=== PATIENT | female | born 1935 | race Caucasian/White ===

== ENCOUNTER 2016-07-17 18:00 | Inpatient (IN) | payer MEDICARE ==
[~2016-07-17] VITALS: Ht 149.9 cm; Wt 59.5 kg
[~2016-07-17 18:00] MED LIST: ASPI-611 PO; ATOR20TA18 PO; CEPH500C2 PO; DEXT37.56 PO; ESCI10TA PO; GLIM2TAB3 PO; HALO0.5T PO; LISI-625 PO; METF500T4 PO; TIMO5DRO7 RIGHT EYE
--- OUTSIDE RECORDS SUMMARY | 2016-07-17 18:03 | XMS REPORT | Referral Summary ---
Author Author [facility], Family Medicine Organization [facility] Address Unknown Phone Unavailable Care Team Providers Care Care Management Associate Name Role Phone Carlos Vasquez Primary Care Physician [phone] Encounter VC Date(s): 04/03/16 - 04/03/16 [facility], [address] [place] [id number] Discharge Diagnosis: Leg edema Discharge Diagnosis: Benign hypertension Discharge Diagnosis: E-coli UTI Discharge Diagnosis: Diabetes type 2, controlled Discharge Diagnosis: Confusion Discharge Disposition: 01-Home or Self Care Attending Physician: Shanna Umana APRN Admitting Physician: Shanna Umana APRN Vital Signs Most recent to 1 oldest [Reference Range]: Temperature Tympanic 36.0 degC [36.6-38.1 degC] *LOW* (04/03/16 3:52 PM) Peripheral Pulse 116 bpm Rate [60-100 bpm] *HI* (04/03/16 3:52 PM) Blood Pressure 156/64 mmHg [90-140/60-90 mmHg] *HI* (04/03/16 3:52 PM) SpO2 97 % (04/03/16 3:52 PM) Problem List Condition Effective Dates Status Health Status Informant Anemia(Confirmed) Active Benign Active hypertension(Confirm ed) OAB (overactive Active bladder)(Confirmed) Chicken < 01/20/14 Resolved pox(Confirmed) Female bladder Active prolapse(Confirmed) Iron deficiency Active anemia (disorder)(Confirmed ) Iron deficiency Active anemia(Confirmed) Mixed hyperlipidemia Active (disorder)(Confirmed ) Mixed Active hyperlipidemia(Confi rmed) Nonproliferative Active diabetic retinopathy (disorder)(Confirmed ) Osteoarthritis(Confi Active rmed) Osteopenia(Confirmed Active ) Diabetes type 2, Active controlled(Confirmed ) Vitamin B12 Active deficiency(Confirmed ) Allergies, Adverse Reactions, Alerts Substance Reaction Severity Status aloe vera Active ciprofloxacin nausea Active naproxen Active sulfamethoxazole n/v Active trimethoprim n/v Active Medications aspirin 81 mg oral tablet 1 tabs, Oral, Daily, 0 Refill(s) Start Date: 01/20/14 Status: Ordered atorvastatin 20 mg oral tablet See Instructions, TAKE ONE-HALF TABLET BY MOUTH ONCE DAILY, # 45 tabs, 3 Refill( s), eRx: [id number], TAKE ONE-HALF TABLET BY MOUTH ONCE DAILY Start Date: 12/14/15 Status: Ordered Detrol 1 mg oral tablet 1 mg 1 tabs, Oral, Bedtime (once a day), 2 tabs, # 60 tabs, 0 Refill(s), Pharmacy: [place] [id number], 1 tabs Oral Bedtime (once a day) Start Date: 09/02/14 Status: Ordered Diltiazem Hydrochloride CD 240 mg/24 hours oral capsule, extended release 240 mg 1 caps, Oral, Daily, # 90 caps, 1 Refill(s), Pharmacy: [place] [id number], 1 caps Oral Daily Start Date: 07/07/15 Status: Ordered furosemide 20 mg oral tablet 20 mg 1 tabs, Oral, Daily, # 30 tabs, 0 Refill(s), Pharmacy: [place] [id number], 1 tabs Oral Daily Start Date: 04/03/16 Status: Ordered glimepiride 2 mg oral tablet See Instructions, TAKE ONE half TABLET BY MOUTH ONCE DAILY, # 90 tabs, 1 Refill (s), eRx: [id number], TAKE ONE TABLET BY MOUTH ONCE DAILY Start Date: 12/01/15 Status: Ordered Lexapro 10 mg oral tablet 10 mg 1 tabs, Oral, Daily, # 30 tabs, 0 Refill(s) Start Date: 04/03/16 Status: Ordered lisinopril 40 mg oral tablet See Instructions, TAKE ONE half TABLET BY MOUTH ONCE DAILY, # 30 tabs, 5 Refill( s), eRx: [id number], TAKE ONE TABLET BY MOUTH ONCE DAILY Start Date: 12/01/15 Status: Ordered metFORMIN 500 mg oral tablet See Instructions, TAKE TWO TABLETS BY MOUTH TWICE DAILY, # 360 tabs, 1 Refill(s) , eRx: [facility]28, TAKE TWO TABLETS BY MOUTH TWICE DAILY Start Date: 04/03/16 Status: Ordered Miscellaneous DME DME Item SEPTEMBER SUBSTITUE: SYRINGE TO INJECT VITAMIN B12 1ML, See Instructions, # 50 Each, 11 Refill(s), Pharmacy: [id number] SUBSTITUE: SYRINGE TO INJECT VITAMIN B12 1ML, Supply Start Date: 10/30/14 Status: Ordered potassium chloride 10 mEq oral tablet, extended release 10 mEq 1 tabs, Oral, Daily, # 30 tabs, 0 Refill(s), Pharmacy: [facility], 1 tabs Oral Daily Start Date: 04/03/16 Status: Ordered timolol maleate 0.5% ophthalmic solution 1 drops, Eye-Right, Daily, 0 Refill(s) Start Date: 08/04/15 Status: Ordered Results No data available for this section Immunizations Vaccine Date Refusal Reason tetanus/diphth/pertuss (Tdap) adult/adol 01/09/12 influenza virus vaccine, inactivated 01/26/16 influenza virus vaccine, live 02/11/13 influenza virus vaccine, live 02/16/12 pneumococcal 13-valent conjugate vaccine 07/24/14 pneumococcal 23-polyvalent vaccine 12/05/04 zoster vaccine live 01/09/12 Procedures Procedure Date Related Diagnosis Body Site Diabetic foot examination 01/26/16 Arthroscopy of knee 12/30/08 Chondroplasty 12/30/08 Carpal tunnel release Hysterectomy Pars plana vitrectomy Tonsillectomy Social History Social History Type Response Smoking Status Never smoker Assessment and Plan Extracted from: Title: Office Visit Note-UTI/other Author: Shanna Umana COLLECTIONS TECHNICIAN Date: 04/03/16 issues Assessment/Plan 1.E-coli UTI Sx improving. Cont Keflex. Encourage patient to push fluids. 2.Diabetes type 2, controlled Diabetes was under good control when on medications. I suspect as we discussed with him going on for the last few weeks at home that she has not been taking her medications correctly. I anticipate her blood sugars normalizing over the next few days. Plan to recheck onThursday. 3.Benign hypertension Blood pressure under acceptable control. Mildly tachycardic. Suspected tachycardia related to being off verapamil 4.Confusion Multifactorialfactorial. Could be related to infection, mild hyperglycemia 5.Leg edema Suspect related to tachycardia and fluid bolus in the ER. Furosemide 20 mg daily pluspotassium 10 mEq daily. Discussion with patient and son regarding medications. He is going to set these up for patient. I think for now to reasonable to continue the Lexapro. If confusion persists we may want to change that. Plan follow-up on or soonerif things change.
--- OUTSIDE RECORDS SUMMARY | 2016-07-17 18:04 | XMS REPORT | Referral Summary ---
Author Author [facility], [facility] Medicine Organization [facility] Address Unknown Phone Unavailable Care Team Providers Care Senior Ios Developer Name Role Phone Carlos Vasquez Primary Care Physician [phone] Encounter VC Date(s): 04/10/16 - 04/10/16 [facility], [address] [place] [address] Discharge Diagnosis: E-coli UTI Discharge Diagnosis: Mild depression Discharge Diagnosis: Hyponatremia Discharge Diagnosis: Benign hypertension Discharge Disposition: 01-Home or Self Care Attending Physician: Shanna Umana APRN Admitting Physician: Shanna Umana APRN Vital Signs Most recent to 1 oldest [Reference Range]: Temperature Tympanic 36.3 degC [36.6-38.1 degC] *LOW* (04/10/16 10:12 AM) Peripheral Pulse 88 bpm Rate [60-100 bpm] (04/10/16 10:12 AM) Blood Pressure 122/66 mmHg [90-140/60-90 mmHg] (04/10/16 10:12 AM) Problem List Condition Effective Dates Status Health Status Informant Anemia(Confirmed) Active Benign Active hypertension(Confirm ed) OAB (overactive Active bladder)(Confirmed) Chicken < 01/20/14 Resolved pox(Confirmed) Female bladder Active prolapse(Confirmed) E-coli Active UTI(Confirmed) Iron deficiency Active anemia (disorder)(Confirmed ) Iron [...] # 45 tabs, 3 Refill( s), eRx: [id number], TAKE ONE-HALF TABLET BY MOUTH ONCE DAILY Start Date: 12/14/15 Status: Ordered Detrol 1 mg oral tablet 1 mg 1 tabs, Oral, Bedtime (once a day), 2 tabs, # 60 tabs, 0 Refill(s), Pharmacy: [place] [id number], 1 tabs Oral Bedtime (once a day) Start Date: 09/02/14 Status: Ordered Diltiazem Hydrochloride CD 240 mg/24 hours oral capsule, extended release 240 mg 1 caps, Oral, Daily, # 90 caps, 1 Refill(s), Pharmacy: [place] [id number], 1 caps Oral Daily Start Date: 07/07/15 Status: Ordered furosemide 20 mg oral tablet 20 mg 1 tabs, Oral, Daily, # 30 tabs, 0 Refill(s), Pharmacy: [place] [id number], 1 tabs Oral Daily Start Date: 04/03/16 Status: Ordered glimepiride 2 mg oral tablet See Instructions, TAKE ONE half TABLET BY MOUTH ONCE DAILY, # 90 tabs, 1 Refill (s), eRx: [facility] 2428, TAKE ONE TABLET BY MOUTH ONCE DAILY Start Date: 12/01/15 Status: Ordered Lexapro 10 mg oral tablet 10 mg 1 tabs, Oral, Daily, # 30 tabs, 0 Refill(s) Start Date: 04/03/16 Status: Ordered lisinopril 40 mg oral tablet See Instructions, TAKE ONE half TABLET BY MOUTH ONCE DAILY, # 30 tabs, 5 Refill( s), eRx: [facility]28, TAKE ONE TABLET BY MOUTH ONCE DAILY Start Date: 12/01/15 Status: Ordered metFORMIN 500 mg oral tablet See Instructions, TAKE TWO TABLETS BY MOUTH TWICE DAILY, # 360 tabs, 1 Refill(s) , eRx: [facility] 2428, TAKE TWO TABLETS BY MOUTH TWICE DAILY Start Date: 04/03/16 Status: Ordered Miscellaneous DME DME Item MAY SUBSTITUE: SYRINGE TO INJECT VITAMIN B12 1ML, See Instructions, # 50 Each, 11 Refill(s), Pharmacy: [facility] [id number] SUBSTITUE: SYRINGE TO INJECT VITAMIN B12 1ML, Supply Start Date: 10/30/14 Status: Ordered potassium chloride 10 mEq oral tablet, extended release 10 mEq 1 tabs, Oral, Daily, # 30 tabs, 0 Refill(s), Pharmacy: [id number], 1 tabs Oral Daily Start Date: 04/03/16 Status: Ordered timolol maleate 0.5% ophthalmic solution 1 drops, Eye-Right, Daily, 0 Refill(s) Start Date: 08/04/15 Status: Ordered Results Hematology Most recent to 1 oldest [Reference Range]: WBC [4.8-10.8 10.6 10*3/uL 10*3/uL] (04/10/16 11:02 AM) RBC [4.00-5.20] 4.06 (04/10/16 11:02 AM) Hgb [12.0-16.0 11.0 gm/dL gm/dL] *LOW* (04/10/16 11:02 AM) Hct [37.0-47.0 %] 34.1 % *LOW* (04/10/16 11:02 AM) MCV [82.0-99.0 fL] 84.0 fL (04/10/16 11:02 AM) MCH [27.0-32.0 pg] 27.1 pg (04/10/16 11:02 AM) MCHC [32.0-36.0 32.3 gm/dL gm/dL] (04/10/16 11:02 AM) RDW [11.5-14.5 %] 14.1 % (04/10/16 11:02 AM) Platelet [150-400 265 10*3/uL 10*3/uL] (04/10/16 11:02 AM) MPV [8.8-14.8 fL] 11.0 fL (04/10/16 11:02 AM) Immature 0.3 % Granulocytes (04/10/16 11:02 AM) [0.0-1.0 %] Neutrophils [51-75 65 % %] (04/10/16 11:02 AM) Lymphocytes [20-46 26 % %] (04/10/16 11:02 AM) Monocytes [4-11 %] 7 % (04/10/16 11:02 AM) Eosinophils [0-4 %] 2 % (04/10/16 11:02 AM) Basophils [0-2 %] 0 % (04/10/16 11:02 AM) Neutro Absolute 6.89 10*3 [1.90-7.00 10*3] (04/10/16 11:02 AM) Lymph Absolute 2.75 10*3 [0.80-3.30 10*3] (04/10/16 11:02 AM) [place] Absolute 0.76 10*3 [0.30-1.00 10*3] (04/10/16 11:02 AM) Eos Absolute 0.18 10*3 [0.00-0.50 10*3] (04/10/16 11:02 AM) Baso Absolute 0.04 10*3 [0.00-0.20 10*3] (04/10/16 11:02 AM) Chemistry Most recent to 1 oldest [Reference Range]: BNP [0-99 pg/mL] 29 pg/mL (04/10/16 11:02 AM) Sodium Venous 137 mmol/L [136-144 mmol/L] (04/10/16:02 AM) Potassium Venous 3.9 mmol/L 1 [3.6-5.1 mmol/L] (04/10/16 11:02 AM) Calcium Ionized 1.17 mmol/L Venous [1.19-1.41 *LOW* mmol/L] (04/10/16: AM) Total CO2 Venous 25 mmol/L [25-29 mmol/L] (04/10/16 11:02 AM) Glucose Venous 110 mg/dL [70-100 mg/dL] *HI* (04/10/16 11:02 AM) BUN Venous [4-20] 28 *HI* (04/10/16 11:02 AM) Creatinine Venous 1.1 mg/dL [0.4-1.0 mg/dL] *HI* (04/10/16 11:02 AM) Venous CL [99-109 95 mmol/L mmol/L] *LOW* (04/10/16 11:02 AM) TSH with Reflex Free 2.09 T4 [0.35-4.94] (04/10/16 11:02 AM) Hgb A1c [4.1-5.6 %] 7.1 % *HI* (04/10/16 11:02 AM) eAvg Glucose 157.1 mg/dL (04/10/16 11:02 AM) 1Result Comment: This test was performed on a whole blood specimen. The presence or absence of hemolysis cannot be assessed. Hemolysis can falsely elevate potassium levels. Normals are for venous specimens only. Immunizations Vaccine Date Refusal Reason tetanus/diphth/pertuss (Tdap) [...] and Plan Extracted from: Title: Office Visit Note-confusion Author: Shanna Umana CUSHION PADDER Date: 04/10/16 recheck Assessment/Plan 1.Mental confusion Improvingover the last week. Suspect her confusion was multifactorial. Sunday continue providing full-time care. Encouraged him to work towarda long-term solutionto that she has optionsavailable to her. She has completed DO NOT RESUSCITATE paperwork. 2.Diabetes type 2, controlled Improving control now that she is back on medications and eating appropriately. Continue to monitor. No medication changes. Plan follow-up in one week. Ordered: Hemoglobin A1c 3.Leg edema Improving. Continue furosemide. Chemistry today shows normalrenal function. Electrolytes acceptable. 4.Hyponatremia History of hyponatremia. I think this isimportant to keep in mind if she developsincreasing confusion. 5.Benign hypertension Well controlled. Continue same. 6.E-coli UTI Clinically improving. Complete course of Keflex. 7.Mild depression Recently started on Lexapro. Mood seems to be better today. Anemia Mild. Near baseline. Plan follow-up in one week or sooner if needs arise. Overall she is significantly better than she was a week ago.
--- OUTSIDE RECORDS SUMMARY | 2016-07-17 18:05 | XMS REPORT | Continuity of Care Document ---
Author Author [facility] Organization [facility] Address Unknown Phone Unavailable Support Name Relationship Address Phone PHYLLISELIEL PARIKH HALLEY Caregiver [address] [place] [address] Unavailable DANNY KNOX MD Caregiver [address] [place] [id number] Unavailable DANNY KONX MD Caregiver [address] [place] [phone] Unavailable LIVSHAYLEE SHARPIE Next Of Kin [address] [place], [place] [id number] Insurance Providers Guarantor Sherice Robles Address [address] [place] [address] Email DENIED/NO TO PORTAL Payer Medicare Policy Number [id number] Subscriber's Name Sherice Robles Relationship 18 Self Effective Date 00 Payer [facility] Policy Number [id number] Subscriber's Name Sherice Robles Relationship 18 Self Group Number [id number] Advance Directives Directive Response Recorded Date/Time Dr Lozano Resuscitation Status Do Not Resuscitate 06/16/16 4:00pm Resuscitation Documents on File No 06/16/16 8:03pm DPOA for Healthcare Only Yes 06/17/16 11:11am Living Will No 06/16/16 8:03pm Problems Active Problems Medical Problem Onset Date Status Acute encephalopathy Unknown Acute Delirium due to general medical condition Unknown Acute Depression Unknown Chronic Dyslipidemia Unknown Chronic Generalized muscle weakness Unknown Acute Hypertension Unknown Chronic Hypertension Unknown Chronic Mild dementia Unknown Chronic Neurocognitive disorder Unknown Chronic Type II diabetes mellitus Unknown Chronic UTI (urinary tract infection) Unknown Resolved Past Problems Medical Problem Onset Date Dehydration Unknown Dementia Unknown Depression Unknown UTI (urinary tract infection) Unknown UTI (urinary tract infection) Unknown Urinary tract infection Unknown Medications Current Home Medications Medication Dose Units Route Directions Days Qty Instructions Start Date Aspirin 81 Mg Tablet 81 Mg Oral Daily 12/29/08 Atorvastatin Calcium (Lipitor) 20 Mg Tablet 10 Mg Oral Qd Cephalexin 500 Mg Capsule 500 Mg Oral Q8h @ 0100/0900/1700 5 Days 15 Capsule 02/21/17 Dextrose (Glutose 15) 37.5 Gm Gel..gram. 37.5 G Oral As Needed as needed for Hypoglycemia 1 Application 06/16/16 Escitalopram Oxalate (Lexapro) 10 Mg Tablet 1 Tab Oral Daily 30 Tablet 03/31/16 Glimepiride 2 Mg Tablet 2 Mg Oral Qd 06/13/16 Haloperidol 0.5 Mg Tablet 0.5 Mg Oral Every 4 Hours as needed for Agitation / Restlessness 30 Tablet 06/16/16 Haloperidol 0.5 Mg Tablet 0.5 Mg Oral Twice A Day 60 Tablet Lisinopril 5 Mg Tablet 5 Mg Oral Daily for Hypertension 06/16/16 Metformin Hcl 500 Mg Tablet 500 Mg Oral Twice Daily With Meals Take one tablet, by mouth, 2 times a day with Meals. 06/13/16 Timolol Maleate 5 Ml Drops 1 Drop Right Eye Only Twice A Day 5 Milliliter 06/13/16 Past Home Medications Medication Directions Ordered Status Cephalexin 500 Mg Capsule, 500 Mg Oral Q8h @ 0100/0900/1700 06/16/16 Discontinued Dextrose 50 % In Water (Dextrose 50%-Water Abboject) 50 Ml Syringe, 25 Ml Intraven As Needed as needed for Hypoglycemia 06/16/16 Discontinued Furosemide 20 Mg Tablet, 10 Mg Oral Qd 06/13/16 Discontinued Haloperidol 0.5 Mg Tablet, 0.5 Mg Oral Twice A Day 06/16/16 Discontinued Insulin Regular, Human (Humulin R) 1 Ml Inj, 0 Sub-Q Sliding Scale as needed for Prn Orders 06/16/16 Discontinued Lisinopril 10 Mg Tablet, 10 Mg Oral Daily 06/16/16 Discontinued Lisinopril 5 Mg Tablet, 5 Mg Oral Daily for Hypertension 06/13/16 Discontinued Social History Social History Problem Response Recorded Date/Time Onset Date Status Reason for Hospitalization UTI, Generalized weakness, Disuse myopathy, encephalopathy 06/27/2016 1:41pm Not Applicable Not Applicable Hx Substance Use No 06/13/2016 5:30pm Not Applicable Not Applicable Hx Alcohol Use No 06/13/2016 5:30pm Not Applicable Not Applicable Has the pt used tobacco in the last 12 months No 06/16/2016 8:06pm Not Applicable Not Applicable Query Response Start Date Stop Date Smoking Status Never smoker Hospital Discharge Instructions Instructions: Care Instructions: Reason for Hospitalization: UTI, Generalized weakness, Disuse myopathy, encephalopathy I was in the hospital because (patient own words): "I had some bad infections that weren't getting well." Discharge Diet: ada Discharge Activity: with assistive device. Follow Up Appointments: Dr. Hay Vasquez on 07/13/16 at 1:30 pm for Hosp. follow-up. [address] [place] [address]. . Pending Lab / Results: No Pending Lab Patient Instructions: Cont with physical therapy. Remember to use your walker. Wound/Incision Care: na Durable Medical Equipment: Walker Pain Scale Utilized to Educate Patient: 0-10 Pain Scale Pain Management/Treatment: Tylenol Expected Signs/Symptoms: Weakness, Fatigue Notify Physician If: Fever, Fall During Business Hours:: Please call the physician's office at [phone] After Business Hours:: Please call [phone] and have the long wall shear operator page the physician. Condition at time of discharge: Fair Plan of Care Discharge Date 06/27/16 3:48pm Disposition 01 DISCHARGED HOME, SELF-CARE Prescriptions See Medication Section Additional Instructions/Education Need to follow up with urology, to check on urine culture and chronic UTI. Care Plan and Goals See Discharge Instructions Section Functional Status Query Response Date Recorded Mobility Status Ambulatory w/assist June 27, 2016 1:41pm Assistive Devices Front Wheeled Walker June 27, 2016 1:41pm Activity Limitations Weakness June 27, 2016 1:41pm Feeding Ability Independent June 27, 2016 1:41pm Toileting Ability Assist June 27, 2016 1:41pm Grooming Ability Assist June 27, 2016 1:41pm Dressing Ability Assist June 27, 2016 1:41pm Driving Ability Dependent June 27, 2016 1:41pm Housework Ability Assist June 27, 2016 1:41pm Meal Preparation Ability Assist June 27, 2016 1:41pm Stair Climbing Ability Assist June 27, 2016 1:41pm Ability to complete ADL's impeded by Impaired Mobility June 27, 2016 1:41pm Cognitive/Perceptual Impairments Acute confusion June 27, 2016 1:41pm Preferred Method of Learning Demonstration Listening Hands on June 25, 2016 4:03pm Allergies, Adverse Reactions, Alerts Allergen Type Severity Reaction Status Last Updated aloe Allergy Intermediate HANDS SWELL Active 06/13/16 Naproxen Adverse Reaction Mild NAUSEA Active 06/13/16 IODINE DYE Allergy Intermediate "BAD" "COULD NOT WAKE UP" Active 09/06/07 Immunizations Immunization Event Date Type Not Given Reason Dose Number 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 02/09/09 Query Response on File Recorded Date/Time Hx Influenza Vaccination Y March 2016 (per pt. and family) 06/16/16 8:06pm Hx Pneumococcal Vaccination Y 06/15/16 06/16/16 8:06pm Hx Influenza Vaccination Y March 2016 (per pt. and family) 06/16/16 8:06pm Influenza Vaccine Hx March 2016 (per pt. and family) 06/16/16 8:09pm Vital Signs Acute Vital Signs Vital Response Date/Time Temperature (Fahrenheit) 98.2 deg F (96.8 - 99.1) 06/27/2016 7:34am Temperature (Calculated Celsius) 36.05744 degrees C (36.0 - 37.3) 06/27/2016 7:34am Pulse Rate (adult) 70 bpm (60 - 100) 06/27/2016 8:00am Respiratory Rate 20 breaths/min (10 - 20) 06/27/2016 8:00am O2 Sat by Pulse Oximetry 96 % (90 - 100) 06/27/2016 7:34am Oxygen Delivery Method Room Air 06/27/2016 7:34am Blood Pressure 139/64 mm Hg 06/27/2016 7:34am Blood Pressure Source Automatic Cuff 06/27/2016 7:34am Height (Feet) 4 feet 06/27/2016 10:05am Height (Inches) 11.00 inches 06/27/2016 10:05am Weight (Kilograms) 69.000 kg 06/17/2016 5:14am Body Mass Index (BMI) 27.7 06/16/2016 3:25pm Results Laboratory Results Test Name Result Units Flags Reference Collection Date/Time Result Date/ Time Comments Troponin I < 0.012 ng/ml 0-0.12 03/30/2016 7:14pm 03/30/2016 7:40pm Troponin values with a difference of 55% increase from orginal troponin value represent a true biological DELTA value. (%increase Calc=Orginal Troponin value, divided by subsequent Troponin value, multiplied by 100) Plasma Lactate 1.3 MMOL/L 0.6-2.2 03/30/2016 8:18pm 03/30/2016 8:47pm Procalcitonin < 0.05 NG/ML 03/30/2016 8:18pm 03/30/2016 9:06pm PCT < /=0.5 ng/mL - sepsis not likely; PCT >0.5 and </=2 ng/mL - sepsis possible; PCT >2 ng/mL - sepsis likely; PCT >/=10 ng/mL - systemic inflammatory response - sepsis or septic shock highly indicated. Urine WBC Clumps FEW 03/30/2016 7:31pm 03/30/2016 7:49pm Total Bilirubin 0.50 MG/DL 0.20-1.30 06/13/2016 5:33pm 06/13/2016 5: 48pm Alkaline Phosphatase 62 U/L 38-126 06/13/2016 5:33pm 06/13/2016 5:48pm Total Protein 7.6 G/DL 6.3-8.2 06/13/2016 5:33pm 06/13/2016 5:48pm Albumin 4.3 G/DL 3.5-5.0 06/13/2016 5:33pm 06/13/2016 5:48pm Globulin 3.3 G/DL 2.4-3.6 06/13/2016 5:33pm 06/13/2016 5:48pm Albumin/Globulin Ratio 1.3 RATIO 1.1-2.2 06/13/2016 5:33pm 06/13/2016 5 :48pm Aspartate Amino Transf (AST/SGOT) 18 U/L 14-36 06/13/2016 5:33pm 2016 5:48pm Alanine Aminotransferase (ALT/SGPT) 36 U/L 9-52 06/13/2016 5:33pm 06/13 5:48pm Vitamin B12 Level > 1000 PG/ML H 239-931 06/14/2016 8:13pm 06/16/2016 2: 35am Folate 13.6 NG/ML 2.76-20 06/14/2016 8:13pm 06/16/2016 2:35am NORMAL ADULT RANGE: 2.76->20 ng/mL Thyroid Stimulating Hormone (TSH) 2.65 MIU/L 0.47-4.68 06/13/2016 5: 33pm 06/13/2016 6:18pm White Blood Count 9.6 T/MM3 4.5-11.0 06/17/2016 4:50am 06/17/2016 5: 42am Red Blood Count 3.99 M/MM3 L 4.00-5.20 06/17/2016 4:50am 06/17/2016 5: 42am Hemoglobin 11.0 GM/DL L 12-16 06/17/2016 4:50am 06/17/2016 5:42am Hematocrit 34.3 % L 36-46 06/17/2016 4:50am 06/17/2016 5:42am Mean Corpuscular Volume 86.0 UM3 80-100 06/17/2016 4:50am 06/17/2016 5: 42am Mean Corpuscular Hemoglobin 27.6 UUG 26-34 06/17/2016 4:50am 2016 5:42am Mean Corpuscular Hemoglobin Concent 32.1 GM/DL 31-37 06/17/2016 4:50am 06/17/2016 5:42am RDW Standard Deviation 49.0 FL 36.9-50.2 06/17/2016 4:50am 06/17/2016 5 :42am Platelet Count 264 T/MM3 130-400 06/17/2016 4:50am 06/17/2016 5:42am Mean Platelet Volume 10.2 UM3 9.4-12.4 06/17/2016 4:50am 06/17/2016 5: 42am Neutrophils (%) (Auto) 51.3 % 33-66 06/17/2016 4:50am 06/17/2016 5: 42am Lymphocytes (%) (Auto) 36.5 % 23-45 06/17/2016 4:50am 06/17/2016 5: 42am Monocytes (%) (Auto) 8.3 % 0-9.0 06/17/2016 4:50am 06/17/2016 5:42am Eosinophils (%) (Auto) 3.5 % 0-4 06/17/2016 4:50am 06/17/2016 5:42am Basophils (%) (Auto) 0.3 % 0-2 06/17/2016 4:50am 06/17/2016 5:42am Immature Granulocyte % (Auto) 0.1 % 0.0-0.5 06/17/2016 4:50am 2016 5:42am Absolute Neutrophils (auto) 4.9 T/MM3 1.8-7.7 06/17/2016 4:50am 2016 5:42am Absolute Lymphocytes (auto) 3.5 T/MM3 1-4.8 06/17/2016 4:50am 2016 5:42am Absolute Monocytes (auto) 0.8 T/MM3 0-0.8 06/17/2016 4:50am 06/17/2016 5:42am Absolute Eosinophils (auto) 0.3 T/MM3 0-0.5 06/17/2016 4:50am 2016 5:42am Absolute Basophils (auto) 0.0 T/MM3 0-0.2 06/17/2016 4:50am 06/17/2016 5:42am Absolute Immature Granulocyte (auto 0.01 T/MM3 0.00-0.03 06/17/2016 4: 50am 06/17/2016 5:42am Icterus Index < 2 0-7 06/17/2016 4:50am 06/17/2016 5:52am Chemistry Specimen Hemolysis < 15 0-25 06/17/2016 4:50am 06/17/2016 5 :52am 0-25: Specimen Exhibited No Hemolysis. Turbidity < 20 0-20 06/17/2016 4:50am 06/17/2016 5:52am Sodium Level 134 MEQ/L 134-144 06/17/2016 4:50am 06/17/2016 5:52am Potassium Level 4.1 MEQ/L 3.6-5 06/17/2016 4:50am 06/17/2016 5:52am Chloride Level 98 MEQ/L 98-107 06/17/2016 4:50am 06/17/2016 5:52am Carbon Dioxide Level 27 MEQ/L 22-30 06/17/2016 4:50am 06/17/2016 5: 52am Anion Gap 9 MEQ/L 5-15 06/17/2016 4:50am 06/17/2016 5:52am Blood Urea Nitrogen 15.0 MG/DL D 7-17 06/17/2016 4:50am 06/17/2016 6: 21am Creatinine 0.8 MG/DL 0.7-1.2 06/17/2016 4:50am 06/17/2016 5:52am BUN/Creatinine Ratio 19 RATIO 6-26 06/17/2016 4:50am 06/17/2016 5:52am Glomerular Filtration Rate Calc 69 06/17/2016 4:50am 06/17/2016 5: 52am Glucose Level 158 MG/DL H 65-110 06/17/2016 4:50am 06/17/2016 5:52am Calculated Osmolality 262 MOSM/KG 261-280 06/17/2016 4:50am 06/17/2016 5:52am Calcium Level 9.4 MG/DL 8.4-10.2 06/17/2016 4:50am 06/17/2016 5:52am Urine Collection Type VOIDED-NOT CC-MIDSTR 06/26/2016 10:33am 06/26 10:41am Urine Color YELLOW YELLOW 06/26/2016 10:33am 06/26/2016 10:41am Urine Turbidity SL CLOUDY CLEAR 06/26/2016 10:33am 06/26/2016 10: 41am Urine Specific [place] 1.010 L 1.015-1.025 06/26/2016 10:33am 2016 10:41am Urine pH 7.5 5.0-8.0 06/26/2016 10:33am 06/26/2016 10:41am Urine Leukocyte Esterase 3+ A NEGATIVE 06/26/2016 10:33am 06/26/2016 10:41am Urine Nitrite NEGATIVE NEGATIVE 06/26/2016 10:33am 06/26/2016 10: 41am Urine Protein NEGATIVE NEGATIVE 06/26/2016 10:33am 06/26/2016 10: 41am Urine Glucose (UA) TRACE A NEGATIVE 06/26/2016 10:33am 06/26/2016 10: 41am Urine Ketones NEGATIVE NEGATIVE 06/26/2016 10:33am 06/26/2016 10: 41am Urine Urobilinogen 0.2 EU/DL NORMAL 06/26/2016 10:33am 06/26/2016 10: 41am Urine Bilirubin NEGATIVE NEGATIVE 06/26/2016 10:33am 06/26/2016 10: 41am Urine Blood NEGATIVE NEGATIVE 06/26/2016 10:33am 06/26/2016 10:41am Urine WBC 10-20 /HPF H 0-5 06/26/2016 10:33am 06/26/2016 10:50am Urine RBC 0-1 /HPF 0-3 06/26/2016 10:33am 06/26/2016 10:50am Urine Squamous Epithelial Cells 5-10 06/26/2016 10:33am 06/26/2016 10:50am Urine Bacteria 1+ H NEGATIVE 06/26/2016 10:33am 06/26/2016 10:50am Urine Culture Indicated CULT NOT INDICATED 06/26/2016 10:33am 06/26 10:50am Glucometer 122 mg/dL H 65-110 06/27/2016 11:41am 06/27/2016 11:47am Microbiology Results Procedure Source Organism/Result Collection Date/Time Result Date/Time Result Status Urine Culture Urine, Straight Cath GRAM POSITIVE MARY 06/13/2016 5:47pm 04/2017 6:13am Final Urine Culture Not Provided CULTURE INITIATED - RESULTS PENDING 06/27/2016 2 :37pm 06/27/2016 2:47pm Preliminary Name: SHERICE ROBLES Unit #: [id number] : 1935 Sex: F DISCHARGE SUMMARY Admit Date: 06/16/16 Report #: [id number] [facility] General Date Date DATE: 06/27/16 TIME: 12:32 Attending Physician Danny Knox MD Admitting Physician Danny Knox MD Consulting Physician Livia Bermeo MD Admitting Diagnosis metabolic encephalopathy Disuse myopathy Discharge Diagnosis metabolic encephalopathy, Disuse myopathy, DM type II, UTI Laboratory Laboratory Tests Test 06/26/16 05:49 06/26/16 10:33 06/26/16 11:40 06/26/16 17:06 Glucometer 105mg/dL (65-110) 139mg/dL (65-110) 146mg/dL (65-110) Urine Collection Type Voided-not cc-midstr Urine Color Yellow (YELLOW) Urine Turbidity Sl cloudy (CLEAR) Urine pH 7.5 (5.0-8.0) Urine Specific [place] 1.010 (1.015-1.025) Urine Protein Negative (NEGATIVE) Urine Glucose (UA) Trace (NEGATIVE) Urine Ketones Negative (NEGATIVE) Urine Blood Negative (NEGATIVE) Urine Nitrite Negative (NEGATIVE) Urine Bilirubin Negative (NEGATIVE) Urine Urobilinogen 0.2EU/DL (NORMAL) Urine Leukocyte Esterase 3+ (NEGATIVE) Urine RBC 0-1/HPF (0-3) Urine WBC 10-20/HPF (0-5) Urine Squamous Epithelial Cells 5-10 Urine Bacteria 1+ (NEGATIVE) Urine Culture Indicated Cult not indicated Test 06/26/16 21:51 06/27/16 05:41 06/27/16 11:41 Glucometer 90mg/dL (65-110) 130mg/dL (65-110) 122mg/dL (65-110) History of Present Illness 80 year old female admitted to IRU for weakness and instability following UTI and encephalopathy. She had fallen several days prior to admission on 06/14 and presented to ED. Dx with acute UTI and confusion. She has a hx of Type II DM with sugars that have been well controlled during hospital admit. Urine culture still pending, but she improved on rocephin and keflex. Confusion/encephalopathy has shown some improvement as well, but is not resolved and pt is not able to care for herself at this time. Hospital Course 06/19/16 Continue with Keflex through 06/21 for treatment of UTI. Continue to monitor blood sugars. Pressure has been mildly elevated. Will continue to monitor. She is on lisinopril 5 milligrams daily. Continue to encourage work with PT and OT. She continues to get stronger. Rehabilitation as per Dr Knox 06/21/16 Will complete Keflex today for treatment of UTI. Continue to monitor blood sugars, fasting BGM this morning is 89 Blood pressure well controlled on lisinopril 5 milligrams daily. Continue to encourage work with PT and OT. Some concern regarding safety. Will obtain LIYAH exam by OT Rehabilitation as per Dr Knox 06/23/16 Staff report patient has frequent urination. She did complete round of Keflex for recent urinary tract infection. Last dose on 06/21. We will recheck a urinalysis today. Continue to monitor blood sugars, she did have a low sugar last evening, down to 39. Fasting sugar this morning was 101. Will discontinue sliding scale insulin, and continue only on metformin 500 milligrams twice a day. If she does continue to have low sugars may need to decrease this dose. Blood pressure well controlled on lisinopril 5 milligrams daily. Continue to encourage work with PT and OT. Some concern regarding safety. Rehabilitation as per Dr Knox [phone] spoke with patient's daughter as requested. She has concerns about amount of changes in blood sugars and also recent lows. We will discontinue the sliding scale insulin and continue to monitor. She is also concerned that patient's diet is not being managed carefully by dietary 06/26/16 No further episodes of Hypoglycemia since discontinuing sliding scale insulin and Amaryl. Did speak with dietary last Sunday as patients daughter was concerned she was getting too many carbs. Dietary adjustments were made. Will recheck a UA today given symptoms. She did complete Keflex on 06/21 for treatment of UTI Continue to encourage work with PT/OT Problems: (1) Hypertension Status: Chronic Assessment & Plan: Continue with current medical plan, patient on oral diabetic meds. (2) Neurocognitive disorder Status: Chronic Assessment & Plan: Haldol 0.5 mg as needed. (3) Acute encephalopathy Status: Acute Assessment & Plan: Resolving (4) UTI (urinary tract infection) Status: Resolved Assessment & Plan: Patient was treated, UTI appeared to resolve. However she complained of symptoms UA was repeated and showed UTI. She was restarted on Keflex, being discharged to follow-up on culture and chronic UTI with urology. She will set up the appointment through her primary care provider. (5) Generalized muscle weakness Status: Acute Assessment & Plan: Physical therapy and occupational therapy have improved her FIM score significantly. Patient is appropriate for discharge to home. (6) Type II diabetes mellitus Status: Chronic Assessment & Plan: Sugars are stable. Code Status Do Not Resuscitate Home Meds Active Scripts Haloperidol (Haloperidol) 0.5 Mg Tablet, 0.5 MG PO BID, #60 TAB Prov:DANNY KNOX MD 06/27/16 Cephalexin (Cephalexin) 500 Mg Capsule, 500 MG PO Q8HR for 5 Days, #15 CAP Prov:DANNY KNOX MD 06/27/16 Dextrose (Glutose 15) 37.5 Gm Gel..gram., 37.5 G PO PRN Y for HYPOGLYCEMIA, #1 APPLIC Prov:FAM EPPS MD 06/16/16 Haloperidol (Haloperidol) 0.5 Mg Tablet, 0.5 MG PO Q4HR Y for AGITATION / RESTLESSNESS, #30 TAB Prov:FAM EPPS MD 06/16/16 Escitalopram Oxalate (Lexapro) 10 Mg Tablet, 1 TAB PO DAILY, #30 TAB Prov:DANNY KNOX MD 03/31/16 Reported Medications Lisinopril (Lisinopril) 5 Mg Tablet, 5 MG PO DAILY for HYPERTENSION, TAB 06/16/16 Metformin HCl (Metformin HCl) 500 Mg Tablet, 500 MG PO BIDWM, TAB Take one tablet, by mouth, 2 times a day with Meals. 06/13/16 Timolol Maleate (Timolol Maleate) 5 Ml Drops, 1 DROP RIGHT EYE BID, #5 ML 5 Refills 06/13/16 Glimepiride (Glimepiride) 2 Mg Tablet, 2 MG PO QD 06/13/16 Aspirin (Aspirin) 81 Mg Tablet, 81 MG PO DAILY 12/29/08 Atorvastatin Calcium (Lipitor) 20 Mg Tablet, 10 MG PO QD 12/30/08 Discontinued Reported Medications Insulin Regular, Human (Humulin R) 1 Ml Inj, 0 SQ SS Y for PRN ORDERS, VIAL 06/16/16 Discontinued Scripts Dextrose 50 % in Water (Dextrose 50%-Water Abboject) 50 Ml Syringe, 25 ML IV PRN Y for HYPOGLYCEMIA, #1 SYRINGE Prov:FAM EPPS MD 06/16/16 Face to Face Encounter I met with patient on the day of dismissal and discussed follow up appointments , medications, and safety plan. Discharge Disposition Stable. Patient is discharged home. DANNY KNOX MD Jun 27, 2016 12:36 Procedures Procedure Status Date Provider(s) Routine venipuncture Completed 03/30/16 Insert bladder catheter Completed 03/30/[address] head/brain w/o dye Completed 03/30/16 Comprehen metabolic panel Completed 03/30/16 Urinalysis auto w/scope Completed 03/30/16 Assay of lactic acid Completed 03/30/16 Procalcitonin (pct) Completed 03/30/16 Assay of troponin quant Completed 03/30/16 Complete cbc w/auto diff wbc Completed 03/30/16 Culture aerobic identify Completed 03/30/16 Urine culture/colony count Completed 03/30/16 Microbe susceptible jose Completed 03/30/16 Electrocardiogram tracing Completed 03/30/16 Hydrate iv infusion add-on Completed 03/30/16 Ther/proph/diag iv inf init Completed 03/30/16 Emergency dept visit Completed 03/30/16 [id number]"INJECTION, CEFTRIAXONE SODIUM, PER 250 MG" Completed 03/30/16 [id number]"INFUSION, NORMAL SALINE SOLUTION , 1000 CC" Completed 03/30/16 [id number]"INFUSION, NORMAL SALINE SOLUTION , 250 CC" Completed 03/30/16 Reagent strip/blood glucose Completed 03/31/16 Ther/proph/diag inj sc/im Completed 03/31/16 Emergency dept visit Completed 03/31/16 [id number]"INJECTION, CEFTRIAXONE SODIUM, PER 250 MG" Completed 03/31/16 Encounters Encounter Location Arrival/Admit Date Discharge/Depart Date Attending Provider Discharged Inpatient [facility] 06/16/16 3:25pm 06/27/16 3:48pm DANNY KNOX MD Discharged Inpatient [facility] 06/14/16 11:07am 06/16/16 3:24pm LIVIA BERMEO MD Departed Emergency Room [facility] 03/31/16 1:51pm 03/31/16 4: 25pm DANNY KNOX MD Departed Emergency Room [facility] 03/30/16 6:14pm 03/30/16 9: 59pm SPENSER JAIME MD
--- OUTSIDE RECORDS SUMMARY | 2016-07-17 18:05 | XMS REPORT | Referral Summary ---
Author Author [facility], Family Medicine Organization [facility] Address Unknown Phone Unavailable Care Team Providers Care Public Health Nutritionist Name Role Phone Carlos Vasquez Primary Care Physician [phone] Encounter Date(s): 04/17/16 - 04/17/16 [facility], [address] [place] [id number] Discharge Diagnosis: Mild depression Discharge Diagnosis: Diabetes type 2, controlled Discharge Diagnosis: E-coli UTI Discharge Diagnosis: Mental confusion Discharge Diagnosis: Benign hypertension Discharge Diagnosis: Leg edema Discharge Disposition: 01-Home or Self Care Attending Physician: Shanna Umana APRN Admitting Physician: Shanna Umana APRN Vital Signs Most recent to 1 oldest [Reference Range]: Temperature Tympanic 36 degC [36.6-38.1 degC] *LOW* (04/17/16 10:25 AM) Peripheral Pulse 76 bpm Rate [60-100 bpm] (04/17/16 10:25 AM) Blood Pressure 104/62 mmHg [90-140/60-90 mmHg] (04/17/16 10:25 AM) Problem List Condition Effective Dates Status [...] # 45 tabs, 3 Refill( s), eRx: [id number], TAKE ONE-HALF TABLET BY MOUTH ONCE DAILY Start Date: 12/14/15 Status: Ordered Detrol 1 mg oral tablet 1 mg 1 tabs, Oral, Bedtime (once a day), 2 tabs, # 60 tabs, 0 Refill(s), Pharmacy: [facility] 242, 1 tabs Oral Bedtime (once a day) Start Date: 09/02/14 Status: Ordered Diltiazem Hydrochloride CD 240 mg/24 hours oral capsule, extended release 240 mg 1 caps, Oral, Daily, # 90 caps, 1 Refill(s), Pharmacy: [place] [id number], 1 caps Oral Daily Start Date: 07/07/15 Status: Ordered furosemide 20 mg oral tablet 10 mg 0.5 tabs, Oral, Daily, # 15 tabs, 0 Refill(s), other reason (Rx) Start Date: 04/17/16 Status: Ordered glimepiride 2 mg oral tablet See Instructions, TAKE ONE half TABLET BY MOUTH ONCE DAILY, # 90 tabs, 1 Refill (s), eRx: [id number], TAKE ONE TABLET BY MOUTH ONCE DAILY Start Date: 12/01/15 Status: Ordered Lexapro 10 mg oral tablet 10 mg 1 tabs, Oral, Daily, # 30 tabs, 0 Refill(s) Start Date: 04/03/16 Status: Ordered lisinopril 5 mg oral tablet 5 mg 1 tabs, Oral, Daily, # 90 tabs, 3 Refill(s), Pharmacy: [facility] [id number], 1 tabs Oral Daily Start Date: 04/17/16 Status: Ordered metFORMIN 500 mg oral tablet See Instructions, TAKE TWO TABLETS BY MOUTH TWICE DAILY, # 360 tabs, 1 Refill(s) , eRx: [id number], TAKE TWO TABLETS BY MOUTH TWICE DAILY Start Date: 04/03/16 Status: Ordered Miscellaneous DME DME Item MAY SUBSTITUE: SYRINGE TO INJECT VITAMIN B12 1ML, See Instructions, # 50 Each, 11 Refill(s), Pharmacy: [facility] [id number] SUBSTITUE: SYRINGE TO INJECT VITAMIN B12 1ML, Supply Start Date: 10/30/14 Status: Ordered potassium chloride 10 mEq oral tablet, extended release 10 mEq 1 tabs, Oral, Daily, # 30 tabs, 0 Refill(s), Pharmacy: [id number], 1 tabs Oral Daily Start Date: 04/03/16 Status: Ordered timolol maleate 0.5% ophthalmic solution 1 drops, Eye-Right, Daily, 0 Refill(s) Start Date: 08/04/15 Status: Ordered Results No data available for this section Immunizations Given and Recorded Vaccine Date Status Refusal Reason tetanus/diphth/pertuss (Tdap) adult/adol 01/09/12 Recorded influenza virus vaccine, inactivated 01/26/16 Given influenza virus vaccine, live 02/11/13 Given influenza virus vaccine, live 02/16/12 Given pneumococcal 13-valent conjugate vaccine 07/24/14 Given pneumococcal 23-polyvalent vaccine 12/05/04 Recorded zoster vaccine live 01/09/12 Given Procedures Procedure Date Related Diagnosis Body Site Diabetic foot examination 01/26/16 Arthroscopy of knee 12/30/08 Chondroplasty 12/30/08 Carpal tunnel release Hysterectomy Pars plana vitrectomy Tonsillectomy Social History Social History Type Response Smoking Status Never smoker Assessment and Plan Extracted from: Title: Office Visit Note-zelalem Author: Shanna Umana APRN Date: DM/confusion Assessment/Plan 1.Diabetes type 2, controlled Overall improved control now that she is back on her medications and son is helping her with her dietary choices. Continue to monitor blood sugars for now. Plan follow-up in one month. We'll anticipate decreasingneed for Accu -Cheks. Call with any problems. Ordered: Office Visit Level 4 Est 05449 2.E-coli UTI Clinically improved. Plan follow-up urinalysis in one month to verify resolution. Ordered: Office Visit Level 4 Est 02920 Urinalysis with Culture if Indicated 3.Mental confusion Improved. Back to baseline. She does have some mild memory loss issues. Ordered: Office Visit Level 4 Est 64220 4.Mild depression Mood seems to be improved with Lexapro. Continue same. Ordered: Office Visit Level 4 Est 92966 5.Benign hypertension Overcorrected. Decrease lisinopril to 5 mg a day for renal protection in relation to her diabetes. We'll recheck in one month. Monitor blood pressure at home. Goal is less than 140/90. Ordered: Office Visit Level 4 Est 78251 6.Leg edema Improved now that she is back on her medications. Decrease Lasix to 10 mg a day. I think long-term furosemide will also be beneficial for her history of hyponatremia. Plan to recheck chemistry in one month. If she has any increased swelling and they can let us know. Plan BMP in one month prior to next appointment. Ordered: Message for Lab Metabolic Panel i-STAT Office Visit Level 4 Est 23462
--- OUTSIDE RECORDS SUMMARY | 2016-07-17 18:05 | XMS REPORT | Continuity of Care Document ---
Author Author [facility] Organization [facility] Address Unknown Phone Unavailable Allergies Medications Problems Procedures Code Description Performed By Performed On [facility] Hina NEWMAN, Bo Ferrer 09/23/2012 14.9 OTHER POST SEGMENT OPS 09/23/2012 Results Test Result Range HEMOGLOBIN - 09/23/12 12:49 MEAN CELL VOLUME 80.7 fl 80.0-100.0 HEMOGLOBIN 10.3 gm/dL 12.0-16.0 METABOLIC PANEL, BASIC - 09/23/12 12:49 POTASSIUM 4.7 mmol/L 3.5-5.3 EST GFR (MDRD) 39 mL/min > 59 ANION GAP 11 mmol/L 5-15 EST CrCl (CG) 26 mL/min > 59 GLUCOSE 148 mg/dL 70-99 CALCIUM 9.6 mg/dL 8.5-10.1 BLOOD UREA NITROGEN 23 mg/dL 7-20 CREATININE 1.4 mg/dL 0.6-1.0 SODIUM 132 mmol/L 135-148 CHLORIDE 97 mmol/L 98-110 CARBON DIOXIDE 24 mmol/L 21-32 GLUCOSE (POC) - 09/23/12 12:50 GLUCOSE (POC) 159 mg/dL 70-99 GLUCOSE (POC) - 09/23/12 15:23 GLUCOSE (POC) 157 mg/dL 70-99 Encounters ACCT No. Visit Date/Time Discharge Status Pt. Type Provider Facility Loc./Unit Complaint [id number] 09/23/2012 12:15:00 2012 16:07:00 DIS Outpatient Hina NEWMAN, Bo Ferrer [facility] [place]
--- NOTE | 2016-07-17 18:19 | NUR ---
PROVIDER DR KNOX IN ROOM TO SEE PT
--- NOTE | 2016-07-17 18:20 | NUR ---
Note lathamichelle in EDM - 07/17/16 at 2207 by [email or web address] STATUS PT HAS BEHAVIORS. PT WILL YELL AND CUSS AT STAFF OR ANYONE IN THE [place]. PT ALSO HITS STAFF. PT ALSO PUTS HER HANDS IN HER PANTS/BRIEF. PT WILL ALSO STATE "I WANNA GIVE YOU A KISS"
[2016-07-17] MEDS ORDERED: HALO0.5T PO (18:23)
--- OUTSIDE RECORDS SUMMARY | 2016-07-17 18:23 | XMS REPORT | Continuity of Care Document ---
Author Author [facility] Organization [facility] Address Unknown Phone Unavailable Allergies Medications Problems Procedures Code Description Performed By Performed On 14 [facility] NEC Hina NEWMAN, Bo [...] Status Pt. Type Provider Facility Loc./Unit Complaint [id number] 09/23/2012 12:15:00 2012 16:07:00 DIS Outpatient Hina NEWMAN, Bo Ferrer [facility] [place]
[2016-07-17] MEDS ORDERED: ESCI10TA47 PO (18:27)
[2016-07-17] MEDS ORDERED: NORMAL SALINE 1,000 ML IV ONE (18:28)
--- NOTE | 2016-07-17 18:28 | ERPDOC ---
Departure Disposition Decision Date: Jul 17, 2016 Disposition Decision Time: 22:22 Disposition: 65 TO [facility] [place] [place] [facility] Impression Impression Impression: Primary Impression: Unspecified psychosis Severity: Moderate Condition: Stable Seen By: Physician only Referrals: ELIEL FERGUSON APRN (Family) Problems/Meds/Labs Reviewed?: Yes Medications reviewed and manag: Yes Follow up care ordered?: Yes Mental Status: Alert, Confused HPI - Psychosocial General Chief Complaint: Altered Mental Status Stated Complaint: HALLUCINATIONS Time Seen by MD: 18:02 HPI - Psychosocial Initial Comments 80-year-old female, very pleasantly hallucinating. States she has been having conversations with people that are not there all day. She recognizes this, her son brings her in for. She's not had fever or chills, nor dysuria. Has not fallen or had any head injury. She did have a similar episode 2 weeks ago with bladder infection. No these hallucinations are scary or threatening, she is talking to people that are not there, giving them instructions, asking him to do things for her. When her son pointed this out, she stated that she was talking to them and not to him and she smiles. Allergies: Coded Allergies: aloe (Verified Allergy, Intermediate, HANDS SWELL, 06/13/16) naproxen (Verified Adverse Reaction, Mild, NAUSEA, 06/13/16) Uncoded Allergies: IODINE DYE (Allergy, Intermediate, "BAD" "COULD NOT WAKE UP", 09/06/07) Past History Patient Surgical History Total hysterectomy Tonsillectomy Bilateral carpal tunnel Bilateral total knee Past Medical History Metabolic: diabetes, hypercholesterolemia, hypertension Surgical History Joint: carpal tunnel, knee Vaccines Hx Influenza Vaccination: Yes (March 2016 (per pt. and family)) Hx Pneumococcal Vaccination: Yes (06/15/16) Social History Does patient use chewing tobac: No Second Hand Exposure: No Substance Use Type: does not use Alcohol Intake: none Marital Status: Housing: house Current Occupational Status: retired Record Review Pertinent history updated: Yes Review of Systems General: see HPI Psychiatric Psychiatric: see HPI All other Systems All Other Systems: Reviewed and Negative Physical Exam General General Nourishment: well nourished, well developed, appears stated age, no acute distress Distress Description Pleasantly confused Vitals and Pain First Documented Vital Signs Date Time Temp Pulse Resp B/P Pulse Ox O2 Delivery O2 Flow Rate FiO2 07/17/16 18:00 98.5 97 20 148/67 95 Room Air Weight: Kilograms: Height (feet): 4 Height (inches): 11.00 Triage Pain Scale: Normal Exams: Head: Normocephalic w/o trauma Chest/Resp: Clear all east, with good airflow, and symmetry bilaterally CV: Regular rate and rhythm, without murmur or gallop, Pulses 2+ all extremities, capillary refill, <2 seconds all ext., no pedal edema noted Abdomen: Bowel sounds positive, soft, non-tender, non-distended, no hepatosplenomegaly, masses or bruits noted Neurologic (brief) Neurological Brief: FOUND: CN w/o gross def to obs, motor-no gross deficits, sensory-no gross deficits Psychiatric (brief) Psychiatric Brief: NOT FOUND: oriented Differential Diagnoses Considering: Bipolar, Brain Tumor, Delirium, Dementia, Depression, Hallucinations, Hypoglycemia, Alcohol Intoxication, Janet, Acute Psychosis Progress Results/Orders Orders Procedure Category Date Status Time Ammonia LAB 07/17/16 Complete 18:28 Cmp - Comprehensive LAB 07/17/16 Complete Metabolic 18:28 Cbc W/Auto LAB 07/17/16 Complete Diff-Reflex Manual 18:28 Ethanol LAB 07/17/16 Complete 18:28 Tsh - Thyroid Stim LAB 07/17/16 Complete Hormone 18:28 Troponin I W LAB 07/17/16 Complete Hemolysis Index 18:28 Urine Culture SHERON 07/17/16 In Process 18:28 Drug Screen LAB 07/17/16 Complete Urine-Test [place] [facility] [place] 18:28 Bgm (Ed) EDM 07/17/16 Transmitted 18:28 Chest, Pa & Lateral RAD 07/17/16 Taken 18:28 Ct Head W/O Contrast CT 07/17/16 Taken 18:28 Iv Lock (Ed Only) EDM 07/17/16 Transmitted 18:28 Normal Saline (Normal PHA 07/17/16 Complete Saline Iv) 18:28 Oxygen Administration EDM 07/17/16 Transmitted 18:28 Nothing By Mouth (Ed EDM 07/17/16 Transmitted Only) 18:28 Haloperidol (Haldol) PHA 07/17/16 Complete 18:30 UA, LAB 07/17/16 Complete Dip&Micro(Complete) & 20:08 Asenapine Maleate PHA 07/17/16 Transmitted (Saphris) 22:30 Lab Results Laboratory Tests Test 07/17/16 18:59 07/17/16 20:08 07/17/16 20:47 White Blood Count 10.2T/MM3 Red Blood Count 4.53M/MM3 Hemoglobin 12.5GM/DL Hematocrit 38.6% Mean Corpuscular Volume 85.2UM3 Mean Corpuscular Hemoglobin 27.6UUG Mean Corpuscular Hemoglobin Concent 32.4GM/DL RDW Standard Deviation 46.3FL Platelet Count 276T/MM3 Mean Platelet Volume 9.9UM3 Immature Granulocyte % (Auto) 0.2% Neutrophils (%) (Auto) 56.6% Lymphocytes (%) (Auto) 33.9% Monocytes (%) (Auto) 6.3% Eosinophils (%) (Auto) 2.7% Basophils (%) (Auto) 0.3% Absolute Immature Granulocyte (auto 0.02T/MM3 Absolute Neutrophils (auto) 5.8T/MM3 Absolute Lymphocytes (auto) 3.5T/MM3 Absolute Monocytes (auto) 0.6T/MM3 Absolute Eosinophils (auto) 0.3T/MM3 Absolute Basophils (auto) 0.0T/MM3 Turbidity < 20 Sodium Level 139MEQ/L Potassium Level 4.2MEQ/L Chloride Level 99MEQ/L Carbon Dioxide Level 29MEQ/L Anion Gap 11MEQ/L Blood Urea Nitrogen 16.0MG/DL Creatinine 0.8MG/DL Glomerular Filtration Rate Calc 69 BUN/Creatinine Ratio 20RATIO Glucose Level 93MG/DL Calculated Osmolality 269MOSM/KG Calcium Level 9.9MG/DL Total Bilirubin 0.60MG/DL Icterus Index < 2 Aspartate Amino Transf (AST/SGOT) 23U/L Alanine Aminotransferase (ALT/SGPT) 34U/L Alkaline Phosphatase 71U/L Ammonia < 9UMOL/L Troponin I < 0.012ng/ml Total Protein 8.0G/DL Albumin 4.4G/DL Globulin 3.6G/DL Albumin/Globulin Ratio 1.2RATIO Thyroid Stimulating Hormone (TSH) 2.38MIU/L Chemistry Specimen Hemolysis < 15 Alcohol, Quantitative <10MG/DL Urine Collection Type Voided-not cc-midstr Urine Color Yellow Urine Turbidity Sl cloudy Urine pH 6.0 Urine Specific [place] 1.020 Urine Protein Negative Urine Glucose (UA) Negative Urine Ketones Trace Urine Blood Trace-intact Urine Nitrite Negative Urine Bilirubin Negative Urine Urobilinogen 0.2EU/DL Urine Leukocyte Esterase 2+ Urine RBC 0-1/HPF Urine WBC 3-5/HPF Urine Squamous Epithelial Cells >50 Urine Bacteria 1+ Urine Culture Indicated Cult not indicated Urine Opiates Screen NegativeNG/ML Urine Oxycodone Screen NegativeNG/ML Urine Methadone Screen NegativeNG/ML Urine Propoxyphene Screen NegativeNG/ML Urine Barbiturates Screen NegativeNG/ML Urine Tricyclic Antidepressants NegativeNG/ML Urine Phencyclidine Screen NegativeNG/ML Urine Amphetamines Screen NegativeNG/ML Urine Methamphetamines Screen NegativeNG/ML Urine Benzodiazepines Screen NegativeNG/ML Urine Cocaine Screen NegativeNG/ML Urine Cannabinoids Screen NegativeNG/ML Lab Scanned Report REFERENCE [id number] Medications Current ED Medications Sodium Chloride (Normal Saline IV) 1,000 ml @ 500 mls/hr Q2H ONCE IV Last administered on 07/17/16 19:05; Start 07/17/16 at 18:28; Stop 07/17/16 at 20:27 ; Status DC Haloperidol (Haldol) 0.5 mg O ONCE PO Last administered on 07/17/16 19:50; Start 07/17/16 at 18:30; Stop 07/17/16 at 18:33; Status DC Progress Progress Patient has psychosis of unspecified nature. She has failed outpatient therapy, having been on Haldol scheduled as an outpatient. She continues to have hallucinations. During her visit here, she hallucinated about snowplows, cooking tomato basil soup which she served her son in the room, baby's that were being abandoned and left in the room. She saw people walking around the room, didn't recognize people because of their haircuts, and she saw jones growing in the floor of the radiology department. [facility] will be admitted to [facility]. Her son is DPOA and is going to sign paperwork. She received Haldol 0.5 mg and Saphris 5 mg by mouth, and continued to have hallucinations. TEE KNOX MD Jul 17, 2016 18:28
[2016-07-17] MEDS ORDERED: HALOPERIDOL 0.5 MG TABLET PO ONE (18:30)
--- NOTE | 2016-07-17 18:40 | NUR ---
Note nissa in ED - 07/17/16 at 2207 by [email or web address] STATUS PT MOVED TO [facility] SO SHE WILL BE CLOSER TO THE DESK FOR 1:1. PRIOR TO HER MOVE, PT WAS FOUND IN THE CHAIR IN THE ROOM. PT WAS LEFT ON THE CART. STAFF ASSISTED PT BACK TO THE CART. PT WAS ABLE TO AMBULATE. SAFE WITH 2 TO ASSIST. PT BECOMES 1:1 DUE TO HER BEHAVIORS. YELLING AND SCREAMING, AND CUSSING AT STAFF. PT HITS STAFF.
--- NOTE | 2016-07-17 18:59 | NUR ---
Shala azar in [facility] - 07/17/16 at 2207 by [email or web address] LAB LAB STAFF IN ROOM FOR BLOOD DRAW. PT HIT STAFF, BUT HELD STILL TO GET LAB DRAWN. NURSE IN ROOM TO ASSIST WITH HOLDING PT'S ARM
--- NOTE | 2016-07-17 19:00 | NUR ---
STATUS ASSISTED PT TO COMMODE. PT UNABLE TO URINATE. WHILE ON THE COMMODE, PT HALLUCINATES SHE IS SEEING SOMETHING WET ON THE FLOOR AND PROCEDES TO TELL ME "DONT STEP IN THAT" THERE ISNT ANYTHING WET ON THE FLOOR.
[2016-07-17 19:16] LABS: BASOPHILS % (AUTO) 0.3 % (0-2); EOSINOPHILS # (AUTO) 0.3 T/MM3 (0-0.5); EOSINOPHILS % (AUTO) 2.7 % (0-4); HCT - HEMATOCRIT 38.6 % (36-46); HGB - HEMOGLOBIN 12.5 GM/DL (12-16); IMMATURE GRANULOCYTE # (AUTO) 0.02 T/MM3 (0.00-0.03); IMMATURE GRANULOCYTE % (AUTO) 0.2 % (0.0-0.5); LYMPHOCYTES # (AUTO) 3.5 T/MM3 (1-4.8); LYMPHOCYTES % (AUTO) 33.9 % (23-45); MEAN CORPUSCULAR HGB 27.6 UUG (26-34); MEAN CORPUSCULAR HGB CONC(MCHC 32.4 GM/DL (31-37); MEAN CORPUSCULAR VOLUME 85.2 UM3 (80-100); MEAN PLATELET VOLUME 9.9 UM3 (9.4-12.4); MONOCYTES # (AUTO) 0.6 T/MM3 (0-0.8); MONOCYTES % (AUTO) 6.3 % (0-9.0); NEUTROPHILS #(AUTO)-ABSOLUTE 5.8 T/MM3 (1.8-7.7); NEUTROPHILS % (AUTO) 56.6 % (33-66); RED BLOOD COUNT 4.53 M/MM3 (4.00-5.20); WBC - WHITE BLOOD COUNT 10.2 T/MM3 (4.5-11.0)
[2016-07-17 19:26] LABS: AMMONIA < 9 UMOL/L (9-33)
[2016-07-17 19:28] LABS: ALBUMIN 4.4 G/DL (3.5-5.0); ALBUMIN/GLOBULIN RATIO 1.2 RATIO (1.1-2.2); ALKALINE PHOSPHATASE 71 U/L (38-126); ALT (SGPT) 34 U/L (9-52); ANION GAP 11 MEQ/L (5-15); AST (SGOT) 23 U/L (14-36); BUN/CREATININE RATIO 20 RATIO (6-26); CALCIUM 9.9 MG/DL (8.4-10.2); CHLORIDE 99 MEQ/L (98-107); CO2 - CARBON DIOXIDE 29 MEQ/L (22-30); CREATININE 0.8 MG/DL (0.7-1.2); ETHANOL <10 MG/DL (<10); GLOMERULAR FILTRATION RATE 69; GLUCOSE 93 MG/DL (65-110); POTASSIUM 4.2 MEQ/L (3.6-5); SODIUM 139 MEQ/L (134-144)
--- NOTE | 2016-07-17 20:08 | NUR ---
UA/UDS STAFF ASSISTED PT TO THE COMMODE. PT ABLE TO URINATE. UA/UDS COLLECTED BY BUILDING ATTENDANT
[2016-07-17 20:18] LABS: THYROID STIM HORMONE-TSH 2.38 MIU/L (0.47-4.68)
[2016-07-17 20:22] LABS: BLOOD, URINE TRACE-INTACT (NEGATIVE); COLOR,URINE YELLOW (YELLOW); LEUKOCYTE ESTERASE ,URINE 2+ (NEGATIVE); NITRITE,URINE NEGATIVE (NEGATIVE); UROBILINOGEN,URINE 0.2 EU/DL (NORMAL)
[2016-07-17 20:37] LABS: SQUAMOUS EPITHELIAL CELL,UR >50
[2016-07-17 20:38] LABS: BACTERIA,URINE 1+ (NEGATIVE); RBC,URINE 0-1 /HPF (0-3)
[2016-07-17 20:45] LABS: AMPHETAMINE SCREEN,URINE NEGATIVE; BARBITURATE SCREEN,URINE NEGATIVE; BENZODIAZEPINES SCREEN,URINE NEGATIVE; CANNABINOID SCREEN,URINE NEGATIVE; COCAINE SCREEN,URINE NEGATIVE; METHADONE SCREEN, URINE NEGATIVE; METHAMPHETAMINE SCREEN, URINE NEGATIVE; OPIATE SCREEN,URINE NEGATIVE; PHENCYCLIDINE SCREEN,URINE NEGATIVE; TRICYCLIC ANTIDEPRESSANT,URINE NEGATIVE
--- NOTE | 2016-07-17 20:46 | NUR ---
Note nissa in [facility] - 07/17/16 at [email or web address] PT IS TAKEN TO CT FOT CT HEAD. PT IS COOPERATIVE, BUT DOES HIT STAFF. PT COOPERATES BUT INTERMITTANTLY MOVES HER HEAD DURING CT SCAN. CT SCAN IS COMPLETE.
--- NOTE | 2016-07-17 20:54 | NUR ---
Shala azar in [facility] - 07/17/16 at 2208 by [email or web address] RETURN FROM CT
--- NOTE | 2016-07-17 21:00 | NUR ---
Note lathamichelle in ED - 07/17/16 at 2208 by [email or web address] UA/UDS PT IS STRAIGHT CATH FOR UA/UDS. PT IS INSTRUCTED WHAT WE ARE GOING TO DO, SHE IS COOPERATIVE AND REPORTS SHE UNDERSTANDS. ASSISTANT PROGRAM MANAGER IS HERE TO RECIEVE UA/UDS. PT DOES HIT STAFF DURING PROCEDURE, BUT IS EASILY DISTRACTED. AFTER THE PROCEDURE, PT IS QUIET AND COOPERATIVE. WARM BLANKETS GIVEN TO PT. ROOM LIGHT IS DIMMED TO DECREASE STIMULATION.
--- NOTE | 2016-07-17 21:10 | NUR ---
Note lathamichelle in EDM - 07/17/16 at 2208 by [email or web address] STATUS PT IS RESTING, THEN WAKES UP AND YELLING FRANTIC (SCARED). TALKED TO PT TO LET HER KNOW WHERE SHE IS AT. PT CALMED DOWN AND STOPPED YELLING. PT CLOSES EYES AND GOES BACK TO SLEEP.
--- NOTE | 2016-07-17 21:20 | NUR ---
STATUS DR KNOX IN ROOM TO TALK TO SON AND REVIEW WHAT THE PLAN OF CARE WILL BE.
--- NOTE | 2016-07-17 21:20 | NUR ---
Note lathamichelle in EDM - 07/17/16 at 2208 by [email or web address] STATUS PT IS RESTING WITH HER EYES CLOSED. PT HAS WARM BLANKET ON. PT IS NO LONGER ATTEMPTING TO GET OUT OF BED. NO LONGER REQUIRING 1:1. PT REMAINS CLOSE TO THE DESK TO CONTINUE TO OBSERVE
--- NOTE | 2016-07-17 21:30 | NUR ---
STATUS PT IS RESTLES IN BED. SON REPORTS SHE NEEDS TO URINATE. PT AMBULATES WITH HE WALKER TO THE BATHROOM. PT URINATES. PT AMBULATES BACK TO HERE ROOM WHEN SHE STOPS IN HER TRACKS AND STATES "IM NOT GOING ON THE ELEVATOR" ATTEMPTED TO EXPLAIN TO THE PATIENT WE ARE GOING BACK TO HER ED ROOM. IT TOOK SOME TOME, BUT PT DID WALK BACK INTO HER ROOM. PT REFUSES TO SIT ON CART, BUT RATHER SITS ON CHAIR IN ROOM
[2016-07-17] MEDS ORDERED: ASENAPINE 5mg SUBLINGUAL TAB SL ONE (22:30)
--- NOTE | 2016-07-17 22:30 | NUR ---
STATUS OFELIA, [facility]ATIONS HERE TO SCREEN PT FOR GENERATIONS ADMISSION. REPORT IS GIVEN
--- NOTE | 2016-07-17 22:55 | NUR ---
MED PT IS GIVEN SAPHARIS SL FOR HER INCREASED AGGITATION. SON IN ROOM
--- NOTE | 2016-07-17 23:15 | NUR ---
REPORT JAMI GILBERT FROM [facility] IS GIVEN REPORT. HE WILL CALL WHEN THEY ARE READY FOR PT TO TRANSFER BACK TO GENER[facility]
--- NOTE | 2016-07-17 23:15 | NUR ---
STATUS PT IS PICKING AT HER GOWN. PT IS HALLUCINATING THAT SHE IS SEEING THINGS. ATTEMPTING TO GET PT TUCKED IN BED FOR THE NIGHT. LIGHTS DIMMED. PT STATED" I CANT SLEEP WITH ANIMALS" REMOVED THE INVISIBLE ANIMALS. PT FEELS BETTER AFTER THEY ARE REMOVED
--- NOTE | 2016-07-17 23:30 | NUR ---
STATUS PT IS SLEEPING ON CART AFTER MEDS.
[2016-07-18] VITALS (7 sets, daily range): BP systolic 122–161; BP diastolic 60–86; PULSE 75–112; RESP 12–24; TEMP 97–97.9; O2SAT 96–99; Ht 149.9 cm; Wt 59.5 kg
--- NOTE | 2016-07-18 00:24 | NUR ---
STATUS PT REMAINS SLEEPING ON HER CART. EYES CLOSED. RESP EVEN AND NONLABORED
--- NOTE | 2016-07-18 00:52 | NUR ---
STATUS PT IS AWAKE. CHECKING ON HER, SHE NEEDS TO USE THE BATHROOM. PT USES HER WALKER, BUT SHE HAS TROUBLES MANUEVERING HER WALKER. PT URINATES. BRIEF IS CHANGED. PT AMBULATES BACK TO THE CART. PT IS CONFUSED AND HAS TROUBLES UNDERSTANDING THAT SHE IS STAYING HERE, AND SLEEPING ON CART TIL SHE GETS TRANSFERRED TO GENERATIONS. PT IS STILL SEEING THINGS.
--- NOTE | 2016-07-18 01:10 | NUR ---
TRANSFER TO GENERATIONS PT IS TRANSFERRED TO [facility] VIA W/C WITH HER BELONGINGS, AND ALEKSANDER
--- OUTSIDE RECORDS SUMMARY | 2016-07-18 01:25 | XMS REPORT | Continuity of Care Document ---
Author Author [facility] Organization [facility] Address Unknown Phone Unavailable Allergies Medications Problems Procedures Code Description Performed By Performed On [facility] VITRECTOMY NEC Hina NEWMAN, Bo Ferrer 09/23/2012 [...] Status Pt. Type Provider Facility Loc./Unit Complaint [id number] 09/23/2012 12:15:00 2012 16:07:00 DIS Outpatient Hina NEWMAN, Bo Ferrer [facility] [place]
[2016-07-18] MEDS ORDERED: HALOPERIDOL 0.5 MG TABLET PO PRN (02:00)
[2016-07-18] MEDS ORDERED: PRN ORDERS MC (02:00)
[2016-07-18] MEDS ORDERED: LORAZEPAM 0.5 MG TABLET PO PRN (02:00)
[2016-07-18] MEDS ORDERED: LORAZEPAM 2 MG/ML INJECTION IM PRN (02:00)
[2016-07-18] MEDS ORDERED: HALOPERIDOL 5 MG/ML INJECTION IM PRN (02:00)
--- NOTE | 2016-07-18 03:30 | NUR ---
PRN Pt received PRN Ativan 0.5mg @ 0230 for restlessness. PRN was minimally effective.
--- NOTE | 2016-07-18 05:01 | NUR ---
ADMISSION Pt is an 80 year old female that admitted to the ED from home. She was brought to the ED by her son/ISAK. Pt was transported to the generations unit [place] [facility] [place]. Pt has her own walker and is a x1 stand by assist. Pt is oriented to person only and is to tired to answer any of my questions. Pt was speaking nonsensical and hallucinating when coming onto the unit. she would speak of women in the room that were not there and animals. Pt was cooperative but needs constant queuing. Pt wears glasses and has them on her person. She did not come in with much inventory because she was told they were going to get a hamburger and ended up at the hospital. When asked her reason for being in the hospital the patient states " I don't know and neither do they". Pts son called 3 times through the night to check on his mother and said that he would be in tomorrow with more clothing and to check on her. Addendum: 07/18/16 at 0510 by OFELIA LUNA RN Pt was admitted at 0110.
--- NOTE | 2016-07-18 06:37 | NUR ---
Summary Pt was cooperative with assessment and cares. Pt is pleasantly confused, happy and willing to cooperate. Pt has had visual and auditory hallucinations throughout the night and has been calling out for people in her room. Pt has stated a few times " fix me a bowl of that" she sees people and animals and appears to talk to them as well. Pt has not had any other PRN medications other than what has been previously charted. Pt is in bed resting with side rails up x2 and bed alarm activated.
--- NOTE | 2016-07-18 07:35 | DI ---
LOCATION OF DICTATION: [place] EXAM: CHEST, PA LATERAL HISTORY: ITS.REASON: confusion, dyspnea COMPARISON: No prior studies available for comparison. FINDINGS: The heart size is normal. The mediastinal configuration is unremarkable. There are no consolidating opacities or pleural effusions. There is no evidence for a pneumothorax. The osseous structures are within normal limits for the patient's age. IMPRESSION: No acute cardiopulmonary abnormality is identified. .
--- NOTE | 2016-07-18 07:36 | DI ---
Indication: ITS.REASON: confusion PROCEDURE: CT HEAD W/O CONTRAST: Encounter: Initial Comparison: None Technique: Axial CT images through the head were performed without contrast. Iterative Reconstruction dose reducing techniques was utilized. FINDINGS: The ventricles are of normal size, shape, and contour for the patient's age. Minimal periventricular white matter disease is suggested. The brainstem, cerebellum, and cerebral hemispheres otherwise have a normal morphology and CT attenuation. There is no evidence of midline displacement. No hemorrhage, signs of acute territorial stroke, mass effect, mass lesions, or edema is evident. The visualized portions of the skull base, midface, and calvarium demonstrate no abnormality. The paranasal sinuses are well aerated and free of significant disease. The tympanic and mastoid cavities appear normal. IMPRESSION: No acute intracranial abnormality or hemorrhage. .
[2016-07-18] MEDS: METFORMIN 500 MG TABLET PO SCH ×2 (08:00→17:23)
[2016-07-18] MEDS: GLIMEPIRIDE 2 MG TABLET PO SCH ×2 (08:00→15:38)
--- NOTE | 2016-07-18 09:44 | NUR ---
ADMISSION SMOKING STATUS Pt has not smoked in last 30 days. RT consult not needed.
--- NOTE | 2016-07-18 09:45 | NUR ---
ALCOHOL AUDIT Pt scored 0 on audit. Placed in chart.
--- NOTE | 2016-07-18 10:43 | HPPDOC ---
FRANK BAZAN MANAGER NIGHT 07/18/16 0920: HPI - Adult Date DATE: 07/18/16 TIME: 09:20 General Chief Complaint: hallucinations History of Present Illness Suzette is an 80-year-old female who was admitted to [facility] on 06/13/2016 with acute encephalopathic changes most notably with visual hallucinations. She was diagnosed with urinary tract infection biology showed greater than 100,000 colony-forming units of gram-positive neeta. Ultimately she was sent to the inpatient rehabilitation unit for 11 days and discharged with the right on track program. Documents from this hospitalization and the right on track program nurse practitioners notes show patient was doing fairly well up until the last couple of days when she seemed to take a turn for the worse. Ultimately patient was found to be having hallucinations again and conversations with people that were not present. Her son Rehan who is [employer] had patient brought to the [facility] emergency room for repeat evaluation secondary to this change in status. Patient was medically screened in the emergency room and admitted to the [facility] unit on 07/18 under the care of Dr. Thomas. At the time of this initial hospitalist evaluation, patient is seen in her room on the [facility] unit. She is sleeping the wrong direction in bed and nurses state that apparently is her preference. She awakens and acknowledges examiner's presence, however was given Haldol and Saphris in the emergency department overnight and subsequently is a bit sedate. Past Medical History Past Medical History Patient's Medical History: (1) Mild dementia (2) Depression (3) Dyslipidemia (4) Type II diabetes mellitus (5) Hypertension (6) Vertigo (7) Osteoarthritis Surgical History Patient's Surgical History: Total hysterectomy Tonsillectomy Bilateral carpal tunnel Bilateral total knee Laser eye surgery Current Medications Home Meds Active Scripts Dextrose (Glutose 15) 37.5 Gm Gel..gram., 37.5 G PO PRN Y for HYPOGLYCEMIA, #1 APPLIC Prov:FAM EPPS MD 06/16/16 Reported Medications Escitalopram Oxalate (Escitalopram Oxalate) 10 Mg Tablet, 10 MG PO DAILY 07/17/16 Haloperidol (Haloperidol) 0.5 Mg Tablet, 0.5 MG PO BID 07/17/16 Lisinopril (Lisinopril) 5 Mg Tablet, 5 MG PO DAILY 06/16/16 Metformin HCl (Metformin HCl) 500 Mg Tablet, 500 MG PO BIDWM 06/13/16 Timolol Maleate (Timolol Maleate) 5 Ml Drops, 1 DROP RIGHT EYE BID 06/13/16 Glimepiride (Glimepiride) 2 Mg Tablet, 2 MG PO DAILY 06/13/16 Aspirin (Aspirin) 81 Mg Tablet, 81 MG PO DAILY 12/29/08 Atorvastatin Calcium (Lipitor) 20 Mg Tablet, 10 MG PO DAILY 12/30/08 Allergies: Coded Allergies: aloe (Verified Allergy, Intermediate, HANDS SWELL, 06/13/16) naproxen (Verified Adverse Reaction, Mild, NAUSEA, 06/13/16) Uncoded Allergies: IODINE DYE (Allergy, Intermediate, "BAD" "COULD NOT WAKE UP", 09/06/07) Family History Family History: No family history of mental illness Patient's mother did have some type of dementia with visual hallucinations. Social History Smoking Status: Never smoker Does patient use chewing tobac: No Second Hand Exposure: No Substance Use Type: does not use Alcohol Intake: none Marital Status: Housing: house Household Members: none Current Occupational Status: retired Advance Directives: Yes DPOA for Healthcare Only Review of Systems Unable to Obtain ROS Due to: clinical condition Psychiatric Psychiatric: hallucinations, memory impairment All Other Systems All Other Systems: Reviewed (remainder of 10-point ROS Neg.) Physical Exam General General Nourishment: well nourished, well developed General Body Habitus: well groomed Vital Signs Vital Signs Date Time Temp Pulse Resp B/P Pulse Ox O2 Delivery O2 Flow Rate FiO2 07/18/16 02:07 97.6 112 16 161/86 96 Room Air Height (Feet): 4 Height (Inches): 11.00 Eyes Brief: FOUND: PERRL, NOT FOUND: scleral icterus ENMT Brief: FOUND: hearing intact, mucosa moist Neck Brief: FOUND: midline Respiratory Brief: FOUND: clear all east, equal bilaterally Cardiovascular (brief) Cardiac Brief: FOUND: regular rate, regular rhythm Abdomen (brief) Abdominal Brief: FOUND: BS normo active x4, soft, NOT FOUND: distended, tender Integumentary (brief) Integumentary Brief: FOUND: dry, pink, warm Neurologic (brief) Comments Unable to assess secondary to mental status. Neurologic RN Documented GCS Eye Opening: (4)Spontaneous Verbal: (4)Confused Motor: (6)Obeys Commands Total: Psychiatric (brief) Comments Awakens to verbal stimuli Laboratory Laboratory Tests Test 07/17/16 18:59 07/17/16 20:08 07/17/16 20:47 07/18/16 09:02 White Blood Count 10.2T/MM3 Red Blood Count 4.53M/MM3 Hemoglobin 12.5GM/DL Hematocrit 38.6% Mean Corpuscular Volume 85.2UM3 Mean Corpuscular Hemoglobin 27.6UUG Mean Corpuscular Hemoglobin Concent 32.4GM/DL RDW Standard Deviation 46.3FL Platelet Count 276T/MM3 Mean Platelet Volume 9.9UM3 Immature Granulocyte % (Auto) 0.2% Neutrophils (%) (Auto) 56.6% Lymphocytes (%) (Auto) 33.9% Monocytes (%) (Auto) 6.3% Eosinophils (%) (Auto) 2.7% Basophils (%) (Auto) 0.3% Absolute Immature Granulocyte (auto 0.02T/MM3 Absolute Neutrophils (auto) 5.8T/MM3 Absolute Lymphocytes (auto) 3.5T/MM3 Absolute Monocytes (auto) 0.6T/MM3 Absolute Eosinophils (auto) 0.3T/MM3 Absolute Basophils (auto) 0.0T/MM3 Turbidity < 20 Sodium Level 139MEQ/L Potassium Level 4.2MEQ/L Chloride Level 99MEQ/L Carbon Dioxide Level 29MEQ/L Anion Gap 11MEQ/L Blood Urea Nitrogen 16.0MG/DL Creatinine 0.8MG/DL Glomerular Filtration Rate Calc 69 BUN/Creatinine Ratio 20RATIO Glucose Level 93MG/DL Calculated Osmolality 269MOSM/KG Calcium Level 9.9MG/DL Total Bilirubin 0.60MG/DL Icterus Index < 2 Aspartate Amino Transf (AST/SGOT) 23U/L Alanine Aminotransferase (ALT/SGPT) 34U/L Alkaline Phosphatase 71U/L Ammonia < 9UMOL/L Troponin I < 0.012ng/ml Total Protein 8.0G/DL Albumin 4.4G/DL Globulin 3.6G/DL Albumin/Globulin Ratio 1.2RATIO Thyroid Stimulating Hormone (TSH) 2.38MIU/L Chemistry Specimen Hemolysis < 15 Alcohol, Quantitative <10MG/DL Urine Collection Type Voided-not cc-midstr Urine Color Yellow Urine Turbidity Sl cloudy Urine pH 6.0 Urine Specific Mobile 1.020 Urine Protein Negative Urine Glucose (UA) Negative Urine Ketones Trace Urine Blood Trace-intact Urine Nitrite Negative Urine Bilirubin Negative Urine Urobilinogen 0.2EU/DL Urine Leukocyte Esterase 2+ Urine RBC 0-1/HPF Urine WBC 3-5/HPF Urine Squamous Epithelial Cells >50 Urine Bacteria 1+ Urine Culture Indicated Cult not indicated Urine Opiates Screen NegativeNG/ML Urine Oxycodone Screen NegativeNG/ML Urine Methadone Screen NegativeNG/ML Urine Propoxyphene Screen NegativeNG/ML Urine Barbiturates Screen NegativeNG/ML Urine Tricyclic Antidepressants NegativeNG/ML Urine Phencyclidine Screen NegativeNG/ML Urine Amphetamines Screen NegativeNG/ML Urine Methamphetamines Screen NegativeNG/ML Urine Benzodiazepines Screen NegativeNG/ML Urine Cocaine Screen NegativeNG/ML Urine Cannabinoids Screen NegativeNG/ML Lab Scanned Report REFERENCE [id number] Hemoglobin A1c 7.0% Sepsis Diagnostic Criteria Sepsis Confirmed/Suspected Infection: No Assessment & Plan Problems: (1) Unspecified psychosis Status: Acute (2) Hypertension Status: Chronic (3) Type II diabetes mellitus Status: Chronic (4) Dyslipidemia Status: Chronic (5) Mild dementia Status: Chronic (6) Depression Status: Chronic Plan/Intensity of Service 07/18 Diabetes-fasting and at bedtime monitoring, 2200-calorie carb consistent diet. Patient takes Glucophage 500 mg twice daily and Amaryl. These will be continued and modified as necessary. ER labwork showed a GFR of 69 with a creatinine of 0.8. Kidney function seems fairly well preserved with patient's history of diabetes. Monitor on an as-needed basis. Hemoglobin A1c was 7% on admission. Patient was recently admitted with UTI and encephalopathy. Micro-grew out gram- positive neeta. Patient was treated with antibiotics. Urinalysis in the ER overnight showed 2+ leukocytes, 1+ bacteria however with greater than 50 epithelial cells. Afebrile. No white count. A culture apparently was sent and is pending. Holding on any anti-microbial therapy currently. Comprehensive medical screening workup obtained in the emergency room. CT of the head was negative, chest x-ray was negative, CBC and BMP normal. TSH 2.38. Lipid panel remains pending. Folate and B-12 remain pending. Psychiatry to help with visual hallucinations evaluation and management. Code Status Full Code, unverified Hospital Course Summary Disclaimer The hospital course summary below is not to be considered part of the above Progress Note. Hospital Course Summary 07/18 Diabetes-fasting and at bedtime monitoring, 2200-calorie carb consistent diet. Patient takes Glucophage 500 mg twice daily and Amaryl. These will be continued and modified as necessary. ER labwork showed a GFR of 69 with a creatinine of 0.8. Kidney function seems fairly well preserved with patient's history of diabetes. Monitor on an as-needed basis. Hemoglobin A1c was 7% on admission. Patient was recently admitted with UTI and encephalopathy. Micro-grew out gram- positive neeta. Patient was treated with antibiotics. Urinalysis in the ER overnight showed 2+ leukocytes, 1+ bacteria however with greater than 50 epithelial cells. Afebrile. No white count. A culture apparently was sent and is pending. Holding on any anti-microbial therapy currently. Comprehensive medical screening workup obtained in the emergency room. CT of the head was negative, chest x-ray was negative, CBC and BMP normal. TSH 2.38. Lipid panel remains pending. Folate and B-12 remain pending. Psychiatry to help with visual hallucinations evaluation and management. CESAR FIERRO MD 07/18/161913: Past Medical History Current Medications Home Meds Active Scripts Dextrose (Glutose 15) 37.5 Gm Gel..gram., 37.5 G PO PRN Y for HYPOGLYCEMIA, #1 APPLIC Prov:FAM EPPS MD 06/16/16 Reported Medications Escitalopram Oxalate (Escitalopram Oxalate) 10 Mg Tablet, 10 MG PO DAILY 07/17/16 Haloperidol (Haloperidol) 0.5 Mg Tablet, 0.5 MG PO BID 07/17/16 Lisinopril (Lisinopril) 5 Mg Tablet, 5 MG PO DAILY 06/16/16 Metformin HCl (Metformin HCl) 500 Mg Tablet, 500 MG PO BIDWM 06/13/16 Timolol Maleate (Timolol Maleate) 5 Ml Drops, 1 DROP RIGHT EYE BID 06/13/16 Glimepiride (Glimepiride) 2 Mg Tablet, 2 MG PO DAILY 06/13/16 Aspirin (Aspirin) 81 Mg Tablet, 81 MG PO DAILY 12/29/08 Atorvastatin Calcium (Lipitor) 20 Mg Tablet, 10 MG PO DAILY 12/30/08 Allergies: Coded Allergies: aloe (Verified Allergy, Intermediate, HANDS SWELL, 06/13/16) naproxen (Verified Adverse Reaction, Mild, NAUSEA, 06/13/16) Uncoded Allergies: IODINE DYE (Allergy, Intermediate, "BAD" "COULD NOT WAKE UP", 09/06/07) Assessment & Plan Assessment I have independently evaluated and examined this patient. I reviewed the chart, the patient's history, and the MANAGER NIGHT's documented findings as above. We discussed and formulated the assessment and plan as above with additions as below: Mrs. Robles was seen in the day room. She voiced no complaints noting that problems tend to only last a day or 2 anyway and then go away so they really aren't worse talking about. She was able to tell me who her primary care provider is and associated physician. She denied pain, dyspnea, nausea, or dizziness. She reports a history of eye surgery resulting in right ptosis. Patient was alert and cooperative on examination. There is right ptosis and deformity of the right pupil. The left pupil is round and reacts to light, gaze is conjugate ocular muscles intact. Cardiac rhythm was regular with normal heart tones. Breath sounds are clear. Patient is moving all extremities well and power is grossly intact 4 extremities. Sensation was intact to light touch 4. No tremors were present and motor tone is normal. Laboratory data reviewed, urinalysis unremarkable. Chest x-ray reviewed by myself and is unremarkable. CT head without acute pathology. Medically stable at this time, continue usual home medications including aspirin. Will follow with you. FRANK BAZAN APRN Jul 18, 2016 09:20 CESAR FIERRO MD Jul 18, 2016 19:14
--- NOTE | 2016-07-18 12:07 | NUR ---
Sedated Pt remains sedated from IM injections in ER. Pt able to state name and when asked. Pt responds to verbal and touch appropriate but then falls right back asleep. Pt checked for incontinence and was dry this morning. Unable to awake for breakfast or morning medications. Blood glucose this AM was 155. Will continue to monitor. Call light in reach. Bed alarm on.
[2016-07-18] MEDS: HALOPERIDOL 0.5 MG TABLET PO SCH ×3 (12:10→20:20)
[2016-07-18] MEDS: LISINOPRIL 5 MG TABLET PO SCH (12:11)
[2016-07-18] MEDS: TIMOLOL 0.5% EYE DROPS 5ml RIGHT EYE SCH ×2 (12:11→20:21)
[2016-07-18] MEDS: ESCITALOPRAM 10 MG TABLET PO SCH (12:11)
--- NOTE | 2016-07-18 14:34 | NUR ---
CM CM SPOKE WITH PT DAUGHTER FAM AND SHE HAS CM CONTACT INFORMATION AND IS AWARE OF CM ROLE. DAUGHTER PROVIDED CM WITH LIST OF NURSING FACILITIES SHE WOULD LIKE REFERRAL MADE TO WHEN APPROPRIATE. FAM IS AWARE TO CONTACT CM IF NEEDS ARISE.
[2016-07-18] MEDS: NYSTATIN POWDER 15gm BOTTLE TOP SCH ×2 (15:39→20:21)
--- NOTE | 2016-07-18 18:58 | NUR ---
Summary: Pt slept 7.0 hours Pt is A/O to self and and place only. Pt has had hallucinations, seeing people behind me and states, "where did she go? that girl behind you?" Pt's family here, son and other woman: educated and discussed plan of care. Pt "firing" her son and mad at him. Pt in no acute distress. Pt ambulates with steady gait with walker and assist x 1. Pt denies pain and denies pain upon urination, but UA shows need for culture. Pt slept most of the day due to previous sedation medication. Pt hasn't been physically aggressive but verbally aggressive with family. Pt is cooperative. Pt given AM meds of haldol and amaryl when she woke up at 1315. Will continue to monitor. Call light in reach.
[2016-07-18] MEDS: ATORVASTATIN 10 MG TABLET PO SCH (20:20)
--- NOTE | 2016-07-18 21:09 | GENHPPDOC ---
[facility] 07/18/16 Start Time: 16:40 Stop Time: 17:30 >50% of this visit spent in counseling/coordination care. History of Present Illness Patient is a retired, 80-year-old female admitted to [facility] on 07/17/16 from the [facility] after being brought by her family due to new-onset increased confusion and hallucinations, which continued in the ED. Patient has been living in the community with her son, who moved in with her a couple of months ago due to her difficulty completing ADLs. Patient did have similar symptoms 2 weeks go with a bladder infection but not found to have a UTI upon admission. She was also started on Haldol 0.5mg PO BID at that time and has reportedly been adherent with this medication. Per family, she has been talking to people who are not there, asking things to do things for her, etc. Patients son reported that she has been sleeping 4-5 hours per night though she will get up 4-5 times/night to use the restroom. He has denied any observed change in appetite. Patient was not observed responding to internal stimuli during our interview but was reportedly doing so in the ED upon admission. Upon interview, patient is sitting calmly in dayroom alongside peers. She is pleasant and cooperative with me. She is oriented to self and situation, stating that she is here because her kids think she has too many imaginary friends. When she tells them about something she has seen, they tell her there is nothing there. This has been frustrating for her as she feels that they do not believe her. She reports that her mood is happy other than related to this situation, but then endorses occasional morbid thoughts about not wanting to be here anymore. When I clarified what she meant by this, she stated in this situation with her VH and children not in the hospital. She denies active SI and endorses her sadie as a protective factor. She denies any history of AH (though observed having conversations with people who were not there) or HI. Patient denies any history of depression previously. She does endorse worrying occasionally about how she will get to doctors appointments since giving up driving. She denies any change in sleep or appetite, but reports daytime fatigue. She reports enjoying visiting with her grandchildren though some of them are in their 20s now and she does not get to see them as often. Past psychiatric history: Patient denies any history of past psychiatric care, depression, suicide attempts or psychiatric hospitalizations. Depression: decreased energy, sleep disturbance (due to urinary symptoms per son), morbid thinking Psychosis: auditory, visual Dementia: memory impairment Anxiety: worries (seem to be mild) Past Medical History Past Medical History Patient's Medical History: (1) Mild dementia (2) Depression (3) Dyslipidemia (4) Type II diabetes mellitus (5) Hypertension (6) Vertigo (7) Osteoarthritis Surgical History Patient's Surgical History: Total hysterectomy Tonsillectomy Bilateral carpal tunnel Bilateral total knee Laser eye surgery Current Medications Home Meds Active Scripts Dextrose (Glutose 15) 37.5 Gm Gel..gram., 37.5 G PO PRN Y for HYPOGLYCEMIA, #1 APPLIC Prov:FAM EPPS MD 06/16/16 Reported Medications Escitalopram Oxalate (Escitalopram Oxalate) 10 Mg Tablet, 10 MG PO DAILY 07/17/16 Haloperidol (Haloperidol) 0.5 Mg Tablet, 0.5 MG PO BID 07/17/16 Lisinopril (Lisinopril) 5 Mg Tablet, 5 MG PO DAILY 06/16/16 Metformin HCl (Metformin HCl) 500 Mg Tablet, 500 MG PO BIDWM 06/13/16 Timolol Maleate (Timolol Maleate) 5 Ml Drops, 1 DROP RIGHT EYE BID 06/13/16 Glimepiride (Glimepiride) 2 Mg Tablet, 2 MG PO DAILY 06/13/16 Aspirin (Aspirin) 81 Mg Tablet, 81 MG PO DAILY 12/29/08 Atorvastatin Calcium (Lipitor) 20 Mg Tablet, 10 MG PO DAILY 12/30/08 Allergies: Coded Allergies: aloe (Verified Allergy, Intermediate, HANDS SWELL, 06/13/16) naproxen (Verified Adverse Reaction, Mild, NAUSEA, 06/13/16) Uncoded Allergies: IODINE DYE (Allergy, Intermediate, "BAD" "COULD NOT WAKE UP", 09/06/07) Family History Family History: No family history of mental illness Patient's mother did have some type of dementia with visual hallucinations. Vaccines 03/201606/15/2016 06/15/16 Social History Smoking Status: Never smoker Does patient use chewing tobac: No Second Hand Exposure: No Substance Use Type: does not use Alcohol Intake: none Marital Status: Housing: house Household Members: children (son) Current Occupational Status: retired Grade (if student): High school graduate Advance Directives: Yes DPOA for Healthcare Only Review of Systems Unable to Obtain Comments Limited due to dementia Constitutional: REPORTS: fatigue, insomnia (sleeps 4-5 hours per night with waking up 4-5 times to use restroom per son), DENIES: appetite decrease, appetite increase, chills, fever Eyes General: REPORTS: other (poor vision, worse in R side, chronic), DENIES: burning, dryness, erythema, exudate, foreign body sensation, itching, pain, photophobia, see HPI, subconjunctival bleed, watering ENMT Ears: DENIES: drainage, erythema, foreign body, other, pain, see HPI Cardiovascular DENIES: chest pain, dyspnea on exertion, hx of rheumatic fever, murmur, orthopnea, other, paroxysmal nocturnal dysp, see HPI Pulmonary Respiratory: DENIES: cough, dyspnea, exposure to TB, hyperventilation, other, pleuritic chest pain, pneumonia hx, see HPI, sputum, tachypnea GI Upper Abdomen: DENIES: abdominal swelling, dysphagia, food intolerances, heartburn/indigestion, hematemesis, nausea, other, pain, see HPI, vomiting Lower Abdomen: DENIES: blood in stool, fady-colored stools, constipation, diarrhea, melena, other, pain, painful BM, see HPI General: frequency, DENIES: burning, urgency Musculoskeletal General: DENIES: atrophy of muscles, cramps, edema, joint pain, joint swelling , other, pain, see HPI, spasm, tenderness, weakness Integumentary Skin: DENIES: color change, infections, itching, lesion, mole, other, rash, see HPI, sores, tumor, ulcers Neurological General: memory disturbances, DENIES: aphasia, ataxia, blackouts, blindness, change in strength, dysarthria, dysesthesia, fainting, headache, numbness, other , paralysis/paresis, poor coordination, see HPI, seizures, syncope, tics, tingling, tremor, vertigo, weakness Psychiatric Psychiatric: hallucinations, memory impairment Endocrine DENIES: heat/cold intolerance, other, polydipsia, polyphagia, see HPI Hematologic/Lymphatic DENIES: anemia, bleeding gums, easy bruising, frequent nosebleeds, lymphadenopathy, other, see HPI Allergic/Immunological DENIES: allergic reactions, frequent infections, hives, other, see HPI, sneezing All Other Systems All Other Systems: Reviewed (remainder of 10-point ROS Neg.) Generations Exam Vitals Vital Signs Date Time Temp Pulse Resp B/P Pulse Ox O2 Delivery O2 Flow Rate FiO2 07/18/16 09:40 96 12 07/18/16 09:38 97.0 160/81 98 Room Air Physical examination performed by the hospitalist. Height (Feet): 4 Height (Inches): 11.00 Mental Status Exam Muscle Strength/Tone: Normal Dressing: Casual Grooming: Fair Attitude: Cooperative Motor Activity: Retardation Eye Contact: Fair Speech: Normal Volume: Soft Rhythm: Appropriate Rhythm Sensory: Alert Orientation: Disoriented to time, Disoriented to place, Oriented to person Mood: Other ("happy") Affect: Incongruent (with stated mood - appears restricted) Rate of Thoughts: Delayed Thought Organization: Organized, Confused (at times) Associations: Intact Abstract Reasoning: Poor abstract reasoning Thought Content: Ruminations Perception/Psychotic: Psychotic Current Hallucinations: Visual, Auditory (denies though reportedly has conversations with people who are not there) Attention Span/Concentration: Other (Decreased from baseline) Language: Naming Intact Fund of Knowledge: Other (Decreased from baseline) Memory: Poor-recent Suicidal Ideation: Denies Homicidal Ideation: Denies Insight: Limited Judgment: Limited Impulse Control: Fair Laboratory Tests Test 07/17/16 18:59 07/17/16 20:08 07/17/16 20:47 07/18/16 09:02 White Blood Count 10.2T/MM3 Red Blood Count 4.53M/MM3 Hemoglobin 12.5GM/DL Hematocrit 38.6% Mean Corpuscular Volume 85.2UM3 Mean Corpuscular Hemoglobin 27.6UUG Mean Corpuscular Hemoglobin Concent 32.4GM/DL RDW Standard Deviation 46.3FL Platelet Count 276T/MM3 Mean Platelet Volume 9.9UM3 Immature Granulocyte % (Auto) 0.2% Neutrophils (%) (Auto) 56.6% Lymphocytes (%) (Auto) 33.9% Monocytes (%) (Auto) 6.3% Eosinophils (%) (Auto) 2.7% Basophils (%) (Auto) 0.3% Absolute Immature Granulocyte (auto 0.02T/MM3 Absolute Neutrophils (auto) 5.8T/MM3 Absolute Lymphocytes (auto) 3.5T/MM3 Absolute Monocytes (auto) 0.6T/MM3 Absolute Eosinophils (auto) 0.3T/MM3 Absolute Basophils (auto) 0.0T/MM3 Turbidity < 20 Sodium Level 139MEQ/L Potassium Level 4.2MEQ/L Chloride Level 99MEQ/L Carbon Dioxide Level 29MEQ/L Anion Gap 11MEQ/L Blood Urea Nitrogen 16.0MG/DL Creatinine 0.8MG/DL Glomerular Filtration Rate Calc 69 BUN/Creatinine Ratio 20RATIO Glucose Level 93MG/DL Calculated Osmolality 269MOSM/KG Calcium Level 9.9MG/DL Total Bilirubin 0.60MG/DL Icterus Index < 2 Aspartate Amino Transf (AST/SGOT) 23U/L Alanine Aminotransferase (ALT/SGPT) 34U/L Alkaline Phosphatase 71U/L Ammonia < 9UMOL/L Troponin I < 0.012ng/ml Total Protein 8.0G/DL Albumin 4.4G/DL Globulin 3.6G/DL Albumin/Globulin Ratio 1.2RATIO Thyroid Stimulating Hormone (TSH) 2.38MIU/L Chemistry Specimen Hemolysis < 15 Alcohol, Quantitative <10MG/DL Urine Collection Type Voided-not cc-midstr Urine Color Yellow Urine Turbidity Sl cloudy Urine pH 6.0 Urine Specific Mitchell 1.020 Urine Protein Negative Urine Glucose (UA) Negative Urine Ketones Trace Urine Blood Trace-intact Urine Nitrite Negative Urine Bilirubin Negative Urine Urobilinogen 0.2EU/DL Urine Leukocyte Esterase 2+ Urine RBC 0-1/HPF Urine WBC 3-5/HPF Urine Squamous Epithelial Cells >50 Urine Bacteria 1+ Urine Culture Indicated Cult not indicated Urine Opiates Screen NegativeNG/ML Urine Oxycodone Screen NegativeNG/ML Urine Methadone Screen NegativeNG/ML Urine Propoxyphene Screen NegativeNG/ML Urine Barbiturates Screen NegativeNG/ML Urine Tricyclic Antidepressants NegativeNG/ML Urine Phencyclidine Screen NegativeNG/ML Urine Amphetamines Screen NegativeNG/ML Urine Methamphetamines Screen NegativeNG/ML Urine Benzodiazepines Screen NegativeNG/ML Urine Cocaine Screen NegativeNG/ML Urine Cannabinoids Screen NegativeNG/ML Lab Scanned Report REFERENCE [id number] Hemoglobin A1c 7.0% Triglycerides Level Pending Cholesterol Level Pending LDL Cholesterol, Calculated Pending VLDL Cholesterol Pending HDL Cholesterol Direct Pending Cholesterol/HDL Ratio Pending Vitamin B12 Level Pending Folate Pending Test 3/14/17 09:49 Glucometer 155mg/dL Assessment and Plan (1) Unspecified psychosis (2) Depression Assessment: suspected (3) Neurocognitive disorder Assessment: unspecified (4) Type II diabetes mellitus (5) Dyslipidemia (6) Hypertension (7) Osteoarthritis Evaluate and stabilize. Review labs, medication list and order additional labwork if needed. Maintain safety precautions. Monitor patient's mood, behavior and response to treatment. MARIANA CHEUNG MD Jul 18, 2016 16:16
--- NOTE | 2016-07-18 22:33 | NUR ---
SHIFT SUMMARY PATIENT WAS SITTING IN THE DAYROOM UPON BEGINNING OF SHIFT. SHE WAS SITTING QUIETLY EATING ICE CREAM. SHE THEN MOVED CLOSE TO THE WINDOW AND WATCHED THE SUN SET. SHE WAS ALERT AND ORIENTED X2. SHE WAS COOPERATIVE AND PLEASANT WITH STAFF. SHE TOOK ALL HER NIGHT MEDICATIONS WHOLE AND WITHOUT A PROBLEM. SHE DID NOT DEMONSTRATE ANY AGGRESSIVE BEHAVIORS OR HALLUCINATIONS. NO PRN'S GIVEN OF NOW. SHE WAS COOPERATIVE WITH CARES AND ONLY REQUIRED ASSISTANCE. SHE AMBULATES WELL WITH A WALKER. SHE REMAINED IN BED WITH BED RAILS UP X2 AND BED ALARM ON.
--- NOTE | 2016-07-18 23:15 | NUR ---
Chart Check 24 hour chart check completed
--- NOTE | 2016-07-19 00:09 | NUR ---
status pt. sleeping at this time. Bed alarm on. No distress noted.
[2016-07-19 02:41] LABS: FOLATE 19.3 NG/ML (2.76-20); VITAMIN B12 - BATCH > 1000 PG/ML (239-931)
--- NOTE | 2016-07-19 05:21 | NUR ---
Summary Pt. up to bathroom with assist of one and back to bed during night. Sleeping at this time.
--- NOTE | 2016-07-19 06:26 | NUR ---
Summary Pt. slept 8rhs.
[2016-07-19 09:43] VITALS: BP 144/69; PULSE 113; RESP 16; TEMP 97.1; O2SAT 97
[2016-07-19] MEDS: ESCITALOPRAM 10 MG TABLET PO SCH (09:44)
[2016-07-19] MEDS: HALOPERIDOL 0.5 MG TABLET PO SCH (09:45)
[2016-07-19] MEDS: GLIMEPIRIDE 2 MG TABLET PO SCH (09:45)
[2016-07-19] MEDS: LISINOPRIL 5 MG TABLET PO SCH (09:45)
[2016-07-19] MEDS: TIMOLOL 0.5% EYE DROPS 5ml RIGHT EYE SCH ×2 (09:46→19:47)
[2016-07-19] MEDS: NYSTATIN POWDER 15gm BOTTLE TOP SCH ×2 (09:46→19:47)
[2016-07-19] MEDS: METFORMIN 500 MG TABLET PO SCH ×2 (09:46→17:42)
[2016-07-19] MEDS: ASPIRIN 81 MG CHEWABLE TABLET PO SCH (09:48)
--- NOTE | 2016-07-19 10:00 | NUR ---
status pt alert and oriented x2. pleasant and cooperative. takes medication with no issues. eats well transfers with assist of 1.
[2016-07-19 16:10] VITALS: BP 132/65; PULSE 94; RESP 20; TEMP 98; O2SAT 98
--- NOTE | 2016-07-19 17:55 | NUR ---
summary pt alert and oriented. pleasant all shift. able to make needs known. participates in activities. pt socialized with another female pt this afternoon. has had no delusions this shift. slept 3.5 hrs this shift.
[2016-07-19] MEDS: ATORVASTATIN 10 MG TABLET PO SCH (19:46)
[2016-07-19] MEDS: HALOPERIDOL 1 MG TABLET PO SCH (19:53)
[2016-07-19 20:00] VITALS: BP 119/57; PULSE 118; RESP 20; TEMP 98; O2SAT 97
--- NOTE | 2016-07-19 20:00 | NUR ---
Status Pt awake and alert in room at beginning of shift. Denies any anxiety or hallucinations. When given her HS meds, she asked "Are they changing my medications?" Explained to patient that the doctor was changing her medications so that she was not seeing things that were not there. Pt states "okay" and takes medications whole without incident. Pt is pleasant this evening and compliant with cares. Pt is able to ambulate to BR with SBA and walker. Pt only complaints is that her pants are "too tight and I cannot pull them all the way up after going to the bathroom". Pt voices concerns over "having to go without shoes to breakfast", showed patient that her family had provided her shoes and she expressed relief. VSS and HS blood sugar is noted to be 156. Assisted patient with getting ready for bed and pt expressed concerns over dry skin, lotion provided and pt expressed no further concerns to staff at that time. Pt does not have any aggression and preferred to stay in room to keep away from another aggressive patient. Addendum: 07/19/16 at 2137 by CHRISTOPHER HONG RN No PRN medications given.
--- NOTE | 2016-07-19 21:52 | GENPN ---
[facility] Subjective Date DATE: 07/19/16 TIME: 15:12 Subjective/Severity of Illness Medications Current Medications Medications (Trade) Dose Ordered Sig/Nadine Start Time Stop Time Status Last Admin Dose Admin Atorvastatin Calcium (LIPITOR 10 mg) 10 mg HS 07/18/16 21:00 07/18/16 20:20 10 MG Escitalopram Oxalate (LEXAPRO 10mg) 10 mg DAILY 07/18/16 09:00 07/19/16 09:44 10 MG Glimepiride (Amaryl) 2 mg WB 07/18/16 08:00 07/19/16 09:45 2 MG Haloperidol (Haldol) 0.5 mg BID 07/18/16 09:00 07/19/16 09:45 0.5 MG Lisinopril (Prinivil) 5 mg DAILY 07/18/16 09:00 07/19/16 09:45 5 MG Metformin HCl (Glucophage) 500 mg BIDWM 07/18/16 08:00 07/19/16 09:46 500 MG Timolol Hemihydrate (Timoptic 0.5% Eye Drops) 1 drop BID 07/18/16 09:00 07/19/16 09:46 1 DROP Miscellaneous Medication (May use PRN orders) 1 PRN PRN 07/18/16 02:00 Haloperidol (Haldol) 0.5 mg Q6H PRN 07/18/16 02:00 Lorazepam (Ativan) 0.5 mg Q6H PRN 07/18/16 02:00 07/18/16 02:30 0.5 MG Lorazepam (Ativan) 0.5 mg Q6H PRN 07/18/16 02:00 Haloperidol Lactate (Haldol 5 Mg/ml Inj) 0.5 mg Q6H PRN 07/18/16 02:00 Nystatin (Nystatin Powder) 1 applic BID 07/18/16 12:45 07/19/16 09:46 1 APPLIC Aspirin (ASA) 81 mg DAILY 07/19/16 09:00 07/19/16 09:48 81 MG Subjective Patient seen and chart reviewed. Case discussed with treatment team. Staff report that patient has been pleasant and cooperative, but quite obviously having hallucinations (serving a cup of imaginary soup to staff, etc.). Patient is sleeping during rounds. She was given Ativan PRN early this morning but slept 8 hours overnight. Patient scored a 14/30 on SLUMS. Medical team is not planning to treat for UTI at this time though patient had similar symptoms recently with UTI. Appetite is good. Patient has denied any adverse side effects due to medications or other concerns. HR slightly elevated at times. Start Time: 17:00 Stop Time: 17:20 Care >50% of this visit spent in counseling/coordination care. Generations Exam Vitals Vital Signs Date Time Temp Pulse Resp B/P Pulse Ox O2 Delivery O2 Flow Rate FiO2 07/19/16 09:43 97.1 113 16 144/69 97 Room Air Physical examination performed by the hospitalist. Height (Feet): 4 Height (Inches): 11.00 Mental Status Exam Muscle Strength/Tone: Normal Dressing: Casual Grooming: Good Attitude: Cooperative Motor Activity: Retardation Eye Contact: Fair Speech: Normal Volume: Soft Rhythm: Appropriate Rhythm Sensory: Other (Sleeping during rounds) Orientation: Disoriented to time, Disoriented to place, Oriented to person Mood: Other (patient reports mood is good) Affect: Incongruent, Restricted Rate of Thoughts: Appropriate Rate Thought Organization: Confused (at times) Associations: Intact Abstract Reasoning: Poor abstract reasoning Thought Content: Ruminations Perception/Psychotic: Psychotic Current Hallucinations: Visual, Auditory Attention Span/Concentration: Normal Language: Naming Intact Fund of Knowledge: Other (Decreased from baseline) Memory: Other (Some memory changes evident per SLUMS 14) Suicidal Ideation: Denies Homicidal Ideation: Denies Insight: Limited Judgment: Limited Impulse Control: Fair Laboratory Tests Test 07/18/16 20:40 Glucometer 178mg/dL Assessment and Plan (1) Unspecified psychosis Assessment: 07/18/16: Continue current medications. 07/19/16: Increase Haldol to 0.5mg PO q AM and 1mg PO q HS to target continued psychosis, increase Lexapro to 15mg PO daily to target suspected depression. (2) Depression Assessment: suspected (3) Neurocognitive disorder Assessment: unspecified (4) Type II diabetes mellitus (5) Dyslipidemia (6) Hypertension (7) Osteoarthritis Increase Haldol to 0.5mg PO q AM and 1mg PO q HS to target continued psychosis, increase Lexapro to 15mg PO daily to target suspected depression. Monitor patient's mood, behavior and response to treatment. MARIANA CHEUNG MD Jul 19, 2016 15:12
[2016-07-19 23:35] VITALS: PULSE 92
--- NOTE | 2016-07-19 23:43 | NUR ---
Chart Check 24 hour chart check completed
[2016-07-20 00:40] LABS: LDL CHOLESTEROL,CALCULATED 97.8 (66-159); RISK FACTOR 3.8 RATIO (0-4.0); VLDL CHOLESTEROL 14.2 MG/DL (0-28)
--- NOTE | 2016-07-20 00:53 | NUR ---
Status Pt. assisted to bathroom with assist of one tonight and back to bed. Calm and cooperative. Pt. sleeping at this time.
--- NOTE | 2016-07-20 06:07 | NUR ---
shift summary Slept 7.25hrs.
[2016-07-20 08:00] VITALS: BP 126/65; PULSE 103; RESP 18; TEMP 97.5; O2SAT 99
[2016-07-20] MEDS ORDERED: HALOPERIDOL 0.5 MG TABLET PO SCH (09:00)
[2016-07-20 09:05] LABS: BLOOD, URINE NEGATIVE (NEGATIVE); COLOR,URINE YELLOW (YELLOW); LEUKOCYTE ESTERASE ,URINE 1+ (NEGATIVE); NITRITE,URINE NEGATIVE (NEGATIVE); UROBILINOGEN,URINE 0.2 EU/DL (NORMAL)
[2016-07-20] MEDS: METFORMIN 500 MG TABLET PO SCH ×2 (09:08→17:35)
[2016-07-20] MEDS: ASPIRIN 81 MG CHEWABLE TABLET PO SCH (09:08)
[2016-07-20] MEDS: ESCITALOPRAM 10 MG TABLET PO SCH (09:09)
[2016-07-20] MEDS: LISINOPRIL 5 MG TABLET PO SCH (09:09)
[2016-07-20] MEDS: NYSTATIN POWDER 15gm BOTTLE TOP SCH ×2 (09:10→20:45)
[2016-07-20] MEDS: TIMOLOL 0.5% EYE DROPS 5ml RIGHT EYE SCH ×2 (09:10→20:46)
[2016-07-20 09:18] LABS: BACTERIA,URINE TRACE (NEGATIVE); RBC,URINE NONE SEEN /HPF (0-3)
[2016-07-20 09:23] VITALS: PULSE 92
--- NOTE | 2016-07-20 11:45 | NUR ---
Status Pt is alert and oriented to person and place. Pt is pleasant and cooperative with cares and assessment this morning. States having some back pain when laying down, after pt got up and stated moving pt states if feels better. Pt cont. of urine. UA obtained and sent to lab, negative for UTI. Pt is able to assist with dressing and able to brush teeth with set up help only. Pt ambulates with FWW and stand by assist. Pt ate 50% of breakfast. Pt has been doing activities this morning. Colored and answered trivia questions. Pt is now eating lunch, visiting with other pts. No behaviors noted, no hallucinations.
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
[2016-07-20] MEDS ORDERED: MILK OF MAGNESIA 30 ML SUSP PO PRN (13:45)
--- NOTE | 2016-07-20 14:00 | NUR ---
Constipation Pt hasn't had a BM since admission, pt given MOM.
[2016-07-20] MEDS: POLYETHYL.GLYCOL 3350 PACKET 17gm PO SCH (15:04)
[2016-07-20] MEDS ORDERED: BISACODYL 10 MG SUPPOSITORY RECTALLY PRN (15:15)
--- NOTE | 2016-07-20 15:17 | PNPDOC ---
Subjective Date DATE: 07/20/16 TIME:0800 Kentrell Bradford is seen this morning while resting in bed. She arouses during examination and is pleasant. She does complain of having a "sore back". However , attributes it to sleeping on a unfamiliar mattress. Otherwise she denies having any shortness of breath or chest pain. She is noted to be intermittently tachycardic however on auscultation she was at 94. Fasting BGM this morning was 118. BP 126/65. No bowel movements since admission. Objective Vital Signs Vital signs Vital Signs Date Time Temp Pulse Resp B/P Pulse Ox O2 Delivery O2 Flow Rate FiO2 07/20/16 09:23 92 07/20/16 08:00 97.5 18 126/65 99 Room Air Height (Feet): 4 Height (Inches): 11.00 Weight (Kilograms): 57.800 General General Appearance: Alert, Orientated x 1, Cooperative, No Acute Distress Eyes (Brief) Eyes: FOUND: EOMI ENMT (Brief) ENMT: FOUND: mucosa moist, normal dentition, NOT FOUND: pharnyx erythema Neck (Brief) Neck: FOUND: midline, NOT FOUND: adenopathy, carotid bruits, tracheal deviation Respiratory (Brief) Respiratory: FOUND: clear all east, equal bilaterally, NOT FOUND: wheezes Cardiovascular (Brief) Cardiac: FOUND: regular rate, regular rhythm, NOT FOUND: murmur, pedal edema Capillary Refill: <2 sec Abdomen (Brief) Abdominal: FOUND: BS normo active x4, soft, NOT FOUND: distended, tender Lymphatic (Brief) Lymphatic: NOT FOUND: adenopathy Musculoskeletal (Brief) Musculoskeletal: NOT FOUND: tenderness Integumentary (Brief) Integumentary: FOUND: dry, pink, warm Neurologic (Brief) Neurological: FOUND: cranial 2-12 intact Psychiatric (Brief) Psychiatric: FOUND: alert, attentive, normal affect, oriented Microbiology Microbiology Microbiology Date/Time Source Procedure Growth Status 07/17/16 20:08 Urine, Voided-Not Cc-Midstream Urine Culture - Final Mixed Gram Positive Organisms Complete Sepsis Diagnostic Criteria Sepsis Confirmed/Suspected Infection: No Assessment & Plan Problems: (1) Unspecified psychosis Status: Acute (2) Hypertension Status: Chronic (3) Type II diabetes mellitus Status: Chronic (4) Dyslipidemia Status: Chronic (5) Mild dementia Status: Chronic (6) Depression Status: Chronic Plan/Intensity of Service 07/20/16 Spoke with nursing staff regarding more aggressive bowel motivation. Added scheduled Miralax. She was given MOM today. Continue to monitor pulse and blood pressure- as she has been mildly tachycardic. Continue Lisinopril Monitor blood sugars and continue with metformin and Amaryl Urine culture did grow out mixed gram-positive organisms, likely contamination. Any psychiatric treatment as per Dr. Thomas Code Status Full Code, unverified Hospital Course Summary Disclaimer The hospital course summary below is not to be considered part of the above Progress Note. Hospital Course Summary 07/18 Diabetes-fasting and at bedtime monitoring, 2200-calorie carb consistent diet. Patient takes Glucophage 500 mg twice daily and Amaryl. These will be continued and modified as necessary. ER labwork showed a GFR of 69 with a creatinine of 0.8. Kidney function seems fairly well preserved with patient's history of diabetes. Monitor on an as-needed basis. Hemoglobin A1c was 7% on admission. Patient was recently admitted with UTI and encephalopathy. Micro-grew out gram- positive neeta. Patient was treated with antibiotics. Urinalysis in the ER overnight showed 2+ leukocytes, 1+ bacteria however with greater than 50 epithelial cells. Afebrile. No white count. A culture apparently was sent and is pending. Holding on any anti-microbial therapy currently. Comprehensive medical screening workup obtained in the emergency room. CT of the head was negative, chest x-ray was negative, CBC and BMP normal. TSH 2.38. Lipid panel remains pending. Folate and B-12 remain pending. Psychiatry to help with visual hallucinations evaluation and management. 07/20/16 Spoke with nursing staff regarding more aggressive bowel motivation. Added scheduled Miralax. She was given MOM today. Continue to monitor pulse and blood pressure- as she has been mildly tachycardic. Continue Lisinopril Monitor blood sugars and continue with metformin and Amaryl Urine culture did grow out mixed gram-positive organisms, likely contamination. Any psychiatric treatment as per JUAN ANTONIO Wu APRN Jul 20, 2016 15:01
[2016-07-20 16:00] VITALS: BP 104/47; PULSE 96; RESP 16; TEMP 97.7; O2SAT 97
--- NOTE | 2016-07-20 18:25 | NUR ---
Shift Summary Pt's son came to visit at lunch, daughter was here at supper. Pt continues to be pleasant and cooperative with cares. No behaviors or hallucinations noted. Pt has had several BM's this afternoon. Ate 50% of supper. Pt is smiling conversing with staff, and family. No prns given this shift.
[2016-07-20 20:09] VITALS: BP 110/52; PULSE 97; RESP 16; TEMP 96.9; O2SAT 98
[2016-07-20 20:10] VITALS: PULSE 88
[2016-07-20] MEDS: ATORVASTATIN 10 MG TABLET PO SCH (20:45)
[2016-07-20] MEDS: HALOPERIDOL 1 MG TABLET PO SCH (20:46)
--- NOTE | 2016-07-20 22:01 | GENPN ---
[facility] Subjective Date DATE: 07/20/16 TIME: 15:06 Subjective/Severity of Illness Medications Current Medications Medications (Trade) Dose Ordered Sig/Nadine Start Time Stop Time Status Last Admin Dose Admin Atorvastatin Calcium (LIPITOR 10 mg) 10 mg HS 07/18/16 21:00 07/19/16 19:46 10 MG Escitalopram Oxalate (LEXAPRO 10mg) 10 mg DAILY 07/18/16 09:00 07/19/16 17:27 DC 07/19/16 09:44 10 MG Glimepiride (Amaryl) 2 mg WB 07/18/16 08:00 07/19/16 09:45 2 MG Haloperidol (Haldol) 0.5 mg BID 07/18/16 09:00 07/19/16 17:26 DC 07/19/16 09:45 0.5 MG Lisinopril (Prinivil) 5 mg DAILY 07/18/16 09:00 07/20/16 09:09 5 MG Metformin HCl (Glucophage) 500 mg BIDWM 07/18/16 08:00 07/20/16 09:08 500 MG Timolol Hemihydrate (Timoptic 0.5% Eye Drops) 1 drop BID 07/18/16 09:00 07/20/16 09:10 1 DROP Miscellaneous Medication (May use PRN orders) 1 PRN PRN 07/18/16 02:00 Haloperidol (Haldol) 0.5 mg Q6H PRN 07/18/16 02:00 Lorazepam (Ativan) 0.5 mg Q6H PRN 07/18/16 02:00 07/18/16 02:30 0.5 MG Lorazepam (Ativan) 0.5 mg Q6H PRN 07/18/16 02:00 Haloperidol Lactate (Haldol 5 Mg/ml Inj) 0.5 mg Q6H PRN 07/18/16 02:00 Nystatin (Nystatin Powder) 1 applic BID 07/18/16 12:45 07/20/16 09:10 1 APPLIC Aspirin (ASA) 81 mg DAILY 07/19/16 09:00 07/20/16 09:08 81 MG Haloperidol (Haldol) 0.5 mg DAILY 07/20/16 09:00 07/20/16 09:08 0.5 MG Haloperidol (Haldol) 1 mg HS 07/19/16 21:00 07/19/16 19:53 1 MG Escitalopram Oxalate (LEXAPRO 10mg) 15 mg DAILY 07/20/16 09:00 07/20/16 09:09 15 MG Magnesium Hydroxide (Mom) 30 ml DAILY PRN 07/20/16 13:45 07/20/16 13:41 30 ML Polyethylene Glycol (Miralax) 17 g DAILY 07/20/16 15:15 07/20/16 15:04 17 G Bisacodyl (Dulcolax) 10 mg DAILY PRN 07/20/16 15:15 Subjective Patient seen and chart reviewed. Patient is pleasant upon interview but slightly anxious, especially in regards to agitated peer. She worries the woman will come into her room at night and attack her. She also made a paranoid statement today to SW and became more guarded. Have asked staff to move patient room if it would help her feel more comfortable. Today, she denies feeling sad as she had previously and doesn't remember reporting any morbid thoughts as she had. She had a good visit with her son today. She denies any adverse side effects due to medication. Patient sleeping well, eating well. No PRNs required in past 24 hours. Start Time: 16:10 Stop Time: 16:30 Care >50% of this visit spent in counseling/coordination care. [facility] Exam Vitals Vital Signs Date Time Temp Pulse Resp B/P Pulse Ox O2 Delivery O2 Flow Rate FiO2 07/20/16 09:23 92 07/20/16 08:00 97.5 18 126/65 99 Room Air Physical examination performed by the hospitalist. Height (Feet): 4 Height (Inches): 11.00 Mental Status Exam Muscle Strength/Tone: Normal Dressing: Casual Grooming: Good Attitude: Cooperative Motor Activity: Normal Eye Contact: Good Speech: Normal Volume: Soft Rhythm: Appropriate Rhythm Sensory: Alert Orientation: Disoriented to time, Disoriented to place, Oriented to person Mood: Euthymic Affect: Other (mildly anxious) Rate of Thoughts: Delayed Thought Organization: Organized Associations: Intact Abstract Reasoning: Poor abstract reasoning Thought Content: Ruminations (improved from previous), Paranoia (worse intermittently) Perception/Psychotic: Psychotic (recent VH, delusions) Attention Span/Concentration: Normal Language: Naming Intact Fund of Knowledge: Other (Decreased from baseline, SLUMS ) Memory: Grossly Intact Suicidal Ideation: Denies Homicidal Ideation: Denies Insight: Limited Judgment: Limited Impulse Control: Fair Laboratory Tests Test 07/19/16 20:01 07/20/16 05:48 07/20/16 08:52 Glucometer 156mg/dL 118mg/dL Urine Collection Type Voided-not cc-midstr Urine Color Yellow Urine Turbidity Clear Urine pH 5.5 Urine Specific [place] <=1.005 Urine Protein Negative Urine Glucose (UA) Negative Urine Ketones Negative Urine Blood Negative Urine Nitrite Negative Urine Bilirubin Negative Urine Urobilinogen 0.2EU/DL Urine Leukocyte Esterase 1+ Urine RBC None seen/HPF Urine WBC 3-5/HPF Urine Squamous Epithelial Cells 10-20 Urine Bacteria Trace Urine Culture Indicated Cult not indicated Assessment and Plan (1) Unspecified psychosis Assessment: 07/18/16: Continue current medications. 07/19/16: Increase Haldol to 0.5mg PO q AM and 1mg PO q HS to target continued psychosis, increase Lexapro to 15mg PO daily to target suspected depression. 07/20/16: Increase Haldol to 1mg PO BID to target continued paranoia. (2) Depression Assessment: suspected (3) Neurocognitive disorder Assessment: unspecified (4) Type II diabetes mellitus (5) Dyslipidemia (6) Hypertension (7) Osteoarthritis MARIANA CHEUNG MD Jul 20, 2016 15:06
--- NOTE | 2016-07-21 07:00 | NUR ---
Summary arrived on shift patient was sitting in room reading. Patient had bright affect, interacted appropriately with staff, no hallucinations, delusions, or paranoia noted. Patient was cooperative with medications and cares. patient denied pain or discomfort. able to make needs known. patient is up sba with fww. continent of bladder and bowel this shift. patient slept 7.75. no prns given.
[2016-07-21 08:00] VITALS: BP 132/59; PULSE 88; RESP 16; TEMP 97; O2SAT 98
[2016-07-21] MEDS: METFORMIN 500 MG TABLET PO SCH ×2 (08:22→17:47)
[2016-07-21] MEDS: GLIMEPIRIDE 2 MG TABLET PO SCH (08:22)
[2016-07-21] MEDS: ASPIRIN 81 MG CHEWABLE TABLET PO SCH (08:22)
[2016-07-21] MEDS: HALOPERIDOL 1 MG TABLET PO SCH ×2 (08:23→20:21)
[2016-07-21] MEDS: ESCITALOPRAM 10 MG TABLET PO SCH (08:24)
[2016-07-21] MEDS: LISINOPRIL 5 MG TABLET PO SCH (08:25)
[2016-07-21] MEDS: POLYETHYL.GLYCOL 3350 PACKET 17gm PO SCH ×2 (08:25→08:32)
[2016-07-21] MEDS: TIMOLOL 0.5% EYE DROPS 5ml RIGHT EYE SCH ×2 (08:26→20:22)
[2016-07-21] MEDS: NYSTATIN POWDER 15gm BOTTLE TOP SCH ×2 (08:26→20:22)
--- NOTE | 2016-07-21 09:01 | NUR ---
YOUTH PROBATION OFFICER--CODE STATUS LSW received return phone call from pt's daughter/DPOA-HC (Renetta Robles). She wants to make sure that the doctor knows that the patient and family want pt. to be a DNR. DNR form completed and daughter's name signed per her permission. Family wants to find placement for pt. before she discharges. She has given Edwin the names of 3 facilities in [place] that they are interested in. She would also like to add the name of [facility] in [place] as a 4th name. She said her mother continues to have hallucinations and/or delusions. Last night she was convinced that her oldest daughter, Sharon, was visiting her (she lives in [place]).
--- NOTE | 2016-07-21 12:29 | NUR ---
COMMUNITY FUNDRAISER--INDIVIDUAL LSCSW met 1:1 with pt. as she was sitting in her recliner in her room. Pt. was alert, Ox3, calm with slightly depressed mood. Talked with pt. about transitions and difficulty accepting change. Discussed family's hopes of locating a facility where pt. will be able to have her own room while still being able to participate in social activities. Pt. likes to go out when weather is nice. Reminisced about her flower gardens and how she enjoyed working in her garden. Pt. remained calm and reflective during the conversation.
--- NOTE | 2016-07-21 14:30 | NUR ---
SHIFT SUMMARY Pt is AO x 3 pt has been pleasant, cooperative with cares, compliant with medications. Pt complained of pain this morning on her knees, pain medication was offered and Pt refused. Pt speech is clear and appropriate, she is able to make needs known. Pt is SBA. Pt has not had any inappropriate behaviors, no hallucinations noted, no delusions or paranoia noted. pt was upset this morning because her clothes was not washed, It was explained to Pt that we will washed her clothes as soon as possible, Pt states that jeans in her closet do not fit. This RN got some black sweat pants from her closet patient put them on, the sweat pants fit, Pt stated "ok you don't have to worry any more this sweatpants fit. " Pt has been continent today, she has been polite to staff. Pt denies having any hallucinations. No PRN medications given. Pt denies needs or concerns at the moment.
--- NOTE | 2016-07-21 14:36 | NUR ---
JOINT YARNER--FAMILY CONTACT [facility] made phone call to pt's daughter, Renetta [phone], per request of CM regarding medicaid application. Daughter received a second phone call from health and safety representative of [facility] who said pt. couldn't qualify for medical assistance until she had been in shelter or hospital for 30 days. Asked daughter to review their copy of medicaid application that was submitted and make sure they had checked the box that they were applying for shelter assistance. She was at work and will have to have her retrieve it when she gets home. She was encouraged to call back on Sunday and pursue application for LTC.
[2016-07-21 16:00] VITALS: BP 122/55; PULSE 73; RESP 20; TEMP 96.8; O2SAT 99
--- NOTE | 2016-07-21 16:31 | NUR ---
NETWORK SYSTEMS ANALYST--[facility]IVIDUAL [facility] pt. in her room. She was sitting in her recliner looking at magazines. She had found some pictures of jones she wanted to share with me. Pt. demonstrates pleasant mood. She is Ox3 and does not express any delusional thinking. Pt. talked about her family. She is still processing the thought that she will not be going home but to a [facility] if arrangements are able to be made.
--- NOTE | 2016-07-21 17:39 | GENPN ---
[facility] Subjective Date DATE: 07/21/16 TIME: 17:36 Subjective/Severity of Illness Medications Current Medications Medications (Trade) Dose Ordered Sig/Nadine Start Time Stop Time Status Last Admin Dose Admin Atorvastatin Calcium (LIPITOR 10 mg) 10 mg HS 07/18/16 21:00 07/20/16 20:45 10 MG Escitalopram Oxalate (LEXAPRO 10mg) 10 mg DAILY 07/18/16 09:00 07/19/16 17:27 DC 07/19/16 09:44 10 MG Glimepiride (Amaryl) 2 mg WB 07/18/16 08:00 07/21/16 08:22 2 MG Haloperidol (Haldol) 0.5 mg BID 07/18/16 09:00 07/19/16 17:26 DC 07/19/16 09:45 0.5 MG Lisinopril (Prinivil) 5 mg DAILY 07/18/16 09:00 07/21/16 08:25 5 MG Metformin HCl (Glucophage) 500 mg BIDWM 07/18/16 08:00 07/21/16 08:22 500 MG Timolol Hemihydrate (Timoptic 0.5% Eye Drops) 1 drop BID 07/18/16 09:00 07/21/16 08:26 1 DROP Miscellaneous Medication (May use PRN orders) 1 PRN PRN 07/18/16 02:00 Haloperidol (Haldol) 0.5 mg Q6H PRN 07/18/16 02:00 Lorazepam (Ativan) 0.5 mg Q6H PRN 07/18/16 02:00 07/18/16 02:30 0.5 MG Lorazepam (Ativan) 0.5 mg Q6H PRN 07/18/16 02:00 Haloperidol Lactate (Haldol 5 Mg/ml Inj) 0.5 mg Q6H PRN 07/18/16 02:00 Nystatin (Nystatin Powder) 1 applic BID 07/18/16 12:45 07/21/16 08:26 1 APPLIC Aspirin (ASA) 81 mg DAILY 07/19/16 09:00 07/21/16 08:22 81 MG Haloperidol (Haldol) 0.5 mg DAILY 07/20/16 09:00 07/20/16 21:56 DC 07/20/16 09:08 0.5 MG Haloperidol (Haldol) 1 mg HS 07/19/16 21:00 07/20/16 21:56 DC 07/20/16 20:46 1 MG Escitalopram Oxalate (LEXAPRO 10mg) 15 mg DAILY 07/20/16 09:00 07/21/16 08:24 15 MG Magnesium Hydroxide (Mom) 30 ml DAILY PRN 07/20/16 13:45 07/20/16 13:41 30 ML Polyethylene Glycol (Miralax) 17 g DAILY 07/20/16 15:15 07/20/16 15:04 17 G Bisacodyl (Dulcolax) 10 mg DAILY PRN 07/20/16 15:15 Haloperidol (Haldol) 1 mg BID 07/21/16 09:00 07/21/16 08:23 1 MG Subjective Patient seen and chart reviewed. Case discussed with treatment team. Nursing reports pt is doing well. Sleeping well and has a good appetite. On face to face the pt states she is doing well. She is alert and oriented x 3. She reports tolerating her medication well. Denies any psychotic symptoms. Voices no concerns at this time Time of Service: 16:30 Start Time: 16:30 Stop Time: 16:45 Care >50% of this visit spent in counseling/coordination care. Generations Exam Vitals Vital Signs Date Time Temp Pulse Resp B/P Pulse Ox O2 Delivery O2 Flow Rate FiO2 07/21/16 08:00 97.0 88 16 132/59 98 Room Air Physical examination performed by the hospitalist. Height (Feet): 4 Height (Inches): 11.00 Mental Status Exam Muscle Strength/Tone: Normal Dressing: Casual Grooming: Good Attitude: Cooperative Motor Activity: Normal Eye Contact: Good Speech: Slowed Volume: Soft Rhythm: Appropriate Rhythm Sensory: Alert Orientation: Oriented X4 Mood: Neutral Affect: Congruent Rate of Thoughts: Delayed Thought Organization: [place] Associations: Intact Abstract Reasoning: Intact, able to abstract Thought Content: Normal Perception/Psychotic: Hx psychosis,not current Attention Span/Concentration: Normal Fund of Knowledge: Poor fund of knowledge Memory: Poor-immediate, Poor-recent Suicidal Ideation: None Homicidal Ideation: None Insight: Limited Judgment: Limited Impulse Control: Fair Laboratory Tests Test 07/21/16 06:28 Glucometer 155mg/dL Assessment and Plan (1) Unspecified psychosis Assessment: 07/18/16: Continue current medications. 07/19/16: Increase Haldol to 0.5mg PO q AM and 1mg PO q HS to target continued psychosis, increase Lexapro to 15mg PO daily to target suspected depression. 07/20/16: Increase Haldol to 1mg PO BID to target continued paranoia 07/21/16 Continue current care (2) Depression Assessment: suspected (3) Neurocognitive disorder Assessment: unspecified (4) Type II diabetes mellitus (5) Dyslipidemia (6) Hypertension (7) Osteoarthritis Cont. current psych. meds MIKEL SOSA MD Jul 21, 2016 17:39
--- NOTE | 2016-07-21 19:08 | NUR ---
Shift Summary This RN took over cares at 1500; this afternoon she has sat in her recliner in her room, visits with son then comes to the dining room for supper (ate 100%). Following the meal she returns to her room and her son stays until 1850. No obvious AVH this afternoon, no physical or verbal aggression, no complaints or outward s/sx of anxiety
[2016-07-21 19:10] VITALS: BP 121/40; PULSE 82; RESP 16; TEMP 97; O2SAT 95
[2016-07-21] MEDS: ATORVASTATIN 10 MG TABLET PO SCH (20:21)
[2016-07-21 22:48] VITALS: BP 160/71; PULSE 87; RESP 16; TEMP 97.6; O2SAT 98
--- NOTE | 2016-07-21 23:46 | NUR ---
Status Assumed patient care at 1900 and assessment completed at 1910. Patient is in room at time of assessment and is sitting in her recliner looking out the window/thumbing through magazines. She is pleasant, cooperative, and conversational; ALOx3 and with slightly slowed/deliberate speech. She denies any pain or discomfort. She follows commands appropriately and no evidence of hallucinations, delusions, or anxiety is noted. Patient denies feelings of anxiety or troubling thoughts. Patient readily engages in conversation and makes good eye contact. Another patient is being loud in the melendrez at time of assessment; Suzette apologizes to staff stating that, "You'll have to ignore the melendrez - I'm getting used to it." Patient reassures easily but prefers to stay in her room. VS are stable. Cooperative with shower; assists with cares as able and is appreciative/accepting of staff assistance when needed. Readily compliant with medications. She rests in bed for a short time at HS then uses call hancock to notify staff of need to use bathroom. Following cares, she requests peanut butter and crackers with milk for a snack. Ordered diet and rationale reviewed with patient, as well as evening BGM of 111. Patient insists that she always has peanut butter crackers and milk at bedtime and if not, her BGM is low in the morning. Snack provided as per patient's request and she sits in the room recliner for a short time before going back to bed. Demonstrates passive/polite behavior; no physical or verbal aggression is noted. Resting quietly at the current time. Bed alarm is on and side rails are up x2.
--- NOTE | 2016-07-22 06:29 | NUR ---
Summary Patient slept 7 hours this shift. ALOx3 and in a pleasant/polite mood; smiles readily, initiates conversation, and makes good eye contact. She does isolate in room last evening, indicating that she likes a quiet atmosphere (another patient was loud last evening in the dayroom and halls). Uses call hancock appropriately throughout the shift, to notify staff of needs. Denies any pain/discomfort or anxiety. No evidence of hallucinations/delusions are noted. No aggressive behavior is noted. Readily compliant with medications. Performs self-care independently as able - appreciative of staff assistance when offered. Up several times overnight to toilet; denies dysuria and states that she has been sleeping well.
--- NOTE | 2016-07-22 06:33 | NUR ---
Chart Check 24 hour chart check completed
[2016-07-22] MEDS: METFORMIN 500 MG TABLET PO SCH ×2 (07:36→16:41)
[2016-07-22] MEDS: GLIMEPIRIDE 2 MG TABLET PO SCH (07:36)
[2016-07-22] MEDS: ASPIRIN 81 MG CHEWABLE TABLET PO SCH (07:36)
[2016-07-22] MEDS: HALOPERIDOL 1 MG TABLET PO SCH ×2 (07:36→20:00)
[2016-07-22] MEDS: LISINOPRIL 5 MG TABLET PO SCH (07:36)
[2016-07-22] MEDS: ESCITALOPRAM 10 MG TABLET PO SCH (07:37)
[2016-07-22] MEDS: NYSTATIN POWDER 15gm BOTTLE TOP SCH ×2 (07:37→20:01)
[2016-07-22] MEDS: POLYETHYL.GLYCOL 3350 PACKET 17gm PO SCH (07:37)
[2016-07-22] MEDS: TIMOLOL 0.5% EYE DROPS 5ml RIGHT EYE SCH ×2 (07:38→20:01)
--- NOTE | 2016-07-22 08:00 | NUR ---
Pt Status Pt is oriented to time, place and date and person. Denies pain except for has "trouble sleeping that bed." Denies any hallucinations but guarded with questions; "I don't want to cause any problems."
[2016-07-22 08:16] VITALS: BP 125/54; PULSE 76; RESP 16; TEMP 96.8; O2SAT 99
--- NOTE | 2016-07-22 09:18 | PNPDOC ---
MELINDA RANGEL PARAPROFESSIONAL AIDE 07/22/16 0912: Subjective Date DATE: 07/22/16 TIME: 09:09 Subjective Suzette was eating breakfast. She remembered me from when I visited her at her house for the [facility]. She states that she feels good, and denies any hallucinations. She's been A&O x3 and pleasant and cooperative with cares. She denies any pain, difficulty breathing, or GI complaints. She has had a good appetite and bowels have been moving. Blood sugars are under fairly good control. She told me that Rehan (son) is arranging a home inspection for her duplex in [place], but she's not sure where she will go upon discharge. Objective Vital Signs Vital signs Vital Signs Date Time Temp Pulse Resp B/P Pulse Ox O2 Delivery O2 Flow Rate FiO2 07/22/16 08:16 96.8 76 16 125/54 99 Room Air Height (Feet): 4 Height (Inches): 11.00 Weight (Kilograms): 57.800 General General Appearance: Alert, Orientated x 3, Well Nourished, Well Developed, No Acute Distress Eyes (Brief) Eyes: FOUND: PERRL, NOT FOUND: scleral icterus ENMT (Brief) ENMT: FOUND: mucosa moist, NOT FOUND: pharnyx erythema Respiratory (Brief) Respiratory: FOUND: clear all east, equal bilaterally Cardiovascular (Brief) Cardiac: FOUND: regular rate, regular rhythm Abdomen (Brief) Abdominal: FOUND: BS normo active x4, soft, NOT FOUND: distended, tender Extremities (Brief) Extremity : Side: Bilateral Extremity: foot Extremity Finding: FOUND: edema (trace) Musculoskeletal (Brief) Musculoskeletal: NOT FOUND: deformity, tenderness Integumentary (Brief) Integumentary: FOUND: dry, pink, warm Psychiatric (Brief) Psychiatric: FOUND: alert, attentive, normal affect, oriented Sepsis Diagnostic Criteria Sepsis Confirmed/Suspected Infection: No Assessment & Plan Problems: (1) Unspecified psychosis Status: Acute (2) Hypertension Status: Chronic (3) Type II diabetes mellitus Status: Chronic (4) Dyslipidemia Status: Chronic (5) Mild dementia Status: Chronic (6) Depression Status: Chronic Plan/Intensity of Service Medically stable - tachycardia resolved; constipation resolved. BP stable on Lisinopril. BG under fairly good control on oral antidiabetics. Familiar with this patient from recent [facility] visit - she should also be on Lasix 10 mg daily. She has chronic lower ext. edema. Will check BMP + mg on 07/24/16 to determine need for K and Mg supplementation (she was not taking K at home). She also has a hx of dysuria and frequent UTI. Shanna Umana has recommended urologic eval in the past but pt was unable to go. Psych progress notes reviewed - Haldol dose increased and Lexapro initiated for depression. Code Status Do Not Resuscitate Hospital Course Summary Disclaimer The hospital course summary below is not to be considered part of the above Progress Note. Hospital Course Summary 07/18 Diabetes-fasting and at bedtime monitoring, 2200-calorie carb consistent diet. Patient takes Glucophage 500 mg twice daily and Amaryl. These will be continued and modified as necessary. ER labwork showed a GFR of 69 with a creatinine of 0.8. Kidney function seems fairly well preserved with patient's history of diabetes. Monitor on an as-needed basis. Hemoglobin A1c was 7% on admission. Patient was recently admitted with UTI and encephalopathy. Micro-grew out gram- positive neeta. Patient was treated with antibiotics. Urinalysis in the ER overnight showed 2+ leukocytes, 1+ bacteria however with greater than 50 epithelial cells. Afebrile. No white count. A culture apparently was sent and is pending. Holding on any anti-microbial therapy currently. Comprehensive medical screening workup obtained in the emergency room. CT of the head was negative, chest x-ray was negative, CBC and BMP normal. TSH 2.38. Lipid panel remains pending. Folate and B-12 remain pending. Psychiatry to help with visual hallucinations evaluation and management. 07/20/16 Spoke with nursing staff regarding more aggressive bowel motivation. Added scheduled Miralax. She was given MOM today. Continue to monitor pulse and blood pressure- as she has been mildly tachycardic. Continue Lisinopril Monitor blood sugars and continue with metformin and Amaryl Urine culture did grow out mixed gram-positive organisms, likely contamination. Any psychiatric treatment as per Dr. Thomas 07/22/16 Medically stable - tachycardia resolved; constipation resolved. BP stable on Lisinopril. BG under fairly good control on oral antidiabetics. Familiar with this patient from recent [facility] visit - she should also be on Lasix 10 mg daily. She has chronic lower ext. edema. Will check BMP + mg on 07/24/16 to determine need for K and Mg supplementation (she was not taking K at home). She also has a hx of dysuria and frequent UTI. Shanna Umana has recommended urologic eval in the past but pt was unable to go. Psych progress notes reviewed - Haldol dose increased and Lexapro initiated for depression. CESAR FIERRO MD 07/22/162033: Assessment & Plan Assessment I have independently evaluated and examined this patient. I reviewed the chart, the patient's history, and the PARAPROFESSIONAL AIDE's documented findings as above. We discussed and formulated the assessment and plan as above with additions as below: Suzette was seen in the day room. She reports that she is doing well and has no complaints. Her appetite was good. Examination: Respirations nonlabored with good airflow and clear lung east. Cardiac rhythm regular Abdomen soft and nontender Laboratory data reviewed, blood sugars well controlled, A1c 7.0, B 12> 1000. Agree with urinalysis interpretation. Continue current management. MELINDA RANGEL APRN Jul 22, 2016 09:12 CESAR FIERRO MD Jul 22, 2016 20:34
[2016-07-22] MEDS: FUROSEMIDE 20 MG TABLET PO SCH (10:05)
--- NOTE | 2016-07-22 11:13 | GENPN ---
[facility] Subjective Date DATE: 07/22/16 TIME: 11:11 Subjective/Severity of Illness Medications Current Medications Medications (Trade) Dose Ordered Sig/Nadine Start Time Stop Time Status Last Admin Dose Admin Atorvastatin Calcium (LIPITOR 10 mg) 10 mg HS 07/18/16 21:00 07/21/16 20:21 10 MG Escitalopram Oxalate (LEXAPRO 10mg) 10 mg DAILY 07/18/16 09:00 07/19/16 17:27 DC 07/19/16 09:44 10 MG Glimepiride (Amaryl) 2 mg WB 07/18/16 08:00 07/22/16 07:36 2 MG Haloperidol (Haldol) 0.5 mg BID 07/18/16 09:00 07/19/16 17:26 DC 07/19/16 09:45 0.5 MG Lisinopril (Prinivil) 5 mg DAILY 07/18/16 09:00 07/22/16 07:36 5 MG Metformin HCl (Glucophage) 500 mg BIDWM 07/18/16 08:00 07/22/16 07:36 500 MG Timolol Hemihydrate (Timoptic 0.5% Eye Drops) 1 drop BID 07/18/16 09:00 07/22/16 07:38 1 DROP Miscellaneous Medication (May use PRN orders) 1 PRN PRN 07/18/16 02:00 Haloperidol (Haldol) 0.5 mg Q6H PRN 07/18/16 02:00 Lorazepam (Ativan) 0.5 mg Q6H PRN 07/18/16 02:00 07/18/16 02:30 0.5 MG Lorazepam (Ativan) 0.5 mg Q6H PRN 07/18/16 02:00 Haloperidol Lactate (Haldol 5 Mg/ml Inj) 0.5 mg Q6H PRN 07/18/16 02:00 Nystatin (Nystatin Powder) 1 applic BID 07/18/16 12:45 07/22/16 07:37 1 APPLIC Aspirin (ASA) 81 mg DAILY 07/19/16 09:00 07/22/16 07:36 81 MG Haloperidol (Haldol) 0.5 mg DAILY 07/20/16 09:00 07/20/16 21:56 DC 07/20/16 09:08 0.5 MG Haloperidol (Haldol) 1 mg HS 07/19/16 21:00 07/20/16 21:56 DC 07/20/16 20:46 1 MG Escitalopram Oxalate (LEXAPRO 10mg) 15 mg DAILY 07/20/16 09:00 07/22/16 07:37 15 MG Magnesium Hydroxide (Mom) 30 ml DAILY PRN 07/20/16 13:45 07/20/16 13:41 30 ML Polyethylene Glycol (Miralax) 17 g DAILY 07/20/16 15:15 07/22/16 07:37 17 G Bisacodyl (Dulcolax) 10 mg DAILY PRN 07/20/16 15:15 Haloperidol (Haldol) 1 mg BID 07/21/16 09:00 07/22/16 07:36 1 MG Furosemide (Lasix) 10 mg DAILY 07/22/16 09:15 07/22/16 10:05 10 MG Subjective Patient seen and chart reviewed. Case discussed with nursing. Nursing reports pt is doing well. Sleeping and eating well. No behaviors noted. On face to face the pt states she is doing well. She is alert and oriented x 3. She reports her mood is stable. Denies any paranoia. Tolerating meds. Voices no concerns at this time Time of Service: 11:00 Start Time: 11:00 Stop Time: 11:15 Care >50% of this visit spent in counseling/coordination care. [facility] Exam Vitals Vital Signs Date Time Temp Pulse Resp B/P Pulse Ox O2 Delivery O2 Flow Rate FiO2 07/22/16 08:16 96.8 76 16 125/54 99 Room Air Physical examination performed by the hospitalist. Height (Feet): 4 Height (Inches): 11.00 Mental Status Exam Muscle Strength/Tone: Normal Dressing: Casual Grooming: Good Attitude: Cooperative Motor Activity: Normal Eye Contact: Good Speech: Normal Volume: Normal Rhythm: Appropriate Rhythm Sensory: Alert Orientation: Oriented X4 Mood: Euthymic Affect: Congruent Rate of Thoughts: Appropriate Rate Thought Organization: Organized Associations: Intact Abstract Reasoning: Intact, able to abstract Thought Content: Normal Perception/Psychotic: Perception Normal, Hx psychosis,not current Attention Span/Concentration: Normal Fund of Knowledge: Poor fund of knowledge Memory: Poor-immediate Suicidal Ideation: None Homicidal Ideation: None Insight: Limited Judgment: Limited Impulse Control: Good, Fair Laboratory Tests Test 07/21/16 20:17 07/22/16 04:46 Glucometer 111mg/dL 96mg/dL Assessment and Plan (1) Unspecified psychosis Assessment: 07/18/16: Continue current medications. 07/19/16: Increase Haldol to 0.5mg PO q AM and 1mg PO q HS to target continued psychosis, increase Lexapro to 15mg PO daily to target suspected depression. 07/20/16: Increase Haldol to 1mg PO BID to target continued paranoia 07/21/16 Continue current care 07/22/16 Continue current care (2) Depression Assessment: suspected (3) Neurocognitive disorder Assessment: unspecified (4) Type II diabetes mellitus (5) Dyslipidemia (6) Hypertension (7) Osteoarthritis Cont. current psych. meds MIKEL SOSA MD Jul 22, 2016 11:13
--- NOTE | 2016-07-22 12:30 | NUR ---
Pt. sits in room and reads, denies discomfort nor expresses anxiety. Tends to isolate but is pleasant when approached and engages without hesitation. No hallucinations described.
[2016-07-22 16:00] VITALS: BP 130/58; PULSE 72; RESP 16; TEMP 96.8; O2SAT 100
--- NOTE | 2016-07-22 18:29 | NUR ---
Shift Summary Pt cooperative and indicates when needs help. Takes medication without difficulty and is cooperative.
[2016-07-22 19:50] VITALS: BP 153/67; PULSE 87; RESP 18; TEMP 97; O2SAT 97
[2016-07-22] MEDS: ATORVASTATIN 10 MG TABLET PO SCH (20:00)
--- NOTE | 2016-07-22 21:58 | NUR ---
Status Assumed patient care at 1900 and assessment completed at 1950. Patient is in her room this evening, visiting with her son, Rehan. She is ALOx3 and in a happy/pleasant/cooperative mood. She engages readily in conversation and makes good eye contact; speech is somewhat slowed and deliberate. HS BGM is 82 and snack provided as per her request (ordered diet and BGM reviewed with patient; she insists on peanut butter crackers and apple juice). Ambulates with FWW and demonstrates appropriate safety awareness. Performs cares mostly independently (assistance provided with set-up and dressing lower body). Denies any pain/discomfort. VS are stable. Continent of urine and able to notify staff of needs. Readily compliant with medications. No evidence of paranoia or hallucinations are noted. Denies anxiety/troubling thoughts. Resting quietly at the current time. Bed alarm is on and side rails are up x2.
--- NOTE | 2016-07-22 23:48 | NUR ---
Chart Check 24 hour chart check completed
[2016-07-23 01:10] VITALS: BP 158/71; PULSE 84; RESP 16; TEMP 97.8; O2SAT 98
--- NOTE | 2016-07-23 06:29 | NUR ---
Summary Patient slept 4.75 hours this shift. ALOx3 and with a bright affect; smiles/laughs readily, initiates conversation, and makes appropriate eye contact. Denies any pain/discomfort or anxiety. No hallucinations are noted or reported. Compliant with medications. Performs self-care as able and is accepting/appreciative of staff assistance when needed. Patient does not exhibit any aggressive behavior. Fasting BGM is 107. Requests to watch a [employer] service on television this morning - up in room at the current time. Prune juice given as per her request. Staff is with patient.
--- NOTE | 2016-07-23 07:30 | NUR ---
Pt Status Pt sitting in day room visiting with son and eating breakfast brought in by son. Pt is alert and oriented x3. Pt requested shower this a.m. since her aerial survey technician is visiting her this afternoon. Pt is methodical with shower and cooperative and pleasant. Denies having hallucinations.
[2016-07-23 08:00] VITALS: BP 130/58; PULSE 97; RESP 16; TEMP 97.6; O2SAT 97
[2016-07-23 08:51] VITALS: PULSE 97; RESP 16
[2016-07-23] MEDS: POLYETHYL.GLYCOL 3350 PACKET 17gm PO SCH (09:00)
[2016-07-23] MEDS: ESCITALOPRAM 10 MG TABLET PO SCH (09:00)
[2016-07-23] MEDS: LISINOPRIL 5 MG TABLET PO SCH (09:04)
[2016-07-23] MEDS: GLIMEPIRIDE 2 MG TABLET PO SCH (09:04)
[2016-07-23] MEDS: FUROSEMIDE 20 MG TABLET PO SCH (09:05)
[2016-07-23] MEDS: HALOPERIDOL 1 MG TABLET PO SCH ×2 (09:05→20:38)
[2016-07-23] MEDS: ASPIRIN 81 MG CHEWABLE TABLET PO SCH (09:05)
[2016-07-23] MEDS: NYSTATIN POWDER 15gm BOTTLE TOP SCH ×2 (09:06→20:38)
[2016-07-23] MEDS: METFORMIN 500 MG TABLET PO SCH ×2 (09:06→17:29)
[2016-07-23] MEDS: TIMOLOL 0.5% EYE DROPS 5ml RIGHT EYE SCH ×2 (09:06→20:39)
--- NOTE | 2016-07-23 12:03 | GENPN ---
[facility] Subjective Date DATE: 07/23/16 TIME: 12:01 Subjective/Severity of Illness Medications Current Medications Medications (Trade) Dose Ordered Sig/Nadine Start Time Stop Time Status Last Admin Dose Admin Atorvastatin Calcium (LIPITOR 10 mg) 10 mg HS 07/18/16 21:00 07/22/16 20:00 10 MG Escitalopram Oxalate (LEXAPRO 10mg) 10 mg DAILY 07/18/16 09:00 07/19/16 17:27 DC 07/19/16 09:44 10 MG Glimepiride (Amaryl) 2 mg WB 07/18/16 08:00 07/23/16 09:04 2 MG Haloperidol (Haldol) 0.5 mg BID 07/18/16 09:00 07/19/16 17:26 DC 07/19/16 09:45 0.5 MG Lisinopril (Prinivil) 5 mg DAILY 07/18/16 09:00 07/23/16 09:04 5 MG Metformin HCl (Glucophage) 500 mg BIDWM 07/18/16 08:00 07/23/16 09:06 500 MG Timolol Hemihydrate (Timoptic 0.5% Eye Drops) 1 drop BID 07/18/16 09:00 07/23/16 09:06 1 DROP Miscellaneous Medication (May use PRN orders) 1 PRN PRN 07/18/16 02:00 Haloperidol (Haldol) 0.5 mg Q6H PRN 07/18/16 02:00 Lorazepam (Ativan) 0.5 mg Q6H PRN 07/18/16 02:00 07/18/16 02:30 0.5 MG Lorazepam (Ativan) 0.5 mg Q6H PRN 07/18/16 02:00 Haloperidol Lactate (Haldol 5 Mg/ml Inj) 0.5 mg Q6H PRN 07/18/16 02:00 Nystatin (Nystatin Powder) 1 applic BID 07/18/16 12:45 07/23/16 09:06 1 APPLIC Aspirin (ASA) 81 mg DAILY 07/19/16 09:00 07/23/16 09:05 81 MG Haloperidol (Haldol) 0.5 mg DAILY 07/20/16 09:00 07/20/16 21:56 DC 07/20/16 09:08 0.5 MG Haloperidol (Haldol) 1 mg HS 07/19/16 21:00 07/20/16 21:56 DC 07/20/16 20:46 1 MG Escitalopram Oxalate (LEXAPRO 10mg) 15 mg DAILY 07/20/16 09:00 07/23/16 09:00 15 MG Magnesium Hydroxide (Mom) 30 ml DAILY PRN 07/20/16 13:45 07/20/16 13:41 30 ML Polyethylene Glycol (Miralax) 17 g DAILY 07/20/16 15:15 07/22/16 07:37 17 G Bisacodyl (Dulcolax) 10 mg DAILY PRN 07/20/16 15:15 Haloperidol (Haldol) 1 mg BID 07/21/16 09:00 07/23/16 09:05 1 MG Furosemide (Lasix) 10 mg DAILY 07/22/16 09:15 07/23/16 09:05 10 MG Subjective Patient seen and chart reviewed. Case discussed with nursing. Nursing reports pt is doing well. Sleeping and eating well. No behaviors noted. On face to face the pt states she is doing well. She thought this automatic typewriter inspector was her stretching machine operator but is oriented x 3. She reports her mood is stable and she denies any paranoia. Denies pain. Tolerating meds. Voices no concerns at this time Time of Service: 11:00 Start Time: 11:00 Stop Time: 11:15 Care >50% of this visit spent in counseling/coordination care. [facility] Exam Vitals Vital Signs Date Time Temp Pulse Resp B/P Pulse Ox O2 Delivery O2 Flow Rate FiO2 07/23/16 08:51 97 16 07/23/16 08:00 97.6 130/58 97 Room Air Physical examination performed by the hospitalist. Height (Feet): 4 Height (Inches): 11.00 Mental Status Exam Muscle Strength/Tone: Normal Dressing: Casual Grooming: Good Attitude: Cooperative Motor Activity: Normal Eye Contact: Good Speech: Normal Volume: Normal Rhythm: Appropriate Rhythm Sensory: Alert, Drowsy Orientation: Oriented X4 Mood: Euthymic Affect: Congruent Rate of Thoughts: Appropriate Rate Thought Organization: Organized Associations: Intact Abstract Reasoning: Intact, able to abstract Perception/Psychotic: Perception Normal, Hx psychosis,not current Attention Span/Concentration: Short Span Fund of Knowledge: Poor fund of knowledge Memory: Poor-immediate Suicidal Ideation: None Homicidal Ideation: None Insight: Limited Judgment: Limited Impulse Control: Fair Laboratory Tests Test 07/22/16 20:10 07/23/16 05:07 Glucometer 82mg/dL 107mg/dL Assessment and Plan (1) Unspecified psychosis Assessment: 07/18/16: Continue current medications. 07/19/16: Increase Haldol to 0.5mg PO q AM and 1mg PO q HS to target continued psychosis, increase Lexapro to 15mg PO daily to target suspected depression. 07/20/16: Increase Haldol to 1mg PO BID to target continued paranoia 07/21/16 Continue current care 07/22/16 Continue current care 07/23/16 Continue current care (2) Depression Assessment: suspected (3) Neurocognitive disorder Assessment: unspecified (4) Type II diabetes mellitus (5) Dyslipidemia (6) Hypertension (7) Osteoarthritis Cont. current psych. meds MIKEL SOSA MD Jul 23, 2016 12:03
--- NOTE | 2016-07-23 14:00 | NUR ---
Pt. sits in room in recliner and chair alarm on and verbalizes needs. Pleasant to staff and other patients. Had visitors and reported glad to see her medical accounting clerk.
[2016-07-23 15:59] VITALS: BP 133/64; PULSE 95; RESP 23; TEMP 97.3; O2SAT 99
--- NOTE | 2016-07-23 18:00 | NUR ---
Shift Summary Pt continued pleasant, cooperative with cares and medications and voices needs readily. No hallucinations described.
[2016-07-23 20:00] VITALS: PULSE 88; RESP 20
[2016-07-23] MEDS: ATORVASTATIN 10 MG TABLET PO SCH (20:38)
[2016-07-23 22:15] VITALS: BP 143/67; PULSE 98; RESP 16; TEMP 97.1; O2SAT 97
--- NOTE | 2016-07-23 22:19 | NUR ---
Pleasant and cooperative. Uses call light appropriately. Uses walker and stand by assist to and from bathroom. Takes medication without hesitation. No abnormal behaviors
[2016-07-24] VITALS: BP 0/0; PULSE 0; RESP 0; O2SAT 0
--- NOTE | 2016-07-24 00:08 | NUR ---
Chart Check 24 hour chart check completed
--- NOTE | 2016-07-24 00:29 | NUR ---
Sleeping well. Used call light for assistance to bathroom. Voids without difficulty.
--- NOTE | 2016-07-24 05:32 | NUR ---
Assisted to bathroom during the night. Pt. uses walker when she ambulates. Alert and orientated. Hallucination and confusion not present. Addendum: 07/24/16 at 0534 by FELISA TURCIOS RN Amended: Links added.
[2016-07-24 07:25] LABS: ANION GAP 11 MEQ/L (5-15); BUN/CREATININE RATIO 20 RATIO (6-26); CALCIUM 9.7 MG/DL (8.4-10.2); CHLORIDE 99 MEQ/L (98-107); CO2 - CARBON DIOXIDE 31 MEQ/L (22-30); CREATININE 0.8 MG/DL (0.7-1.2); GLOMERULAR FILTRATION RATE 69; GLUCOSE 108 MG/DL (65-110); MAGNESIUM 1.3 MG/DL (1.6-2.3); POTASSIUM 4.2 MEQ/L (3.6-5); SODIUM 141 MEQ/L (134-144)
--- NOTE | 2016-07-24 08:37 | PNPDOC ---
Subjective Date DATE: 07/24/16 TIME: 08:31 Subjective Suzette was seen in her room, resting in her recliner. She states that she is tired, and feels slow to get moving this morning. Otherwise, she denies any acute concerns. She states she is feeling well. She has been alert and oriented 3. No recent reports of confusion or hallucinations. Objective Vital Signs Vital signs Vital Signs Date Time Temp Pulse Resp B/P Pulse Ox O2 Delivery O2 Flow Rate FiO2 07/24/16 00:00 0 0 0/0 0 07/23/16 22:15 97.1 Room Air Height (Feet): 4 Height (Inches): 11.00 Weight (Kilograms): 57.800 General General Appearance: Alert, Orientated x 3, Well Nourished, Well Developed, No Acute Distress Eyes (Brief) Eyes: FOUND: PERRL, NOT FOUND: scleral icterus ENMT (Brief) ENMT: FOUND: mucosa moist, NOT FOUND: pharnyx erythema Respiratory (Brief) Respiratory: FOUND: clear all east, equal bilaterally Cardiovascular (Brief) Cardiac: FOUND: regular rate, regular rhythm Abdomen (Brief) Abdominal: FOUND: BS normo active x4, soft, NOT FOUND: distended, tender Extremities (Brief) Extremity : Extremity Finding: NOT FOUND: deformity, pain Integumentary (Brief) Integumentary: FOUND: dry, pink, warm Psychiatric (Brief) Psychiatric: FOUND: alert, attentive, normal affect, oriented Laboratory Laboratory Laboratory Tests 07/24/16 06:41 Sepsis Diagnostic Criteria Sepsis Confirmed/Suspected Infection: No Assessment & Plan Problems: (1) Hypomagnesemia Status: Acute (2) Unspecified psychosis Status: Acute (3) Hypertension Status: Chronic (4) Type II diabetes mellitus Status: Chronic (5) Dyslipidemia Status: Chronic (6) Mild dementia Status: Chronic (7) Depression Status: Chronic Plan/Intensity of Service Magnesium level was low at 1.3, and replacement has been ordered. Potassium level was normal at 4.2. Will recheck magnesium level tomorrow morning. Vital signs are stable. Blood sugars overall are under fairly good control - she tends to run the highest 2 hours after supper, with sugars between 150s- 170s. Fastings have been less than 120. Psychiatric progress notes reviewed. Discussed with nursing staff. Code Status Do Not Resuscitate Hospital Course Summary Disclaimer The hospital course summary below is not to be considered part of the above Progress Note. Hospital Course Summary 07/18 Diabetes-fasting and at bedtime monitoring, 2200-calorie carb consistent diet. Patient takes Glucophage 500 mg twice daily and Amaryl. These will be continued and modified as necessary. ER labwork showed a GFR of 69 with a creatinine of 0.8. Kidney function seems fairly well preserved with patient's history of diabetes. Monitor on an as-needed basis. Hemoglobin A1c was 7% on admission. Patient was recently admitted with UTI and encephalopathy. Micro-grew out gram- positive neeta. Patient was treated with antibiotics. Urinalysis in the ER overnight showed 2+ leukocytes, 1+ bacteria however with greater than 50 epithelial cells. Afebrile. No white count. A culture apparently was sent and is pending. Holding on any anti-microbial therapy currently. Comprehensive medical screening workup obtained in the emergency room. CT of the head was negative, chest x-ray was negative, CBC and BMP normal. TSH 2.38. Lipid panel remains pending. Folate and B-12 remain pending. Psychiatry to help with visual hallucinations evaluation and management. 07/20/16 Spoke with nursing staff regarding more aggressive bowel motivation. Added scheduled Miralax. She was given MOM today. Continue to monitor pulse and blood pressure- as she has been mildly tachycardic. Continue Lisinopril Monitor blood sugars and continue with metformin and Amaryl Urine culture did grow out mixed gram-positive organisms, likely contamination. Any psychiatric treatment as per Dr. Thomas 07/22/16 Medically stable - tachycardia resolved; constipation resolved. BP stable on Lisinopril. BG under fairly good control on oral antidiabetics. Familiar with this patient from recent [facility] visit - she should also be on Lasix 10 mg daily. She has chronic lower ext. edema. Will check BMP + mg on 07/24/16 to determine need for K and Mg supplementation (she was not taking K at home). She also has a hx of dysuria and frequent UTI. Shanna Umana has recommended urologic eval in the past but pt was unable to go. Psych progress notes reviewed - Haldol dose increased and Lexapro initiated for depression. 07/24/16 Magnesium level was low at 1.3, and replacement has been ordered. Potassium level was normal at 4.2. Will recheck magnesium level tomorrow morning. Vital signs are stable. Blood sugars overall are under fairly good control - she tends to run the highest 2 hours after supper, with sugars between 150s- 170s. Fastings have been less than 120. Psychiatric progress notes reviewed. Discussed with nursing staff. MELINDA RANGEL APRN Jul 24, 2016 08:35
[2016-07-24 08:47] VITALS: BP 146/68; PULSE 95; RESP 16; TEMP 97.4; O2SAT 99
[2016-07-24] MEDS: ASPIRIN 81 MG CHEWABLE TABLET PO SCH (08:49)
[2016-07-24] MEDS: HALOPERIDOL 1 MG TABLET PO SCH ×2 (08:50→20:25)
[2016-07-24] MEDS: FUROSEMIDE 20 MG TABLET PO SCH (08:50)
[2016-07-24] MEDS: GLIMEPIRIDE 2 MG TABLET PO SCH (08:50)
[2016-07-24] MEDS: METFORMIN 500 MG TABLET PO SCH ×2 (08:50→17:03)
[2016-07-24] MEDS: LISINOPRIL 5 MG TABLET PO SCH (08:50)
[2016-07-24] MEDS: ESCITALOPRAM 10 MG TABLET PO SCH (08:51)
[2016-07-24] MEDS: POLYETHYL.GLYCOL 3350 PACKET 17gm PO SCH (08:56)
[2016-07-24] MEDS: TIMOLOL 0.5% EYE DROPS 5ml RIGHT EYE SCH ×2 (08:57→20:25)
[2016-07-24] MEDS: NYSTATIN POWDER 15gm BOTTLE TOP SCH ×2 (08:57→20:25)
--- NOTE | 2016-07-24 09:00 | NUR ---
status pt alert and oriented x3. pleasant and cooperative with all medication this am. able to make needs known. uses walker with standby assist with transfers. denies any pain at this time.
[2016-07-24] MEDS: MAGNESIUM OXIDE 400 MG TABLET PO SCH (09:07)
--- NOTE | 2016-07-24 10:23 | NUR ---
BRACELET FORMER--INDIVIDUAL CSW met 1:1 with pt. She was alert, Ox3, calm, cooperative with pleasant mood. She reports having a quiet but good weekend. She thinks she got in trouble because her son asked about coming up to the hospital to watch the 3 yazidi services that they normally watch together on Sunday morning (beginning at 6:00 a.m.). When she returned to her room, someone had posted a flyer in her room that listed visiting hours as 11:00 to 1:00 and 4:300 - 8:00. This SW assured pt. that she and her son had done nothing wrong. Explained that those are the recommended visiting hours but there are no restrictions on visitation for families. The pt. stated she was sure hopeful that her family would give her a chance to try returning home. She thought with just some assistance with getting groceries and to doctor's appts. she could manage. This SW advised pt. that her family was still looking for a different place to live where she could receive some assistance, such as medication management, meal preparation, laundry, etc. Pt. is hopeful she can go to some place where she can take her own furniture and have her own space. [facility]'s daughter, Renetta. She said she had made a f.u. phone call to [facility] and pt's application is still being considered for LTC. Renetta expressed interest in possibility of pt. moving to [place] instead of LTC if medicaid would pay for that level of care. Advised Renetta that the CM would help her locate facility, such as [facility], that does take Medicaid.
[2016-07-24 16:00] VITALS: BP 146/96; PULSE 95; RESP 16; TEMP 97.4; O2SAT 99
--- NOTE | 2016-07-24 18:22 | NUR ---
summary pt has been pleasant, pt in a good mood and participates in activities. pt folded towels and wash rags. eats a moderate amount for all meals. pt denies any visual or auditory hallucinations. takes all medication prescribed. pt slept 1.0 hrs this shift.
[2016-07-24 20:00] VITALS: BP 163/64; PULSE 103; RESP 16; TEMP 97.8; O2SAT 99
[2016-07-24] MEDS ORDERED: MAGNESIUM OXIDE 400 MG TABLET PO ONE (20:00)
[2016-07-24] MEDS: ATORVASTATIN 10 MG TABLET PO SCH (20:25)
--- NOTE | 2016-07-24 23:35 | NUR ---
Status Pt was cooperative with assessment, medications and cares. Pt has had no visual and auditory hallucinations so far tonight and has had no complaints of pain. Pt has not had any PRN medications and no behaviors so far this shift. Pt is in bed sleeping with side rails up x2 and bed alarm activated.
--- NOTE | 2016-07-25 00:17 | GENPN ---
[facility] Subjective Date DATE: 07/24/16 Subjective/Severity of Illness Medications Current Medications Medications (Trade) Dose Ordered Sig/Nadine Start Time Stop Time Status Last Admin Dose Admin Atorvastatin Calcium (LIPITOR 10 mg) 10 mg HS 07/18/16 21:00 07/24/16 20:25 10 MG Escitalopram Oxalate (LEXAPRO 10mg) 10 mg DAILY 07/18/16 09:00 07/19/16 17:27 DC 07/19/16 09:44 10 MG Glimepiride (Amaryl) 2 mg WB 07/18/16 08:00 07/24/16 08:50 2 MG Haloperidol (Haldol) 0.5 mg BID 07/18/16 09:00 07/19/16 17:26 DC 07/19/16 09:45 0.5 MG Lisinopril (Prinivil) 5 mg DAILY 07/18/16 09:00 07/24/16 08:50 5 MG Metformin HCl (Glucophage) 500 mg BIDWM 07/18/16 08:00 07/24/16 17:03 500 MG Timolol Hemihydrate (Timoptic 0.5% Eye Drops) 1 drop BID 07/18/16 09:00 07/24/16 20:25 1 DROP Miscellaneous Medication (May use PRN orders) 1 PRN PRN 07/18/16 02:00 Haloperidol (Haldol) 0.5 mg Q6H PRN 07/18/16 02:00 Lorazepam (Ativan) 0.5 mg Q6H PRN 07/18/16 02:00 07/18/16 02:30 0.5 MG Lorazepam (Ativan) 0.5 mg Q6H PRN 07/18/16 02:00 Haloperidol Lactate (Haldol 5 Mg/ml Inj) 0.5 mg Q6H PRN 07/18/16 02:00 Nystatin (Nystatin Powder) 1 applic BID 07/18/16 12:45 07/24/16 20:25 1 APPLIC Aspirin (ASA) 81 mg DAILY 07/19/16 09:00 07/24/16 08:49 81 MG Haloperidol (Haldol) 0.5 mg DAILY 07/20/16 09:00 07/20/16 21:56 DC 07/20/16 09:08 0.5 MG Haloperidol (Haldol) 1 mg HS 07/19/16 21:00 07/20/16 21:56 DC 07/20/16 20:46 1 MG Escitalopram Oxalate (LEXAPRO 10mg) 15 mg DAILY 07/20/16 09:00 07/24/16 08:51 15 MG Magnesium Hydroxide (Mom) 30 ml DAILY PRN 07/20/16 13:45 07/20/16 13:41 30 ML Polyethylene Glycol (Miralax) 17 g DAILY 07/20/16 15:15 07/24/16 08:56 17 G Bisacodyl (Dulcolax) 10 mg DAILY PRN 07/20/16 15:15 Haloperidol (Haldol) 1 mg BID 07/21/16 09:00 07/24/16 20:25 1 MG Furosemide (Lasix) 10 mg DAILY 07/22/16 09:15 07/24/16 08:50 10 MG Magnesium Oxide (Magox) 800 mg DAILY 07/24/16 09:00 07/24/16 09:07 800 MG Subjective Patient seen and chart reviewed. She was seen in the company of her daughter and her son-in law. Patient reports no new problem and feels that she is doing better now than on presentation. She states that she had visual hallucinations prior to presentation and there is none now. Patient describes her mood as "good " and reports that she has good appetite and sleep well at night. She denies any auditory or visual hallucinations. She denies any SI/HI. The medical team is following patient's hypomagnesemia. Family feels like patient is back to her baseline and the plan will be for patient to be transferred to SNF for further recuperation. Time of Service: 18:45 Start Time: 18:45 Stop Time: 19:00 Care >50% of this visit spent in counseling/coordination care. [facility] Exam Vitals Vital Signs Date Time Temp Pulse Resp B/P Pulse Ox O2 Delivery O2 Flow Rate FiO2 07/24/16 16:00 97.4 95 16 146/96 99 Room Air Physical examination performed by the hospitalist. Height (Feet): 4 Height (Inches): 11.00 Mental Status Exam Muscle Strength/Tone: Normal Dressing: Casual Grooming: Good Attitude: Cooperative Motor Activity: Normal Eye Contact: Good Speech: Normal Volume: Normal Rhythm: Appropriate Rhythm Sensory: Alert Orientation: Oriented to person, Oriented to place, Oriented to time Mood: Euthymic Affect: Congruent Rate of Thoughts: Appropriate Rate Thought Organization: Organized Associations: Intact Abstract Reasoning: Other (fair) Computation: Poor Computation Thought Content: Normal Perception/Psychotic: Hx psychosis,not current Attention Span/Concentration: Normal Language: Naming Intact Fund of Knowledge: Flako aware current events Memory: Grossly Intact Suicidal Ideation: None Homicidal Ideation: None Insight: Fair Judgment: Fair Impulse Control: Fair Laboratory Tests Test 07/24/16 06:41 Turbidity < 20 Sodium Level 141MEQ/L Potassium Level 4.2MEQ/L Chloride Level 99MEQ/L Carbon Dioxide Level 31MEQ/L Anion Gap 11MEQ/L Blood Urea Nitrogen 16.0MG/DL Creatinine 0.8MG/DL Glomerular Filtration Rate Calc 69 BUN/Creatinine Ratio 20RATIO Glucose Level 108MG/DL Glucometer 111mg/dL Calculated Osmolality 273MOSM/KG Calcium Level 9.7MG/DL Magnesium Level 1.3MG/DL Icterus Index < 2 Chemistry Specimen Hemolysis < 15 Assessment and Plan (1) Unspecified psychosis Assessment: 07/18/16: Continue current medications. 07/19/16: Increase Haldol to 0.5mg PO q AM and 1mg PO q HS to target continued psychosis, increase Lexapro to 15mg PO daily to target suspected depression. 07/20/16: Increase Haldol to 1mg PO BID to target continued paranoia 07/21/16 Continue current care 07/22/16 Continue current care 07/23/16 Continue current care 07/24/16: Cont current care (2) Depression Assessment: suspected (3) Neurocognitive disorder Assessment: unspecified (4) Type II diabetes mellitus (5) Dyslipidemia (6) Hypertension (7) Osteoarthritis Cont. current psych. meds DUSTIN STANTON MD Jul 25, 2016 00:13
--- NOTE | 2016-07-25 01:20 | NUR ---
Chart Check 24 hour chart check completed
--- NOTE | 2016-07-25 06:34 | NUR ---
Summary Pt slept 9.25 hours tonight. Pt has had no auditory or visual hallucinations this shift. She has had no behaviors, no complaints of pain and no PRN medications. Pt uses her call light appropriately and is very pleasant and cooperative in affect. Pt is currently in bed sleeping sith side rails up x 2 and bed alarm activated.
[2016-07-25 08:00] VITALS: PULSE 92; RESP 16
[2016-07-25 08:12] VITALS: BP 151/69; PULSE 92; RESP 16; TEMP 97.2; O2SAT 97
[2016-07-25] MEDS: GLIMEPIRIDE 2 MG TABLET PO SCH (08:18)
[2016-07-25] MEDS: ESCITALOPRAM 10 MG TABLET PO SCH (08:19)
[2016-07-25] MEDS: METFORMIN 500 MG TABLET PO SCH ×2 (08:19→18:00)
[2016-07-25] MEDS: FUROSEMIDE 20 MG TABLET PO SCH (08:21)
[2016-07-25] MEDS: ASPIRIN 81 MG CHEWABLE TABLET PO SCH (08:21)
[2016-07-25] MEDS: LISINOPRIL 5 MG TABLET PO SCH (08:21)
[2016-07-25] MEDS: HALOPERIDOL 1 MG TABLET PO SCH ×2 (08:21→20:15)
[2016-07-25] MEDS: POLYETHYL.GLYCOL 3350 PACKET 17gm PO SCH (08:21)
[2016-07-25] MEDS: NYSTATIN POWDER 15gm BOTTLE TOP SCH ×2 (08:22→20:16)
[2016-07-25] MEDS: TIMOLOL 0.5% EYE DROPS 5ml RIGHT EYE SCH ×2 (08:22→20:15)
[2016-07-25] MEDS: MAGNESIUM OXIDE 400 MG TABLET PO SCH (08:37)
--- NOTE | 2016-07-25 09:21 | NUR ---
[employer] SUPERVISOR--FAMILY CONTACT [facility] returned phone call to pt's daughter/DPOA- (Renetta--[phone]). Renetta visited her mother last night and feels she has improved significantly. She said her mother is aware of the type of unit she is on and is very self-conscious about being here. She said her mother is somewhat afraid of the behaviors exhibited by some of the other patients. Renetta has been in regular contact with CM (Edwin). This SW explained that CM is trying to locate skilled bed where pt. can receive therapy to help build endurance and safety awareness. Daughter has given CM names of multiple facilities to contact. Daughter is hopeful pt. can discharge soon.
--- NOTE | 2016-07-25 13:41 | NUR ---
REHAB LIAISON--INDIVIDUAL LSCSW met with pt. 1:1 while she was sitting at the table. She is alert, Ox1, calm, with pleasant mood. She is aware that she will be discharging soon and she expresses hope that her family will give her the chance to go back home, even if just for a little while. She says going home will give her the chance to "get ready" for the move. This SW explained that the doctor has recommended that she go to a skilled bed in order to receive physical therapy to help her get stronger and to be safe. She does not remember how confused she was when she first arrived on the unit. Pt. did agree that she thought that might be a good idea and she said she figured she would adjust. Ended conversation by talking about variety of topics, including jones and gardening.
--- NOTE | 2016-07-25 14:58 | NUR ---
JAD CM SPOKE WITH DAUGHTER VIA PHONE AND CM HAS MADE REFERRALS TO FACILITIES THAT SHE HAS REQUESTED. [facility] HAS DECLINED AND CM IS AWAITING [facility] AND [facility]ONSE. CM HAS LEFT MESSAGES. DAUGHTER IS AWARE OF STATUS.
--- NOTE | 2016-07-25 15:03 | NUR ---
STATUS Pt is AO x 3. Pt has been pleasant, cooperative with cares and assessment, Pt states she had pain this morning, states it might be from sleeping in the hospital bed because it's not very comfortable. Pt states pain comes and goes, pain medication was offered and Pt refused it. Pt was told that pain medication was available. Pt has been in a happy mood, speech is clear and appropriate. She is able to verbalize needs. No hallucinations noted, no inappropriate behaviors noted. Pt denies needs or concerns at the moment, she is currently resting in her room, chair alarm is on, staff is near by.
--- NOTE | 2016-07-25 15:57 | NUR ---
WARP HAULER--PM GROUP Pt. was asleep in her recliner in her room and did not participate in psychosocial group facilitated by [facility].
[2016-07-25 16:00] VITALS: BP 130/57; PULSE 80; RESP 16; TEMP 97; O2SAT 99
--- NOTE | 2016-07-25 19:51 | NUR ---
SUMMARY Pt is AO x 3. Patient has been pleasant, cooperative with cares, compliant with medications. No hallucinations noted, no inappropriate behaviors noted. No PRN medications given this shift. Pt complained of not feeling well this evening, states she felt weak. Pt stated she was concern about her blood sugar. Blood sugar was checked and it was 54. Peanut butter and crackers was given, Patient also had ice cream. During follow up Patient blood sugar was 108. Pt states she felt better after after eating the snack, she also had dinner after eating her snack. family was here visiting with her. Pt was happy and smiles, and initiates conversations with staff at times. She is able to verbalize needs. Pt denies needs or concerns at the moment.
--- NOTE | 2016-07-25 20:04 | GENPN ---
[facility] Subjective Date DATE: 07/25/16 TIME: 19:55 Subjective/Severity of Illness Medications Current Medications Medications (Trade) Dose Ordered Sig/Nadine Start Time Stop Time Status Last Admin Dose Admin Atorvastatin Calcium (LIPITOR 10 mg) 10 mg HS 07/18/16 21:00 07/24/16 20:25 10 MG Escitalopram Oxalate (LEXAPRO 10mg) 10 mg DAILY 07/18/16 09:00 07/19/16 17:27 DC 07/19/16 09:44 10 MG Glimepiride (Amaryl) 2 mg WB 07/18/16 08:00 07/25/16 08:18 2 MG Haloperidol (Haldol) 0.5 mg BID 07/18/16 09:00 07/19/16 17:26 DC 07/19/16 09:45 0.5 MG Lisinopril (Prinivil) 5 mg DAILY 07/18/16 09:00 07/25/16 08:21 5 MG Metformin HCl (Glucophage) 500 mg BIDWM 07/18/16 08:00 07/25/16 18:00 500 MG Timolol Hemihydrate (Timoptic 0.5% Eye Drops) 1 drop BID 07/18/16 09:00 07/25/16 08:22 1 DROP Miscellaneous Medication (May use PRN orders) 1 PRN PRN 07/18/16 02:00 Haloperidol (Haldol) 0.5 mg Q6H PRN 07/18/16 02:00 Lorazepam (Ativan) 0.5 mg Q6H PRN 07/18/16 02:00 07/18/16 02:30 0.5 MG Lorazepam (Ativan) 0.5 mg Q6H PRN 07/18/16 02:00 Haloperidol Lactate (Haldol 5 Mg/ml Inj) 0.5 mg Q6H PRN 07/18/16 02:00 Nystatin (Nystatin Powder) 1 applic BID 07/18/16 12:45 07/25/16 08:22 1 APPLIC Aspirin (ASA) 81 mg DAILY 07/19/16 09:00 07/25/16 08:21 81 MG Haloperidol (Haldol) 0.5 mg DAILY 07/20/16 09:00 07/20/16 21:56 DC 07/20/16 09:08 0.5 MG Haloperidol (Haldol) 1 mg HS 07/19/16 21:00 07/20/16 21:56 DC 07/20/16 20:46 1 MG Escitalopram Oxalate (LEXAPRO 10mg) 15 mg DAILY 07/20/16 09:00 07/25/16 08:19 15 MG Magnesium Hydroxide (Mom) 30 ml DAILY PRN 07/20/16 13:45 07/20/16 13:41 30 ML Polyethylene Glycol (Miralax) 17 g DAILY 07/20/16 15:15 07/25/16 08:21 17 G Bisacodyl (Dulcolax) 10 mg DAILY PRN 07/20/16 15:15 Haloperidol (Haldol) 1 mg BID 07/21/16 09:00 07/25/16 08:21 1 MG Furosemide (Lasix) 10 mg DAILY 07/22/16 09:15 07/25/16 08:21 10 MG Magnesium Oxide (Magox) 800 mg DAILY 07/24/16 09:00 07/25/16 10:00 DC 07/25/16 08:37 800 MG Subjective Patient seen and chart reviewed. S Patient reports no new problem and feels that she is doing well. She had good night sleep and has fair to good appetite. She is tolerating her medication and denies any side effect. Staff reports n behavioral problem in the unit . She denies any auditory or visual hallucinations. She denies any SI/HI. The medical team is following patient's hypomagnesemia. The plan is for patient to be transferred to SNF for further recuperation. Sleep: 9 hours. PRN: None Time of Service: 18:00 Start Time: 18:00 Stop Time: 18:15 Care >50% of this visit spent in counseling/coordination care. [facility] Exam Vitals Vital Signs Date Time Temp Pulse Resp B/P Pulse Ox O2 Delivery O2 Flow Rate FiO2 07/25/16 16:00 97.0 80 16 130/57 99 Room Air Physical examination performed by the hospitalist. Height (Feet): 4 Height (Inches): 11.00 Mental Status Exam Muscle Strength/Tone: Weak Dressing: Casual Grooming: Good Attitude: Cooperative Motor Activity: Normal Eye Contact: Good Speech: Normal Volume: Normal Rhythm: Appropriate Rhythm Sensory: Alert Orientation: Oriented to person, Oriented to place, Oriented to time Mood: Neutral Affect: Congruent Rate of Thoughts: Appropriate Rate Thought Organization: Age appropriate Associations: Intact Abstract Reasoning: Impaired, concrete Computation: Poor Computation Thought Content: Normal Perception/Psychotic: Hx psychosis,not current Attention Span/Concentration: Normal Language: Naming Impaired Fund of Knowledge: Poor fund of knowledge Memory: Poor-immediate, Poor-recent Suicidal Ideation: None Homicidal Ideation: None Insight: Fair Judgment: Fair Impulse Control: Fair Laboratory Tests Test 07/25/16 04:52 07/25/16 06:44 07/25/16 16:11 Magnesium Level 1.7MG/DL Glucometer 98mg/dL 57mg/dL Assessment and Plan (1) Unspecified psychosis Assessment: 07/18/16: Continue current medications. 07/19/16: Increase Haldol to 0.5mg PO q AM and 1mg PO q HS to target continued psychosis, increase Lexapro to 15mg PO daily to target suspected depression. 07/20/16: Increase Haldol to 1mg PO BID to target continued paranoia 07/21/16 Continue current care 07/22/16 Continue current care 07/23/16 Continue current care 07/24/16: Cont current care 07/25/16: Cont current care. (2) Depression Assessment: suspected (3) Neurocognitive disorder Assessment: unspecified (4) Type II diabetes mellitus (5) Dyslipidemia (6) Hypertension (7) Osteoarthritis Cont. current psych. meds DUSTIN STANTON MD Jul 25, 2016 20:01
[2016-07-25] MEDS: ATORVASTATIN 10 MG TABLET PO SCH (20:15)
--- NOTE | 2016-07-25 23:04 | NUR ---
SHIFT SUMMARY PATIENT HAS BEEN PLEASANT AND COOPERATIVE WITH STAFF. SHE WAS COMPLIANT WITH TAKING ALL HER NIGHT MEDS WHOLE. PATIENT WAS COOPERATIVE DURING ASSESSMENT, SHE IS VERY AWARE OF HER SURROUNDINGS, ALERT/ORIENTED X3. NO PRN'S GIVEN OF NOW. PATIENT DENIES HALLUCINATIONS AND SUICIDAL IDEATION. PATIENT REMAINED IN BED WITH BED RAILS UP X2 AND BED ALARM ON.
[2016-07-26 00:23] VITALS: BP 124/61; PULSE 89; RESP 14; TEMP 97.8; O2SAT 97
--- NOTE | 2016-07-26 03:25 | NUR ---
Chart Check 24 hour chart check completed
--- NOTE | 2016-07-26 06:49 | NUR ---
Summary Pt. is alert and oriented x3. Pt. denies pain. Pt. is continent of urine. Pt. transfers with x1 and FWW. Pt. denies auditory and visual hallucinations. No prn meds given .Pt. FBS 73. Pt. slept 7 hours. Pt. is resting in bed with the bed alarm activated and SR up x2.
[2016-07-26] MEDS: ASPIRIN 81 MG CHEWABLE TABLET PO SCH (07:50)
[2016-07-26] MEDS: GLIMEPIRIDE 2 MG TABLET PO SCH (07:50)
[2016-07-26] MEDS: HALOPERIDOL 1 MG TABLET PO SCH (07:50)
[2016-07-26] MEDS: ESCITALOPRAM 10 MG TABLET PO SCH (07:51)
[2016-07-26] MEDS: FUROSEMIDE 20 MG TABLET PO SCH (07:51)
[2016-07-26] MEDS: LISINOPRIL 5 MG TABLET PO SCH (07:51)
[2016-07-26] MEDS: METFORMIN 500 MG TABLET PO SCH (07:51)
[2016-07-26 08:00] VITALS: BP 135/57; PULSE 81; RESP 16; TEMP 97.7; O2SAT 97
[2016-07-26 08:52] VITALS: PULSE 81; RESP 16
[2016-07-26] MEDS: POLYETHYL.GLYCOL 3350 PACKET 17gm PO SCH (09:00)
[2016-07-26] MEDS: NYSTATIN POWDER 15gm BOTTLE TOP SCH (09:23)
[2016-07-26] MEDS: TIMOLOL 0.5% EYE DROPS 5ml RIGHT EYE SCH (09:23)
[2016-07-26] MEDS ORDERED: NYST10PO TOP (11:12)
[2016-07-26] MEDS ORDERED: FURO20TA4 PO (11:12)
[2016-07-26] MEDS ORDERED: POLY17PO18 PO (11:12)
--- NOTE | 2016-07-26 13:58 | NUR ---
CM PT WILL D/C TO [facility] TODAY. THEY WILL TRANSPORT PT AT 4:00PM. PT DAUGHTER FAM AND SHE IS AWARE OF D/C PLAN FOR TODAY. SHE HAS SPOKEN WITH CHELSEA FROM [facility] AND IS AWARE THAT HE MOTHER WILL GET SKILLED CARE FROM [facility] AND THEN WILL GO TO [facility] FOR AL SERVICES DUE TO [facility] REQUIRES 12 MONTHS ASSETS. FAM IS AWARE TO CONTACT IF NEEDS ARISE.
--- NOTE | 2016-07-26 14:14 | NUR ---
DIRECTOR OF EMAIL MARKETING--INDIVIDUAL Pt. is discharging this afternoon to skilled bed in [facility]. Pt. was alert, Ox3, calm with pleasant mood. She was advised about the discharge and expressed disappointment because she thought she was going to be going home. Talked with pt. about the positive aspects of this change. Pt's daughter called about this time and session was ended with pt.
[2016-07-26] MEDS ORDERED: HALO1TAB PO (14:15)
--- NOTE | 2016-07-26 14:46 | NUR ---
SUMMARY Pt is AO x 3. Pt has been pleasant, cooperative with cares, compliant with medications. Patient has denied pain this shift. Pt has been in a happy mood, she play a game and participated in activities today. Pt speech is clear and appropriate, she is able to verbalize needs. Pt was concern about her blood sugars, she ate like 25 % of her lunch, patient was told that she can eat a snack in between meals if she wants to and we can check her blood sugars if she is concerns. Pt will be discharge today to [facility]. Patient appears to be happy she is living. Pt denies needs or concerns at the moment.
--- NOTE | 2016-07-26 17:48 | NUR ---
Discharge Patient is dismissed from the unit at 1650; is transported via van to [facility]. Belongings packed and sent per personal inventory list. Patient is accompanied to the front doors by [facility] staff. Report called to ALAYNA Das; unit contact information given along with plans for follow-up care with PCP and MH professional as outlined in P[facility]. No pending labs on discharge
--- NOTE | 2016-07-27 11:19 | GENPN ---
[facility] Subjective Date DATE: 07/26/16 TIME: 1500 Subjective/Severity of Illness Medications Current Medications Medications (Trade) Dose Ordered Sig/Nadine Start Time Stop Time Status Last Admin Dose Admin Atorvastatin Calcium (LIPITOR 10 mg) 10 mg HS 07/18/16 21:00 07/26/16 17:11 DC 07/25/16 20:15 10 MG Escitalopram Oxalate (LEXAPRO 10mg) 10 mg DAILY 07/18/16 09:00 07/19/16 17:27 DC 07/19/16 09:44 10 MG Glimepiride (Amaryl) 2 mg WB 07/18/16 08:00 07/26/16 17:11 DC 07/26/16 07:50 2 MG Haloperidol (Haldol) 0.5 mg BID 07/18/16 09:00 07/19/16 17:26 DC 07/19/16 09:45 0.5 MG Lisinopril (Prinivil) 5 mg DAILY 07/18/16 09:00 07/26/16 17:11 DC 07/26/16 07:51 5 MG Metformin HCl (Glucophage) 500 mg BIDWM 07/18/16 08:00 07/26/16 17:11 DC 07/26/16 07:51 500 MG Timolol Hemihydrate (Timoptic 0.5% Eye Drops) 1 drop BID 07/18/16 09:00 07/26/16 17:11 DC 07/26/16 09:23 1 DROP Miscellaneous Medication (May use PRN orders) 1 PRN PRN 07/18/16 02:00 07/26/16 17:11 DC Haloperidol (Haldol) 0.5 mg Q6H PRN 07/18/16 02:00 07/26/16 17:11 DC Lorazepam (Ativan) 0.5 mg Q6H PRN 07/18/16 02:00 07/26/16 17:11 DC 07/18/16 02:30 0.5 MG Lorazepam (Ativan) 0.5 mg Q6H PRN 07/18/16 02:00 07/26/16 17:11 DC Haloperidol Lactate (Haldol 5 Mg/ml Inj) 0.5 mg Q6H PRN 07/18/16 02:00 07/26/16 17:11 DC Nystatin (Nystatin Powder) 1 applic BID 07/18/16 12:45 07/26/16 17:11 DC 07/26/16 09:23 1 APPLIC Aspirin (ASA) 81 mg DAILY 07/19/16 09:00 07/26/16 17:11 DC 07/26/16 07:50 81 MG Haloperidol (Haldol) 0.5 mg DAILY 07/20/16 09:00 07/20/16 21:56 DC 07/20/16 09:08 0.5 MG Haloperidol (Haldol) 1 mg HS 07/19/16 21:00 07/20/16 21:56 DC 07/20/16 20:46 1 MG Escitalopram Oxalate (LEXAPRO 10mg) 15 mg DAILY 07/20/16 09:00 07/26/16 17:11 DC 07/26/16 07:51 15 MG Magnesium Hydroxide (Mom) 30 ml DAILY PRN 07/20/16 13:45 07/26/16 17:11 DC 07/20/16 13:41 30 ML Polyethylene Glycol (Miralax) 17 g DAILY 07/20/16 15:15 07/26/16 17:11 DC 07/25/16 08:21 17 G Bisacodyl (Dulcolax) 10 mg DAILY PRN 07/20/16 15:15 07/26/16 17:11 DC Haloperidol (Haldol) 1 mg BID 07/21/16 09:00 07/26/16 17:11 DC 07/26/16 07:50 1 MG Furosemide (Lasix) 10 mg DAILY 07/22/16 09:15 07/26/16 17:11 DC 07/26/16 07:51 10 MG Magnesium Oxide (Magox) 800 mg DAILY 07/24/16 09:00 07/25/16 10:00 DC 07/25/16 08:37 800 MG Subjective Patient seen and chart reviewed. Patient feels ready to be discharge and denies any new problem today. Her appetite has been fair to good and she has been sleeping well at night. Staff reports no behavioral problems and no perceptual changes. Patient describes her mood as "good" and denies any SI/HI and no AH/ VH. She is tolerating her medication and no side effect. PRN: None Time of Service: 15:00 Start Time: 15:00 Stop Time: 15:15 Care >50% of this visit spent in counseling/coordination care. [facility] Exam Vitals Vital Signs Date Time Temp Pulse Resp B/P Pulse Ox O2 Delivery O2 Flow Rate FiO2 07/26/16 08:52 81 16 07/26/16 08:00 97.7 135/57 97 Room Air Physical examination performed by the hospitalist. Height (Feet): 4 Height (Inches): 11.00 Mental Status Exam Muscle Strength/Tone: Normal (ambulates with a walker) Dressing: Casual Grooming: Good Attitude: Cooperative Motor Activity: Normal Eye Contact: Good Speech: Normal Volume: Normal Rhythm: Appropriate Rhythm Sensory: Alert Orientation: Oriented to person, Oriented to place, Oriented to time Mood: Euthymic, Other ("good") Affect: Congruent Rate of Thoughts: Appropriate Rate Thought Organization: Organized Associations: Intact Abstract Reasoning: Poor abstract reasoning Computation: Poor Computation Thought Content: Normal Perception/Psychotic: Hx psychosis,not current Attention Span/Concentration: Normal Language: Naming Intact Fund of Knowledge: Flako aware current events Memory: Poor-immediate Suicidal Ideation: None Homicidal Ideation: None Insight: Fair Judgment: Fair Impulse Control: Fair Laboratory Tests Test 07/26/16 15:17 Glucometer 148mg/dL Assessment and Plan (1) Unspecified psychosis Assessment: 07/18/16: Continue current medications. 07/19/16: Increase Haldol to 0.5mg PO q AM and 1mg PO q HS to target continued psychosis, increase Lexapro to 15mg PO daily to target suspected depression. 07/20/16: Increase Haldol to 1mg PO BID to target continued paranoia 07/21/16 Continue current care 07/22/16 Continue current care 07/23/16 Continue current care 07/24/16: Cont current care 07/25/16: Cont current care. 07/26/16: discharge [facility] to [facility] (2) Depression Assessment: suspected (3) Neurocognitive disorder Assessment: unspecified (4) Type II diabetes mellitus (5) Dyslipidemia (6) Hypertension (7) Osteoarthritis Cont. current psych. meds DUSTIN STANTON MD Jul 27, 2016 11:16
--- NOTE | 2016-07-27 11:41 | DSPDOC ---
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 Acute Delirium due medical condition with mixed level of activity Laboratory Laboratory Tests Test 07/26/16 05:47 07/26/16 15:17 Glucometer 73mg/dL (65-110) 148mg/dL (65-110) History of Present Illness Patient is a retired, 80-year-old female admitted to [facility] on 07/17/[address] [facility] after being brought by her family due to new-onset increased confusion and hallucinations, which continued in the ED. Patient has been living in the community with her son, who moved in with her a couple of months ago due to her difficulty completing ADLs. Patient did have similar symptoms 2 weeks go with a bladder infection but not found to have a UTI upon admission. She was also started on Haldol 0.5mg PO BID at that time and has reportedly been adherent with this medication. Per family, she has been talking to people who are not there, asking things to do things for her, etc. Patients son reported that she has been sleeping 4-5 hours per night though she will get up 4-5 times/night to use the restroom. He has denied any observed change in appetite. Patient was not observed responding to internal stimuli during our interview but was reportedly doing so in the ED upon admission. Upon interview, patient is sitting calmly in dayroom alongside peers. She is pleasant and cooperative with me. She is oriented to self and situation, stating that she is here because her kids think she has too many imaginary friends. When she tells them about something she has seen, they tell her there is nothing there. This has been frustrating for her as she feels that they do not believe her. She reports that her mood is happy other than related to this situation, but then endorses occasional morbid thoughts about not wanting to be here anymore. When I clarified what she meant by this, she stated in this situation with her VH and children not in the hospital. She denies active SI and endorses her sadie as a protective factor. She denies any history of AH (though observed having conversations with people who were not there) or HI. Patient denies any history of depression previously. She does endorse worrying occasionally about how she will get to doctors appointments since giving up driving. She denies any change in sleep or appetite, but reports daytime fatigue. She reports enjoying visiting with her grandchildren though some of them are in their 20s now and she does not get to see them as often. Past psychiatric history: Patient denies any history of past psychiatric care, depression, suicide attempts or psychiatric hospitalizations. Depression: decreased energy, sleep disturbance (due to urinary symptoms per son), morbid thinking Psychosis: auditory, visual Dementia: memory impairment Anxiety: worries (seem to be mild) Hospital Course The patient was admitted to [facility] on 07/17/16 and discharged on 07/26/16. After the initial evaluation, the patient was placed on (suicide, homicide) precautions. Based on the diagnostic interview and collateral information provided by her family, the patient was diagnosed with Major Neurocognitive disorder with Behavioral disturbance, Psychosis in elderly and delirium possibly due to UTI with mixed level of activity. The patient did report some symptoms in the past consistent with the diagnosis. She had visual hallucinations and was said to be paranoid. Her CT head was un remarkable for any acute changes. The patient was started on Haloperidol which was titrated to 1mg BID and she was also started on Lexapro 10mg which was later increased to 15mg daily. The medical managed the UTI and also followed patient for her other co-morbid conditions. Patient had hypomagnesemia and received magnesium supplement and the medical recommended re-check of magnesium 1 week post discharge. Prior to the patient's agreement of medication trials, the side effects, risk and benefits of all medications were discussed with the family. The patient tolerated medications well and without any side effects. During the hospitalization, the patient participated in unit activities, did not have self-harming behavior or aggressive outbursts. Throughout the hospitalization, the patient reported improvement of symptoms and psychotic symptoms. The patient symptoms continued to improve with treatment. The treatment plan was in place. The family was contacted prior to dismissal, remained supportive of the patient and understood the plan. At this time, the patient was stable and ready for discharge with follow-up scheduled. The medical team recommended a recheck of patients magnesium level in 1 week. The treatment team and family members voiced understanding of the plan during the hospital stay and on discharge. All were in agreement with the plan for discharge to detention. Problems: Code Status Do Not Resuscitate Home Meds Active Scripts Haloperidol (Haloperidol) 1 Mg Tablet, 1 MG PO BID for 30 Days, #60 TAB 0 Refills Prov:DUSTIN STANTON MD 07/26/16 Polyethylene Glycol 3350 (Healthylax) 17 Gm Powd.pack, 17 G PO DAILY for 30 Days Prov:JUAN ANTONIO QUIROS APRN 07/26/16 Furosemide (Furosemide) 20 Mg Tablet, 10 MG PO DAILY for 30 Days, #15 TAB Prov:JUAN ANTONIO QUIROS APRN 07/26/16 Nystatin (Nystatin) 50,000,000 Unit Powder.ea., 1 APPLIC TOP BID for 30 Days Prov:JUAN ANTONIO QUIROS APRN 07/26/16 Reported Medications Escitalopram Oxalate (Escitalopram Oxalate) 10 Mg Tablet, 10 MG PO DAILY 07/17/16 Lisinopril (Lisinopril) 5 Mg Tablet, 5 MG PO DAILY 06/16/16 Metformin HCl (Metformin HCl) 500 Mg Tablet, 500 MG PO BIDWM 06/13/16 Timolol Maleate (Timolol Maleate) 5 Ml Drops, 1 DROP RIGHT EYE BID 06/13/16 Glimepiride (Glimepiride) 2 Mg Tablet, 2 MG PO DAILY 06/13/16 Aspirin (Aspirin) 81 Mg Tablet, 81 MG PO DAILY 12/29/08 Atorvastatin Calcium (Lipitor) 20 Mg Tablet, 10 MG PO DAILY 12/30/08 Discontinued Reported Medications Haloperidol (Haloperidol) 0.5 Mg Tablet, 0.5 MG PO BID 07/17/16 Discontinued Scripts Dextrose (Glutose 15) 37.5 Gm Gel..gram., 37.5 G PO PRN Y for HYPOGLYCEMIA, #1 APPLIC Prov:FAM EPPS MD 06/16/16 Face to Face Encounter I met with patient on the day of dismissal and discussed follow up appointments , medications, and safety plan. Discharge Disposition long-term DUSTIN STANTON MD Jul 27, 2016 11:22
== END 2016-07-26 16:50 | DRG 884 ==
LOC: ED 18:00 → GEN 07-18 01:10
PROVIDERS: ADMIT Psychiatry & Neurology Psychiatry; ATTEND Psychiatry & Neurology Psychiatry
DX: F03.91 Unspecified dementia, unspecified severity, with behavioral disturbance (principal); F05 Delirium due to known physiological condition; F32.9 Major depressive disorder, single episode, unspecified; E11.9 Type 2 diabetes mellitus without complications; I10 Essential (primary) hypertension; Z66 Do not resuscitate; E78.5 Hyperlipidemia, unspecified; M19.91 Primary osteoarthritis, unspecified site; E83.42 Hypomagnesemia; Z79.82 Long term (current) use of aspirin
CPT/HCPCS: 36415; 80048; 80053; 80061; 80306; 80307; 81001; 82140; 82607; 82746; 82948; 83036; 83735; 84443; 84484; 85025; 87086